=== PATIENT | female | born 1960 | race Caucasian/White ===

== ENCOUNTER → 2016-10-28 | Day surgery (SDC) | payer BC ==
[2016-10-27 11:13] VITALS: Ht 165.1 cm; Wt 97.7 kg
[~2016-10-28] VITALS: Ht 165.1 cm; Wt 97.7 kg
[~2016-10-28] MED LIST: ACYC400T PO; ALBINS/ INH; ALBU0.5N2 INH; ALBU1AER9 INH; ALPR0.5T PO; AMIT10TA6 PO; ASPI81TA28 PO; AZITTAB PO; CALC600T9 PO; CALCTAB5 PO; CETI10TA10 PO; FLUT1INH7 INH; LIDOCAINE HCL 1% MPF 5 ML VIAL ONE; MONT1TAB3 PO; MULT-506 PO; OXYB5TAB74 PO; POLY335019 PO; PRED10TA PO; PRLSR20 PO; PROB1TAB16 PO; RANI1TAB77 PO; SODIUM CHLORIDE 0.9% INJ 10 ML VIAL ONE; TRIATAB3 PO; VITA400C3 PO; VNTHFA/IN INH; VOLTAREN GEL TOP; [UNRECOGNIZED DRUG - CODE] PO
--- NOTE | 2016-10-28 14:42 | History & Physical Bridge - [place] ---
H&P Re-Evaluation Bridge Note: I have examined the patient, reviewed the History & Physical and in the interval since the performance of the History & Physical I have noted the following changes of clinical significance: No changes noted
[2016-10-28 15:06] VITALS: BP 104/66; PULSE 53; TEMP 36.6; O2SAT 95
--- NOTE | 2016-10-28 15:08 | Discharge Instructions ---
Discharge Instructions Visit Reason for Visit: Lumbar Radiculopathy Discharge Discharge Diagnosis / Problem: sacral radiculopathy Discharge Goals Goal(s): Decrease discomfort, Improve function Activity Recommendations Activity Limitations: resume your previous activity Anesthesia . Post Anesthesia Instructions: If you have had General Anesthesia or IV Sedation: * Do not drive today. * Resume driving when surgeon permits. * Do not make important decisions or sign legal documents today. * Call surgeon for: 1. Temperature elevations greater than 101 degrees F. 2. Uncontrollable pain. 3. Excessive bleeding. 4. Persistent nausea and vomiting. 5. Medication intolerance (nausea, vomiting or rash). * For nausea and vomiting use only clear liquids such as: tea, soda, bouillon until nausea subsides, then gradually increase diet as tolerated. * If you have any concerns or questions, call your surgeon's office. If physician is unavailable and it is an emergency, call 911 or go to the nearest emergency room. . Diet Recommendations Recommended Home Diet: resume previous diet Procedures Procedures Performed: CAUDAL EPIDURAL STEROID INJECTION Pending Studies Studies pending at discharge: no Medical Emergencies . Who to Call and When: Medical Emergencies: If at any time you feel your situation is an emergency, please call 911 immediately. . Non-Emergent Contact Non-Emergency issues call your: Specialist . . "Provider Documentation" section prepared by Kendall Murillo.
--- NOTE | 2016-10-28 15:55 | OPERATIVE REPORT ---
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 POSTOPERATIVE DIAGNOSIS: Same. PROCEDURE: Caudal epidural steroid injection under fluoroscopic guidance. SURGEON: Dr. Kendall Murillo. INDICATIONS: The patient is a 56-year-old white female that has had persistent sacral radicular pain following a Tarlov cyst resection. It has not responded to conservative measures including gabapentin trials. She presents today for a caudal epidural steroid injection to provide her with relief. PHYSICAL EXAMINATION: Pleasant female seated comfortably. She has a well-healed sacral incision, nontender to palpation in the lower lumbosacral area. CONSENT: Verbal and written consent was obtained from the patient. Risks and benefits were reviewed. Risks include but are not limited to epidural abscess and allergic reaction. The patient wishes to proceed. PROCEDURE: The patient was taken back to the special procedures room of [facility]. She was maintained in a prone position. Backside was cleansed with Betadine x3 and a dry sterile dressing was applied. Fluoroscope was used to identify the sacral hiatus and the overlying skin was anesthetized with 4 mL of lidocaine 1% with a 25 gauge 1.5-inch needle and a 25 gauge 3.5-inch spinal needle was then directed into the sacral canal and advanced under lateral fluoroscopic guidance. She then underwent injection after negative aspiration of 40 mg of Depo-Medrol and 4 mL of preservative free sodium chloride. Injection was well tolerated. DISPOSITION: 1. The patient is taken out into the discharge recovery area where she will be discharged home once discharge criteria have been met. 2. Follow up in the [facility] office in 2-4 weeks. I attest to the content of the Intraoperative Record and any orders documented therein. Any exceptio ns are noted below.
== END | disposition home or self-care (01) ==
LOC: X.SURG 13:42
PROVIDERS: ATTEND Physical Medicine & Rehabilitation
DX: M54.18 Radiculopathy, sacral and sacrococcygeal region (principal); L90.5 Scar conditions and fibrosis of skin

== ENCOUNTER → 2016-10-30 | Outpatient (CLI) | payer BC ==
[~2016-10-30] MED LIST changes: -LIDOCAINE HCL 1% MPF 5 ML VIAL ONE; -SODIUM CHLORIDE 0.9% INJ 10 ML VIAL ONE
--- NOTE | 2016-10-30 16:57 | DIAGNOSTIC IMAGING REPORT ---
ULTRASOUND BILATERAL LOWER EXTREMITY VENOUS CLINICAL HISTORY: Lower extremity edema. COMPARISON STUDY: No priors. TECHNIQUE: Real-time, grayscale, and color Doppler sonography of the deep veins of the right and left lower extremity was performed from the inguinal crease to the calf. Compression and augmentation were utilized. FINDINGS: There is no sonographic evidence of deep venous thrombosis identified in the right or left lower extremity. The common femoral, superficial femoral, and popliteal veins are patent and normally compressible bilaterally. The greater saphenous vein and the profunda femoris vein at the junction with the common femoral vein are clear in both legs. The visualized calf veins are patent bilaterally. IMPRESSION: There is no sonographic evidence of deep venous thrombosis identified in the right or left lower extremity. Electronically signed by: Herve Nichols M.D. 10/30/2016 4:55 PM Dictated Date/Time: 10/30/2016 4:55 PM
== END | disposition home or self-care (01) ==
LOC: C.ULTR 16:21
PROVIDERS: ATTEND Allergy & Immunology Allergy
DX: Z00.00 Encounter for general adult medical examination without abnormal findings (principal)

== ENCOUNTER → 2017-01-18 | Outpatient (CLI) | payer BC ==
[~2017-01-18] MED LIST changes: +DICL1GEL12 TOP; +DTR/5 PO; -OXYB5TAB74 PO
== END | disposition home or self-care (01) ==
LOC: C.LAB1850 16:05
PROVIDERS: ATTEND Physician Assistant Medical
DX: B99.9 Unspecified infectious disease (principal)

== ENCOUNTER → 2017-02-01 | Outpatient (CLI) | payer BC ==
--- NOTE | 2017-02-02 13:18 | MAMMOGRAPHY REPORT ---
BILATERAL DIGITAL SCREENING MAMMOGRAM TOMOSYNTHESIS WITH CAD: 02/01/2017 CLINICAL HISTORY: Routine screening. TECHNIQUE: Breast tomosynthesis in addition to standard 2D mammography was performed. Current study was also evaluated with a Computer Aided Detection (CAD) system. COMPARISON: Comparison is made to exams dated: 01/30/2016 mammogram, 01/28/2015 mammogram, 01/26/2014 mammogram, 01/25/2013 mammogram, 01/25/2012 mammogram, and 01/21/2011 mammogram - [facility] enter. BREAST COMPOSITION: There are scattered areas of fibroglandular density in both breasts. FINDINGS: No suspicious mass, architectural distortion or cluster of microcalcifications is seen. IMPRESSION: ACR BI-RADS CATEGORY 1: NEGATIVE There is no mammographic evidence of malignancy. A 1 year screening mammogram is recommended. The p atient will receive written notification of the results. Approximately 10% of breast cancers are not detected with mammography. A negative mammographic repor t should not delay biopsy if a clinically suggestive mass is present. Lilly del real/penzana:02/01/2017 16:58:18 Silk Brusher: Eliseo Chavez RT(R)(M), [facility] letter sent: Normal 1/2 BI-RADS Code: ACR BI-RADS Category 1: Negative
== END | disposition home or self-care (01) ==
LOC: C.MAMM 15:27
PROVIDERS: ATTEND Obstetrics & Gynecology
DX: Z12.31 Encounter for screening mammogram for malignant neoplasm of breast (principal)

== ENCOUNTER 2017-03-26 11:04 | Emergency (ER) | payer BC ==
[~2017-03-26] VITALS: Ht 165.1 cm; Wt 100.0 kg
[~2017-03-26 11:04] MED LIST changes: -ALBINS/ INH; -AZITTAB PO; -CALC600T9 PO; -DICL1GEL12 TOP; -PRED10TA PO; -RANI1TAB77 PO; -VNTHFA/IN INH; -VOLTAREN GEL TOP; -[UNRECOGNIZED DRUG - CODE] PO
[2017-03-26 11:16] VITALS: TEMP 36.6; Ht 165.1 cm; Wt 100.0 kg
[2017-03-26] MEDS ORDERED: [UNRECOGNIZED DRUG - CODE] PO (11:44)
[2017-03-26] MEDS ORDERED: METHYLPREDNISOLONE 125 MG VIAL IV STA (11:55)
[2017-03-26] MEDS ORDERED: ALBUT/IPRATROP 3MG/0.5MG NEB 3 ML VIAL INH STA ×2 (11:55→12:51)
--- NOTE | 2017-03-26 12:14 | EMERGENCY ROOM VISIT NOTE ---
ED Visit Note First contact with patient: 11:41 CHIEF COMPLAINT: Shortness of breath, wheezing, chest congestion HISTORY OF PRESENT ILLNESS: This 57-year-old female patient presents to the emergency department complaining of worsening shortness of breath, wheezing, chest congestion, which was gradual in onset 1 week and is moderately severe now. Patient states last , she began experiencing chills, sneezing, runny nose, fatigue. She spent most of the day in bed. Patient states she was able to get up and go see her tearoom host on Wednesday, however continued to experience the same symptoms. Patient states on Wednesday, she began experiencing a worsening cough, worsening wheezing, overall fatigue. She states she began using DayQuil at this time with minimal relief. Patient states by Wednesday, the symptoms were worsening, and she was experiencing significant postnasal drainage, sinus congestion, wheezing, and began coughing green sputum at this point. On Wednesday, patient was seen at [facility], where a chest x-ray was performed, and she was given a breathing treatment. Patient states she was told the chest x-ray was normal, and was started on 60 mg of prednisone daily 5 days, which she has finished yesterday, and Augmentin 1 tablet twice daily for 10 days. Patient states she is now on day 6. She reported initial improvement in symptoms while on prednisone, however states symptoms have worsened since she has been off of prednisone. She states it did increase her cough the first 2-3 days. Patient states she was off work earlier this week, with instructions to get plenty of rest, use her nebulizers and/or albuterol every 4 hours, and drink plenty of fluids. She states she did this and continues to do this, however is not feeling any better, and feels that her respiratory symptoms have worsened. Patient is now experiencing wheezing/ rattling in her chest, despite the use of her albuterol nebulizer/inhaler every 4 hours. Patient denies fever or chills at this point. She also denies hemoptysis, chest pain, headache, nausea, vomiting. Patient does report cough which is minimally productive, she continues to experience sinus congestion, runny nose, postnasal drainage. The patient has a history of asthma and states she often gets wheezing when she gets sick, however this is worse than she has experienced in a while. Patient states she attempted to contact her PCP for follow-up today, however was unable to make it to the appointment which was offered to her. REVIEW OF SYSTEMS: A 10 system review of systems was performed with positives and pertinent negatives listed in the history of present illness. All other systems were reviewed and are negative. ALLERGIES: Latex, doxycycline, magnesium salicylate, bupropion, fluoxetine, sertraline, gabapentin, meloxicam, citalopram, silver MEDICATIONS: Xanax, calcium, multivitamin, oxybutynin chloride, triamterene/HCTZ , vitamin E, albuterol HFA, albuterol nebulizer solution, probiotic, acyclovir, Briel, Zyrtec, aspirin, amitriptyline, Singulair, omeprazole, MiraLAX PMH: Asthma, hypertension, anxiety, herpes virus, seasonal allergies, depression , GERD, constipation. SOCIAL HISTORY: Patient lives locally with her family. She denies drug, tobacco , alcohol use. PHYSICAL EXAM: Vital Signs: Reviewed Nurse's notes. Oxygen saturation was 94 % on room air. Patient is afebrile with temperature of 36.6C. GENERAL: 57-year- old female, Alert, oriented and coherent. The patient is able to speak in complete sentences. HEAD: Normocephalic atraumatic. EARS: External auditory canals clear, tympanic membranes pearly marks without erythema or effusion bilaterally. EYES: Pupils equal round and reactive to light and accommodation. Conjunctivae without injection, sclerae without icterus. Extraocular movements intact. NOSE: Patent, turbinates without inflammation or discharge. No sinus tenderness. MOUTH: Mucous membranes moist. Tonsils are not enlarged. Pharynx without erythema or exudate. Uvula midline. Airway patent. Tongue does not deviate. NECK: Supple without nuchal rigidity. No lymphadenopathy. No thyromegaly. Cervical spine is nontender. No JVD. CHEST: Symmetrical expansion. No retractions or accessory muscle use. HEART: Regular rate and normal heart sounds, no murmur, gallop or rub. LUNGS: Breath sounds equal but significantly diminished in intensity on both sides. Bilateral wheezes heard but no rales or pleuritic rub. SKIN: Capillary refill less than 2 seconds. EXTREMITIES: No swelling, cyanosis or tenderness in the arms or legs. EMERGENCY DEPARTMENT COURSE: I examined the patient. The patient was given an albuterol/atrovent nebulizer treatment, 125 mg IV Solu-Medrol and had minimal improvement in the subjective state. Chest x-ray was completed, and reviewed by myself, Dr. De León, and radiology. Findings show: FINDINGS: Lung volumes are normal. There is no pneumothorax or pleural effusion. There is no evidence of pulmonary edema. Minimal left basilar opacity favors atelectasis. Linear right middle lobe opacity favors atelectasis. Cardiac size is normal. Mediastinal contours are normal. IMPRESSION: Linear right middle lobe opacity. The configuration favors atelectasis. A mild infectious process could appear similar. Radiographic follow up to ensure resolution is recommended. Recheck lungs: Patient continues to wheeze, no rales, rhonchi. Wheezing has improved minimally. Repeat DuoNeb treatment, recheck lungs: Patient continues to wheeze, no rales, rhonchi. Wheezing has improved minimally. Lab work ordered to r/o PE. D-Dimer <250. At this time, patient continues to report difficulty with breathing. I ordered an hour long duoneb treatment, which patient states did help significantly at this point. I and Dr. De León re-checked patient's lungs after treatment was complete, and continued to note significant wheezing in bilateral lungs, however , I feel that this continues to improve. EKG performed which showed sinus bradycardia. No ST changes. I discussed the case with Dr. De León. We discussed options with patient including admission for observation due to possible pneumonia vs. atelectasis of right middle lobe opacity. Pt. feels that she is good enough to go home. She has been normotensive, sinus rhythm, not tachycardic, and afebrile throughout ED visit. We discussed with the patient prednisone taper, adding antibiotics, and the importance of following up with her PCP or in the ED if no improvement or if symptoms worsen. Pt. is in agreement with this plan. The patient was discharged home in stable condition. DIAGNOSIS: Acute bronchitis, with history of asthma; Right middle lobe atelectasis vs. pneumonia DIFFERENTIAL DIAGNOSIS: Pneumonia, acute asthma exacerbation, pulmonary embolism , acute upper respiratory infection, acute sinusitis, bronchiectasis, pleural effusion, pneumothorax, COPD, influenza, heart failure, acute coronary syndrome , and others. DISCHARGE INSTRUCTIONS AND TREATMENT:You were prescribed a Z-Rambo to be taken as directed. This is an antibiotic. Take this medication in addition to finishing her course of Augmentin which was prescribed by urgent care earlier this week. All antibiotics have the potential to cause diarrhea. Stop this medication and contact a medical provider if you were to develop any significant adverse side effects including: wheezing, shortness of breath, passing out, vomiting, or a diffuse rash. Always take antibiotics as directed and COMPLETE the ENTIRE course regardless of the improvement of your symptoms. You have been prescribed Prednisone. This is a steroid which will help decrease your inflammation in your lungs and help your breathing. Take this medicine as prescribed. Take the ENTIRE 10 day course. Start with 50 mg daily x2 days, then taper down as directed every 2 days for 10 days.It is best to take steroids early in the morning as PM dosing can affect your sleeping patterns. Follow-up with your primary care provider in 2-3 days for recheck of your symptoms. You should have a follow-up x-ray completed in order to recheck atelectasis versus pneumonia noticed on chest x-ray in the emergency department. Follow-up sooner in the emergency department if you experience chest pain, dyspnea, coughing up blood, fever, chills, nausea, body aches, or other worsening symptoms. Continue to use albuterol every 4-6 hours as prescribed and as needed for wheezing, trouble breathing. Problem List Medical Problems: (1) Asthma Status: Chronic (2) Mitral valve prolapse Status: Chronic (3) Sinusitis Status: Chronic Current/Historical Medications Scheduled Acyclovir (Acyclovir), 1 TAB PO QAM Amitriptyline Hcl (Elavil), 1.5 TAB PO HS Aspirin (Aspirin Ec), 81 MG PO Q2D Azithromycin (Zithromax Z-Rambo), 0 PO UD Calcium (Caltrate), 600 MG PO DAILY Cetirizine Hcl (Zyrtec), 10 MG PO QAM Fluticasone Furoate-Vilanterol (Breo Ellipta 200-25 Mcg/INH), 1 PUFF INH QAM Montelukast Sodium (Singulair), 10 MG PO HS Multivitamin (Multivitamin), 1 TAB PO DAILY Omeprazole (Prilosec), 20 MG PO QAM Oxybutynin Chloride (Ditropan), 5 MG PO QAM Prednisone Tab (Prednisone), 10 MG PO QD Probiotic Product (Probiotic), 1 TAB PO DAILY Lowland Jelly-Bee Pollen-Ginseng (Arabic Ginseng Complex), 1 CAP PO DAILY Triamterene/Hctz (Triamterene/Hctz 37.5-25MG), 1 TAB PO QAM Vitamin E (Vitamin E 400 Iu), 400 INTER.UNIT PO DAILY Scheduled PRN Albuterol (Proair Hfa), 1-2 PUFFS INH QID PRN for Wheezing Albuterol 0.5% Soln (Ventolin 0.5% Soln), INH Q6H PRN for Wheezing Alprazolam (Xanax), 0.5 MG PO TID PRN for Anxiety Polyethylene Glycol 3350 (Miralax), 17 GM PO Q2D PRN for Constipation Allergies Coded Allergies: Bupropion (Verified Allergy, Unknown, unknown, 03/26/17) Citalopram (Verified Allergy, Unknown, unknown, 03/26/17) Doxycycline (Verified Allergy, Unknown, unknown, 03/26/17) Escitalopram (Verified Allergy, Unknown, unknown, 03/26/17) Fluoxetine (Verified Allergy, Unknown, unknown, 03/26/17) Gabapentin (Verified Allergy, Unknown, UNKNOWN "I DON'T REMEMBER", 03/26/17) Latex1 -Allergic Contact Dermititis (Verified Allergy, Unknown, HIVES, 03/26) Magnesium Salicylate (Verified Allergy, Unknown, "ALLERGIC TO MSG ON SALADS", 03/26/17) Meloxicam (Verified Allergy, Unknown, "NUMBNESS IN ARMS" AND VIOLENT GOLD/ MIGRAINES, 03/26/17) Sertraline (Verified Allergy, Unknown, unknown, 03/26/17) Silver (Verified Allergy, Unknown, SKIN BREAKOUT, 03/26/17) Uncoded Allergies: ANTIDPRESSANTS (Allergy, Severe, hives, sob, anaphylaxsis, 06/26/11) Vital Signs Date Time Temp Pulse Resp B/P (MAP) Pulse Ox O2 Delivery O2 Flow Rate FiO2 03/26/17 15:55 67 15 117/54 95 Room Air 03/26/17 14:58 63 16 118/70 98 03/26/17 14:57 54 03/26/17 14:45 75 16 95 Room Air 03/26/17 13:27 52 18 105/56 96 Room Air 03/26/17 12:24 58 18 106/34 94 Room Air 03/26/17 11:29 94 Room Air 03/26/17 11:16 36.6 61 22 123/65 94 Room Air Laboratory Results 03/26/17 14:40 Red Blood Count 3.94, Mean Corpuscular Volume 92.9, Mean Corpuscular Hemoglobin 30.5, Mean Corpuscular Hemoglobin Concent 32.8, Mean Platelet Volume 11.0, Neutrophils (%) (Auto) 66.9, Lymphocytes (%) (Auto) 24.8, Monocytes (%) (Auto) 4.8, Eosinophils (%) (Auto) 0.5, Basophils (%) (Auto) 0.3, Neutrophils # (Auto) 5.30, Lymphocytes # (Auto) 1.96, Monocytes # (Auto) 0.38, Eosinophils # (Auto) 0.04, Basophils # (Auto) 0.02 Test 03/26/17 14:40 White Blood Count 7.91 K/uL (4.8-10.8) Red Blood Count 3.94 M/uL (4.2-5.4) Hemoglobin 12.0 g/dL (12.0-16.0) Hematocrit 36.6 % (37-47) Mean Corpuscular Volume 92.9 fL (80-100) Mean Corpuscular Hemoglobin 30.5 pg (25-34) Mean Corpuscular Hemoglobin Concent 32.8 g/dl (32-36) Platelet Count 163 K/uL (130-400) Mean Platelet Volume 11.0 fL (7.4-10.4) Neutrophils (%) (Auto) 66.9 % Lymphocytes (%) (Auto) 24.8 % Monocytes (%) (Auto) 4.8 % Eosinophils (%) (Auto) 0.5 % Basophils (%) (Auto) 0.3 % Neutrophils # (Auto) 5.30 K/uL (1.4-6.5) Lymphocytes # (Auto) 1.96 K/uL (1.2-3.4) Monocytes # (Auto) 0.38 K/uL (0.11-0.59) Eosinophils # (Auto) 0.04 K/uL (0-0.5) Basophils # (Auto) 0.02 K/uL (0-0.2) RDW Standard Deviation 49.1 fL (36.4-46.3) RDW Coefficient of Variation 14.3 % (11.5-14.5) Immature Granulocyte % (Auto) 2.7 % Immature Granulocyte # (Auto) 0.21 K/uL (0.00-0.02) D-Dimer 220 ug/L FEU (0-500) Medications Administered Medications (Trade) Dose Ordered Sig/Vicki Route Start Time Stop Time Status Last Admin Dose Admin Albuterol/ Ipratropium (Duoneb) 3 ml NOW STAT INH 03/26/17 11:55 03/26/17 12:00 DC 03/26/17 12:26 3 ML Methylprednisolone Sodium Succinate (Solu-Medrol IV) 125 mg NOW STAT IV 03/26/17 11:55 03/26/17 12:00 DC 03/26/17 12:26 125 MG Albuterol/ Ipratropium (Duoneb) 3 ml NOW STAT INH 03/26/17 12:51 03/26/17 12:54 DC 03/26/17 13:14 3 ML Albuterol/ Ipratropium (Duoneb) 12 ml ONE ONCE INH 03/26/17 14:30 03/26/17 14:31 DC 03/26/17 14:45 12 ML Departure Information Impression Primary Impression: Acute bronchitis Additional Impressions: Asthma Atelectasis Dispostion Home / Self-Care Condition GOOD Prescriptions Prednisone Tab (PREDNISONE) 10 Mg Tab 10 MG PO QD for 10 Days, #30 TAB Take 5 tabs daily x2 days, 4 tabs daily x2 days, 3 tabs daily x2 days, 2 tabs daily x2 days, 1 tab daily x2 days. Prov: Ammy Lucero PA-C 03/26/17 Azithromycin (ZITHROMAX Z-RAMBO) 250 Mg Tab 0 PO UD, #1 PKT 2 TABS DAY 1, THEN 1 TAB DAILY FOR 4 DAYS Prov: Ammy Lucero PA-C 03/26/17 Referrals Vinayak Wood M.D. (PCP) 2-3 days Patient Instructions My [facility] Additional Instructions You were prescribed a Z-Rambo to be taken as directed. This is an antibiotic. Take this medication in addition to finishing her course of Augmentin which was prescribed by urgent care earlier this week. All antibiotics have the potential to cause diarrhea. Stop this medication and contact a medical provider if you were to develop any significant adverse side effects including: wheezing, shortness of breath, passing out, vomiting, or a diffuse rash. Always take antibiotics as directed and COMPLETE the ENTIRE course regardless of the improvement of your symptoms. You have been prescribed Prednisone. This is a steroid which will help decrease your inflammation in your lungs and help your breathing. Take this medicine as prescribed. Take the ENTIRE 10 day course. Start with 50 mg daily x2 days, then taper down as directed every 2 days for 10 days.It is best to take steroids early in the morning as PM dosing can affect your sleeping patterns. Follow-up with your primary care provider in 2-3 days for recheck of your symptoms. You should have a follow-up x-ray completed in order to recheck atelectasis versus pneumonia noticed on chest x-ray in the emergency department. Follow-up sooner in the emergency department if you experience chest pain, dyspnea, coughing up blood, fever, chills, nausea, body aches, or other worsening symptoms. Continue to use albuterol every 4-6 hours as prescribed and as needed for wheezing, trouble breathing. Work Instructions Return To Work: 3 days Additional Work Instructions: May return to work sooner if you are feeling better. Problem Qualifiers Primary Impression: Acute bronchitis Bronchitis organism: unspecified organism Qualified Codes: J20.9 - Acute bronchitis, unspecified Additional Impressions: Asthma Asthma severity: moderate persistent Asthma complication type: with acute exacerbation Qualified Codes: J45.41 - Moderate persistent asthma with (acute ) exacerbation
--- NOTE | 2017-03-26 12:40 | DIAGNOSTIC IMAGING REPORT ---
CHEST 2 VIEWS ROUTINE CLINICAL HISTORY: Wheezing. Dyspnea. COMPARISON STUDY: Chest radiograph December 24, 2015. FINDINGS: Lung volumes are normal. There is no pneumothorax or pleural effusion. There is no evidence of pulmonary edema. Minimal left basilar opacity favors atelectasis. Linear right middle lobe opacity favors atelectasis. Cardiac size is normal. Mediastinal contours are normal. IMPRESSION: Linear right middle lobe opacity. The configuration favors atelectasis. A mild infectious process could appear similar. Radiographic follow up to ensure resolution is recommended. Electronically signed by: Mehrdad Gonzalez M.D. 03/26/2017 12:39 PM Dictated Date/Time: 03/26/2017 12:31 PM
[2017-03-26] MEDS ORDERED: ALBUT/IPRATROP 3MG/0.5MG NEB 3 ML VIAL INH ONE (14:30)
[2017-03-26 14:45] VITALS: PULSE 75; O2SAT 95
[2017-03-26 15:01] LABS: BASO % 0.3 %; BASO ABS # 0.02 K/uL (0-0.2); COMPLETE YES; EOS % 0.5 %; HEMATOCRIT 36.6 % (37-47); IG% 2.7 %; LYMPH % 24.8 %; LYMPH ABS # 1.96 K/uL (1.2-3.4); MEAN CELL VOLUME 92.9 fL (80-100); MEAN CORPUSCULAR HEMOGLOBIN 30.5 pg (25-34); MEAN CORPUSCULAR HGB CONC 32.8 g/dl (32-36); MONO % 4.8 %; NEUT % 66.9 %; PLATELET COUNT 163 K/uL (130-400); RED BLOOD COUNT 3.94 M/uL (4.2-5.4); WHITE BLOOD COUNT 7.91 K/uL (4.8-10.8)
[2017-03-26] MEDS ORDERED: PRED10TA PO (16:31)
[2017-03-26] MEDS ORDERED: AZITTAB PO (16:31)
[2017-03-26 17:12] VITALS: BP 114/68; PULSE 59; O2SAT 96
--- NOTE | 2017-03-26 18:23 | EMERGENCY ROOM VISIT NOTE ---
ED Visit Note First contact with patient: 11:41 I have personally evaluated this patient examined her and reviewed the pertinent labs and data. I have discussed the case with Ammy Lucero, the physician diver assistant and agree with the plan. Please refer to the PA note. This patient has a history of asthma and comes in after wheezing. She feels severely better after receiving an hour-long neb. On my exam after she had received a neb ,she is resting comfortably, she is not tachypneic, she is speaking full sentences, and is in no respiratory distress. She is asking to go home. Her pulse ox is in the mid 90s so therefore she is non-hypoxemic. On exam of her lungs, she does have good air movement and she does have some residual wheezes. She did receive some IV steroids here as well. I have reviewed her chest x-ray and she has some atelectasis in the right midlung. It could be an early infiltrate she is on Augmentin. We will broaden her antibiotic coverage with azithromycin Z-Rambo. She has received this before. We will also increase her steroids with a taper over the last next couple days. Her d-dimer is within normal limits and in a low pretest probability makes PE highly unlikely. EKG shows sinus bradycardia without ischemic changes and no change when compared to the old EKG. She feels good and like to go home. She should follow on Wednesday for recheck and return to ER over the weekend if symptoms worsen.
[2017-07-09] MEDS ORDERED: FLUT1INH7 INH (15:36)
[2017-07-09] MEDS ORDERED: CALC600T9 PO (15:36)
[2017-07-09] MEDS ORDERED: RANI1TAB77 PO (15:36)
[2017-07-09] MEDS ORDERED: VOLTAREN GEL TOP (15:37)
[2017-07-09] MEDS ORDERED: ALBINS/ INH (16:00)
[2017-07-09] MEDS ORDERED: VNTHFA/IN INH (16:00)
[2017-09-22] MEDS ORDERED: DICL1GEL12 TOP (15:06)
== END 2017-03-26 17:13 | disposition home or self-care (01) ==
LOC: C.EDB 11:05
DX: J20.9 Acute bronchitis, unspecified (principal); J45.41 Moderate persistent asthma with (acute) exacerbation; J98.11 Atelectasis; I10 Essential (primary) hypertension; F41.9 Anxiety disorder, unspecified; F32.9 Major depressive disorder, single episode, unspecified; K21.9 Gastro-esophageal reflux disease without esophagitis; J30.2 Other seasonal allergic rhinitis; I34.1 Nonrheumatic mitral (valve) prolapse; Z79.82 Long term (current) use of aspirin; Z79.899 Other long term (current) drug therapy

== ENCOUNTER → 2017-06-25 | Outpatient (CLI) | payer BC ==
[~2017-06-25] MED LIST changes: +ALBINS/ INH; +CALC600T9 PO; -DTR/5 PO; +OXYB5TAB74 PO; +RANI1TAB77 PO; +VNTHFA/IN INH; +VOLTAREN GEL TOP; +[UNRECOGNIZED DRUG - CODE] PO
[2017-06-25 17:31] LABS: URINE APPEARANCE CLEAR (CLEAR); URINE BILIRUBIN NEG (NEG); URINE COLOR YELLOW; URINE NITRITE NEG (NEG); URINE PH 5.5 (4.5-7.5); URINE SPECIFIC GRAVITY 1.026 (1.000-1.030); UROBILINOGEN NEG (NEG)
[2017-06-25 17:34] LABS: MANUAL MICROSCOPIC REQUIRED? NO; REVIEW REQ? NO
== END | disposition home or self-care (01) ==
LOC: C.LAB1850 16:59
PROVIDERS: ATTEND Physician Assistant Medical
DX: R39.9 Unspecified symptoms and signs involving the genitourinary system (principal)

== ENCOUNTER → 2017-06-28 | Outpatient (CLI) | payer BC ==
--- NOTE | 2017-06-28 07:47 | DIAGNOSTIC IMAGING REPORT ---
ABDOMEN COMPLETE (US) CLINICAL HISTORY: R10.9 Abdominal [id number] COMPARISON STUDY: 01/23/2013 FINDINGS: The pancreas appears sonographically normal. The liver is of slightly increased echogenicity, nonspecific finding often seen in hepatic steatosis. There is suspected focal fatty sparing in the duncan hepatis region. No gallstones are visualized. There is no ductal dilatation. The common bile duct measures 4 mm. The right kidney measures 10.1 cm in length. The left kidney measures 10.1 cm in length. No renal masses are visualized. There is no hydronephrosis. The spleen measures 11.4 cm in length. A splenule is visualized. There is no evidence of abdominal aortic dilatation. IMPRESSION: 1. Increased hepatic echogenicity, a nonspecific finding most often seen in hepatic steatosis 2. No evidence of ductal dilatation 3. Ultrasonographically normal gallbladder, spleen and kidneys. Electronically signed by: Adan Smith M.D. 06/28/2017 7:46 AM Dictated Date/Time: 06/28/2017 7:44 AM
== END | disposition home or self-care (01) ==
LOC: C.ULTR 06:47
PROVIDERS: ATTEND Physician Assistant Medical
DX: R10.9 Unspecified abdominal pain (principal)

== ENCOUNTER → 2017-07-06 | Outpatient (CLI) | payer BC ==
[~2017-07-06] MED LIST changes: +SINCALIDE INJ 2 MCG in SODIUM CHLORIDE 0.9% 100ML 100 ML IV ONE
--- NOTE | 2017-07-06 13:16 | DIAGNOSTIC IMAGING REPORT ---
HEPATOBILIARY EF IMAGING CLINICAL HISTORY: 57 years-old Female presenting with reflux, bloating, epigastric pain. TECHNIQUE: Dynamic imaging of the gallbladder was initiated 65 minutes after administration of 5.6 mCi of technetium 99m Choletec. Imaging was obtained every 5 minutes over a span of 40 minutes. 2 mcg of sincalide was injected 5 minutes prior to the start of imaging. The gallbladder ejection fraction was calculated. COMPARISON: Abdominal ultrasound from 06/28/2017. FINDINGS: The hepatobiliary scan shows normal filling of the gallbladder at the start of imaging. Expected activity within the bowel also noted. Gallbladder ejection fraction measured at 14% (normal greater than 50%). IMPRESSION: 1. Abnormal gallbladder ejection fraction. This could indicate chronic cholecystitis. Electronically signed by: Efra Stahl M.D. 07/06/2017 1:15 PM Dictated Date/Time: 07/06/2017 1:12 PM
== END | disposition home or self-care (01) ==
LOC: C.NUCL 10:21
PROVIDERS: ATTEND Registered Nurse
DX: K21.9 Gastro-esophageal reflux disease without esophagitis (principal); R14.0 Abdominal distension (gaseous); R10.13 Epigastric pain; R11.2 Nausea with vomiting, unspecified; R93.2 Abnormal findings on diagnostic imaging of liver and biliary tract

== ENCOUNTER → 2017-07-19 | Day surgery (SDC) | payer BC ==
[2017-07-09 15:39] VITALS: Ht 165.1 cm; Wt 104.5 kg
[~2017-07-19] VITALS: Ht 165.1 cm; Wt 104.5 kg
[~2017-07-19] MED LIST changes: -ALBU0.5N2 INH; -ALBU1AER9 INH; -AMIT10TA6 PO; -CALCTAB5 PO; +LIDOCAINE HCL 2% 2 ML VIAL (20MG/ML) ONE; +MIDAZOLAM HCL 1 MG/ML 2ML VIAL ONE; +PROPOFOL IV EMULSION 10 MG/ML 20 ML VIAL IV ONE; -SINCALIDE INJ 2 MCG in SODIUM CHLORIDE 0.9% 100ML 100 ML IV ONE; -[UNRECOGNIZED DRUG - CODE] PO
--- NOTE | 2017-07-19 10:34 | Endo History and Physical ---
History & Physical Date of Service: Jul 19, 2017. Chief Complaint: laryngopharyngeal reflux Referring Physician: Dr. Wood History of Present Illness 57 yo CF who presents for EGD secondary to GERD. Past Surgical History Hx Cardiac Surgery: No Hx Abdominal Surgery: Yes (PARTIAL HYSTERTECTOMY) Hx of Implantable Prosthesis: No Hx Post-Op Nausea and Vomiting: No Hx Cancer Surgery: No Hx Thoracic Surgery: No Hx Orthopedic: Yes (LOWER BACK SURG/CYST REMOVAL) Hx Urinary Tract Surgery: No Family History None Social History Smoking Status: Former Smoker Hx Substance Use: No Hx Alcohol Use: Yes (OCCASIONAL) Allergies Coded Allergies: Amitriptyline (Verified Allergy, Unknown, VERY TIRED, 07/19/17) Bupropion (Verified Allergy, Unknown, unknown, 07/19/17) Citalopram (Verified Allergy, Unknown, unknown, 07/19/17) Doxycycline (Verified Allergy, Unknown, unknown, 07/19/17) Escitalopram (Verified Allergy, Unknown, unknown, 07/19/17) Fluoxetine (Verified Allergy, Unknown, unknown, 07/19/17) Gabapentin (Verified Allergy, Unknown, UNKNOWN "I DON'T REMEMBER", 07/19/17 ) Latex1 -Allergic Contact Dermititis (Verified Allergy, Unknown, HIVES, 07/19/17) Magnesium Salicylate (Verified Allergy, Unknown, "ALLERGIC TO MSG ON SALADS", 07/19/17) Meloxicam (Verified Allergy, Unknown, "NUMBNESS IN ARMS" AND VIOLENT GOLD/ MIGRAINES, 07/19/17) Sertraline (Verified Allergy, Unknown, unknown, 07/19/17) Silver (Verified Allergy, Unknown, SKIN BREAKOUT, 07/19/17) Uncoded Allergies: ANTIDPRESSANTS (Allergy, Severe, hives, sob, anaphylaxsis, 06/26/11) Current Medications Reported Home Medications Medications Dose Route/Sig Max Daily Dose Days Date Category Dose Instructions Ventolin Hfa (Albuterol) 200 Puffs/39421 Mcg Aers 1-2 Puffs INH Q6H PRN 07/09/17 Reported Proventil 0.083% 2.5MG/3ML (Albuterol Sulf) 2.5 Mg/3 Ml Nebu 2.5 Mg INH QID PRN 07/09/17 Reported [Voltaren Gel] 1 Dose TOP PRN 07/09/17 Reported 1% Ranitidine [address] (Ranitidine HCl) 150 Mg Tab 150 Mg PO HS 07/09/17 Reported Calcium + D (Calcium Carbonate-Vitamin D) 1 Tab Tab 600 Mg PO QAM 07/09/17 Reported Breo Ellipta 200-25 Mcg/INH (Fluticasone Furoate-Vilanterol) 1 Inh Inh 1 Dose INH PRN 07/09/17 Reported USES WITH ALBUTEROL NEBULIZER Miralax (Polyethylene Glycol 3350) 1 Pow Pow 17 Gm PO Q2D PRN 10/27/16 Reported Prilosec (Omeprazole) 20 Mg Capcr 40 Mg PO QAM 10/27/16 Reported Singulair (Montelukast Sodium) 10 Mg Tab 10 Mg PO HS 10/27/16 Reported Aspirin Ec (Aspirin) 81 Mg Tab 81 Mg PO Q2D 10/27/16 Reported Zyrtec (Cetirizine Hcl) 10 Mg Tab 10 Mg PO QAM 10/27/16 Reported Acyclovir 400 Mg Tab 1 Tab PO QAM 10/27/16 Reported Probiotic (Probiotic Product) 1 Tab Tab 1 Tab PO QAM 05/15/16 Reported Vitamin E 400 Iu (Vitamin E) 400 Unit Cap 400 Inter.unit PO QAM 08/10/13 Reported Triamterene/Hctz 37.5-25MG (Triamterene/HCTZ) 1 Tab Tab 1 Tab PO QAM 08/10/13 Reported Ditropan (Oxybutynin Chloride) 5 Mg Tab 5 Mg PO QAM 08/10/13 Reported Multivitamin (Multivitamins) Tab 1 Tab PO QAM 08/10/13 Reported Xanax (Alprazolam) 0.5 Mg Tab 0.5 Mg PO QAM 08/10/13 Reported AND PRN Vital Signs Weight (Kilograms): 104.55 Height (Feet): 5 Height (Inches): 5 Date Time Temp Pulse Resp B/P (MAP) Pulse Ox O2 Delivery O2 Flow Rate FiO2 07/19/17 09:52 36.5 50 20 124/50 (74) 98 Room Air Physical Exam General Appearance: WD/WN, no apparent distress Respiratory/Chest: Auscultation: breath sounds normal Cardiovascular: Heart Auscultation: RRR Abdomen: Bowel Sounds: normal Inspection & Palpation: soft, non-distended, no tenderness, guarding & rebound Assessment and Plan Assessment: 57 yo CF who presents for EGD secondary to GERD. Plan: Proceed with EGD
--- NOTE | 2017-07-19 10:52 | Discharge Instructions ---
Endoscopy Patient Instructions Date / Procedure(s) Performed Jul 19, 2017. EGD Allergy Information Coded Allergies: Amitriptyline (Verified Allergy, Unknown, VERY TIRED, 07/19/17) Bupropion (Verified Allergy, Unknown, unknown, 07/19/17) Citalopram (Verified Allergy, Unknown, unknown, 07/19/17) Doxycycline (Verified Allergy, Unknown, unknown, 07/19/17) Escitalopram (Verified Allergy, Unknown, unknown, 07/19/17) Fluoxetine (Verified Allergy, Unknown, unknown, 07/19/17) Gabapentin (Verified Allergy, Unknown, UNKNOWN "I DON'T REMEMBER", 07/19/17 ) Latex1 -Allergic Contact Dermititis (Verified Allergy, Unknown, HIVES, 07/19/17) Magnesium Salicylate (Verified Allergy, Unknown, "ALLERGIC TO MSG ON SALADS", 07/19/17) Meloxicam (Verified Allergy, Unknown, "NUMBNESS IN ARMS" AND VIOLENT GOLD/ MIGRAINES, 07/19/17) Sertraline (Verified Allergy, Unknown, unknown, 07/19/17) Silver (Verified Allergy, Unknown, SKIN BREAKOUT, 07/19/17) Uncoded Allergies: ANTIDPRESSANTS (Allergy, Severe, hives, sob, anaphylaxsis, 06/26/11) Discharge Date / Findings Jul 19, 2017. Gastritis s/p biopsies Medication Instructions Stopped Medication(s): took ASA yesterday OK to resume all medications today as prescribed Reported Home Medications Medications Dose Route/Sig Max Daily Dose Days Date Category Dose Instructions Ventolin Hfa (Albuterol) 200 Puffs/31427 Mcg Aers 1-2 Puffs INH Q6H PRN 07/09/17 Reported Proventil 0.083% 2.5MG/3ML (Albuterol Sulf) 2.5 Mg/3 Ml Nebu 2.5 Mg INH QID PRN 07/09/17 Reported [Voltaren Gel] 1 Dose TOP PRN 07/09/17 Reported 1% Ranitidine [address] (Ranitidine HCl) 150 Mg Tab 150 Mg PO HS 07/09/17 Reported Calcium + D (Calcium Carbonate-Vitamin D) 1 Tab Tab 600 Mg PO QAM 07/09/17 Reported Breo Ellipta 200-25 Mcg/INH (Fluticasone Furoate-Vilanterol) 1 Inh Inh 1 Dose INH PRN 07/09/17 Reported USES WITH ALBUTEROL NEBULIZER Miralax (Polyethylene Glycol 3350) 1 Pow Pow 17 Gm PO Q2D PRN 10/27/16 Reported Prilosec (Omeprazole) 20 Mg Capcr 40 Mg PO QAM 10/27/16 Reported Singulair (Montelukast Sodium) 10 Mg Tab 10 Mg PO HS 10/27/16 Reported Aspirin Ec (Aspirin) 81 Mg Tab 81 Mg PO Q2D 10/27/16 Reported Zyrtec (Cetirizine Hcl) 10 Mg Tab 10 Mg PO QAM 10/27/16 Reported Acyclovir 400 Mg Tab 1 Tab PO QAM 10/27/16 Reported Probiotic (Probiotic Product) 1 Tab Tab 1 Tab PO QAM 05/15/16 Reported Vitamin E 400 Iu (Vitamin E) 400 Unit Cap 400 Inter.unit PO QAM 08/10/13 Reported Triamterene/Hctz 37.5-25MG (Triamterene/HCTZ) 1 Tab Tab 1 Tab PO QAM 08/10/13 Reported Ditropan (Oxybutynin Chloride) 5 Mg Tab 5 Mg PO QAM 08/10/13 Reported Multivitamin (Multivitamins) Tab 1 Tab PO QAM 08/10/13 Reported Xanax (Alprazolam) 0.5 Mg Tab 0.5 Mg PO QAM 08/10/13 Reported AND PRN Provider Instructions Activity Restrictions - No exercising or heavy lifting for 24 hours. - Do not drink alcohol the day of the procedure. - Do not drive a car or operate machinery until the day after the procedure. - Do not make any important decisions or sign important papers in 24 hours after the procedure. Following Day: - Return to full activity which may include returning to work/school. Diet Start your diet with liquids and light foods (jello, soup, juice, toast). Then eat your usual diet if not nauseated. Treatment For Common After Affects For mild abdominal pain, bloating, or excessive gas: - Rest - Eat lightly - Lie on right side Follow-Up Information Follow-up with Dr. Wood as scheduled Anesthesia Information What You Should Know You have had a procedure that required some medicine to reduce anxiety and discomfort. This treatment is called moderate sedation. After receiving the treatment, you may be sleepy, but you will be able to breathe on your own. The effects of the treatment may last for several hours. Follow these instructions along with Activity/Diet recommendations noted above: * Do NOT do anything where dizziness or clumsiness would be dangerous. * Rest quietly at home today, then you can be up and about tomorrow. * Have a responsible person stay with you the rest of today. * You may have had an I.V. today. If so, you may take the dressing off later today. Recommendations Call your doctor if: * Trouble breathing * Continuous vomiting for more than 24 hours * Temperature above 101 degrees * Severe abdominal pain or bloating * Pain not relieved by pain medicine ordered * There is increased drainage or redness from any incision * A large amount of rectal bleeding greater than 2-3 tablespoons. (If you had a polyp/s removed or have hemorrhoids, a small amount of blood - from the rectum is to be expected.) * You have any unanswered questions or concerns. IN THE EVENT OF A SERIOUS EMERGENCY, GO TO THE NEAREST EMERGENCY ROOM Your discharge instructions were prepared by provider Tien Serrano. Patient Instructions Signature Page Dariela Dan Patient (or Guardian) Signature/Date: I have read and understand the instructions given to me by my caregivers. Caregiver/RN/Doctor Signature/Date: The above-named patient and/or guardian has received patient instructions on this date. + Original Patient Signature Page (only) stays with chart. Please make copy for patient.
--- NOTE | 2017-07-19 10:55 | GI REPORT ---
Procedure Date: 07/19/2017 9:48 AM Procedure: Upper GI endoscopy Indications: Suspected esophageal reflux Medicines: Monitored Anesthesia Care Complications: No immediate complications. Estimated Blood Loss: Estimated blood loss: none. Procedure: Pre-Anesthesia Assessment: - Prior to the procedure, a History and Physical was performed, and patient medications and allergies were reviewed. The patient's tolerance of previous anesthesia was also reviewed. The risks and benefits of the procedure and the sedation options and risks were discussed with the patient. All questions were answered, and informed consent was obtained. Prior Anticoagulants: The patient has taken aspirin, last dose was 1 day prior to procedure. ASA Grade Assessment: II - A patient with mild systemic disease. After reviewing the risks and benefits, the patient was deemed in satisfactory condition to undergo the procedure. After obtaining informed consent, the endoscope was passed under direct vision. Throughout the procedure, the patient's blood pressure, pulse, and oxygen saturations were monitored continuously. The scope was introduced through the mouth, and advanced to the second part of duodenum. The upper GI endoscopy was accomplished without difficulty. The patient tolerated the procedure well. Findings: The esophagus was normal. Localized mild inflammation characterized by erythema was found in the gastric antrum. Biopsies were taken with a cold forceps for histology. The examined duodenum was normal. Impression: - Normal esophagus. - Gastritis. Biopsied. - Normal examined duodenum. Recommendation: - Resume previous diet. - Continue present medications. - Await pathology results. - Return to primary care physician as previously scheduled. Tien Serrano DO 07/19/2017 10:55:13 AM This report has been signed electronically. Note Initiated On: 07/19/2017 9:48 AM I attest to the content of the Intraoperative Record and orders documented therein, exceptions below
[2017-07-19 11:24] VITALS: BP 117/66; PULSE 59; O2SAT 97
--- NOTE | 2017-07-19 11:33 | Anesthesiology Progress Note ---
Anesthesia Post Op Note Date & Time Jul 19, 2017 at 11:33 Vital Signs Pain Intensity: 0 Vital Signs Past 12 Hours Date Time Temp Pulse Resp B/P (MAP) Pulse Ox O2 Delivery O2 Flow Rate FiO2 07/19/17 11:24 59 20 117/66 (83) 97 Room Air 07/19/17 11:09 53 20 103/69 (80) 95 Room Air 07/19/17 10:54 64 20 111/63 (79) 98 Room Air 07/19/17 09:52 36.5 50 20 124/50 (74) 98 Room Air Notes Mental Status: alert / awake / arousable, participated in evaluation Pt Amnestic to Procedure: Yes Nausea / Vomiting: adequately controlled Pain: adequately controlled Airway Patency, RR, SpO2: stable & adequate BP & HR: stable & adequate Hydration State: stable & adequate Anesthetic Complications: no major complications apparent
== END | disposition home or self-care (01) ==
LOC: C.GI 09:11
PROVIDERS: ATTEND Internal Medicine
DX: K21.9 Gastro-esophageal reflux disease without esophagitis (principal); K29.50 Unspecified chronic gastritis without bleeding; F32.9 Major depressive disorder, single episode, unspecified; F41.9 Anxiety disorder, unspecified; J45.909 Unspecified asthma, uncomplicated; Z98.890 Other specified postprocedural states; Z87.891 Personal history of nicotine dependence; Z90.710 Acquired absence of both cervix and uterus; Z88.1 Allergy status to other antibiotic agents; Z91.040 Latex allergy status; Z79.82 Long term (current) use of aspirin; Z68.38 Body mass index [BMI] 38.0-38.9, adult

== ENCOUNTER → 2017-07-26 | Outpatient (CLI) | payer BC ==
[~2017-07-26] MED LIST changes: -LIDOCAINE HCL 2% 2 ML VIAL (20MG/ML) ONE; -MIDAZOLAM HCL 1 MG/ML 2ML VIAL ONE; -PROPOFOL IV EMULSION 10 MG/ML 20 ML VIAL IV ONE
== END | disposition home or self-care (01) ==
LOC: C.LAB1850 16:03
PROVIDERS: ATTEND Physician Assistant Medical
DX: J02.9 Acute pharyngitis, unspecified (principal)

== ENCOUNTER 2017-09-30 07:57 | Day surgery (SDC) | payer BC ==
[2017-09-22 15:07] VITALS: BMI 38.0
--- NOTE | 2017-09-22 15:25 | PAT Medication Instructions ---
Service Date Sep 22, 2017. Current Home Medication List Acyclovir (Acyclovir), 1 TAB PO QAM Albuterol Hfa (Ventolin Hfa), 1-2 PUFFS INH Q6H PRN for PRN Albuterol Sulf (Proventil 0.083% 2.5MG/3ML), 2.5 MG INH QID PRN for PRN Alprazolam (Xanax), 0.5 MG PO QAM Aspirin (Aspirin Ec), 81 MG PO Q2D Calcium Carbonate-Vitamin D (Calcium + D), 600 MG PO QAM Cetirizine Hcl (Zyrtec), 10 MG PO QAM Diclofenac Sodium (Topical) (Voltaren 1% Top Gel), 1 DOSE TOP UD PRN for Pain Fluticasone Furoate-Vilanterol (Breo Ellipta 200-25 Mcg/INH), 1 DOSE INH PRN Montelukast Sodium (Singulair), 10 MG PO HS Multivitamin (Multivitamin), 1 TAB PO QAM Omeprazole (Prilosec), 40 MG PO QAM Oxybutynin Chloride (Ditropan), 5 MG PO QAM Polyethylene Glycol 3350 (Miralax), 17 GM PO Q2D PRN for Constipation Probiotic Product (Probiotic), 1 TAB PO QAM Ranitidine HCl (Ranitidine [address]), 150 MG PO HS Triamterene/Hctz (Triamterene/Hctz 37.5-25MG), 1 TAB PO QAM Vitamin E (Vitamin E 400 Iu), 400 INTER.UNIT PO QAM Medication Instructions For Your Scheduled Surgery - Check with surgeon and prescribing physician for instructions: Aspirin (Aspirin Ec), 81 MG PO Q2D - Hold the following medications starting 09/23/17: Vitamin E (Vitamin E 400 Iu), 400 INTER.UNIT PO QAM - Hold the following medications 24 hours prior to surgery: Diclofenac Sodium (Topical) (Voltaren 1% Top Gel), 1 DOSE TOP UD PRN for Pain - Hold the following medications the morning of surgery: Triamterene/Hctz (Triamterene/Hctz 37.5-25MG), 1 TAB PO QAM Polyethylene Glycol 3350 (Miralax), 17 GM PO Q2D PRN for Constipation Probiotic Product (Probiotic), 1 TAB PO QAM Multivitamin (Multivitamin), 1 TAB PO QAM Calcium Carbonate-Vitamin D (Calcium + D), 600 MG PO QAM Cetirizine Hcl (Zyrtec), 10 MG PO QAM Oxybutynin Chloride (Ditropan), 5 MG PO QAM - Take the following medications the morning of surgery with a sip of water: Acyclovir (Acyclovir), 1 TAB PO QAM Albuterol Hfa (Ventolin Hfa), 1-2 PUFFS INH Q6H PRN for PRN (if needed) Albuterol Sulf (Proventil 0.083% 2.5MG/3ML), 2.5 MG INH QID PRN for PRN (if needed) Alprazolam (Xanax), 0.5 MG PO QAM Fluticasone Furoate-Vilanterol (Breo Ellipta 200-25 Mcg/INH), 1 DOSE INH PRN ( if needed) Omeprazole (Prilosec), 40 MG PO QAM If you have any questions please call us at [phone] or [phone] or [phone]
[2017-09-22 16:46] LABS: BASO % 0.2 %; BASO ABS # 0.01 K/uL (0-0.2); COMPLETE YES; EOS % 1.6 %; HEMATOCRIT 39.7 % (37-47); IG% 0.8 %; LYMPH % 37.5 %; LYMPH ABS # 2.35 K/uL (1.2-3.4); MEAN CELL VOLUME 93.4 fL (80-100); MEAN CORPUSCULAR HEMOGLOBIN 29.9 pg (25-34); MEAN PLATELET VOLUME 11.4 fL (7.4-10.4); MONO % 9.9 %; PLATELET COUNT 188 K/uL (130-400); RED BLOOD COUNT 4.25 M/uL (4.2-5.4); WHITE BLOOD COUNT 6.26 K/uL (4.8-10.8)
[2017-09-22 16:53] LABS: ALT/SGPT 21 U/L (12-78); BLOOD UREA NITROGEN 16 mg/dl (7-18); CALCIUM 8.9 mg/dl (8.5-10.1); CARBON DIOXIDE 30 mmol/L (21-32); CHLORIDE 104 mmol/L (98-107); CREATININE 1.06 mg/dl (0.60-1.20); GLUCOSE 101 mg/dl (70-99); POTASSIUM 3.6 mmol/L (3.5-5.1); SODIUM 140 mmol/L (136-145)
[2017-09-22 16:56] LABS: ALB/GLOB RATIO 1.1 (0.9-2); ALKALINE PHOSPHATASE 108 U/L (45-117); AST/SGOT 13 U/L (15-37)
[~2017-09-30] VITALS: Ht 165.1 cm; Wt 104.2 kg
[~2017-09-30 07:57] MED LIST changes: +CEFOXITIN IV 2,000 MG in DEXTROSE 5% 50ML 50 ML IV SCH; +CEFOXITIN IV 2,000 MG in SYRINGE 11 ML IV SCH; +CLINDAMYCIN IV 900 MG in DEXTROSE 5% 50ML IV SCH; +DICL1GEL12 TOP; +DTR/5 PO; +LACTATED RINGER'S 1000ML 1,000 ML IV SCH; -OXYB5TAB74 PO; -VOLTAREN GEL TOP
[2017-09-30 08:24] VITALS: BP 110/51; PULSE 63; TEMP 36.8; O2SAT 93; Ht 165.1 cm; Wt 104.2 kg
[2017-09-30] MEDS ORDERED: FENTANYL CITRATE INJ 50 MCG/1 ML 2 ML VIAL ONE (09:01)
[2017-09-30] MEDS ORDERED: MIDAZOLAM HCL 1 MG/ML 2ML VIAL ONE (09:02)
[2017-09-30] MEDS ORDERED: BUPIVACAINE 0.5 % 5 MG/1 ML MPF 30ML VIAL ONE (09:55)
[2017-09-30] MEDS ORDERED: EpHEDrine SULFATE INJ 50 MG/ML AMP IV PRN (10:00)
[2017-09-30] MEDS ORDERED: PROMETHAZINE HCL INJ 12.5 MG in SODIUM CHLORIDE 0.9% 50ML 50 ML IV PRN (10:00)
[2017-09-30] MEDS ORDERED: ONDANSETRON INJ 2 MG/ML 2 ML VIAL IV PRN ×2 (10:00→11:30)
[2017-09-30] MEDS ORDERED: ATROPINE SULFATE 0.1 MG/ML 5ML SYR IV PRN (10:00)
[2017-09-30] MEDS ORDERED: HYDROmorphone INJ 1 MG/ML SYR IV PRN (10:00)
[2017-09-30] MEDS ORDERED: DEXAMETHASONE SOD INJ 4 MG/ML VIAL ONE (10:37)
[2017-09-30] MEDS ORDERED: ROCURONIUM BROMIDE 10 MG/ML 5 ML VIAL IV ONE (10:37)
[2017-09-30] MEDS ORDERED: PROPOFOL IV EMULSION 10 MG/ML 20 ML VIAL IV ONE (10:37)
[2017-09-30] MEDS ORDERED: NEOSTIGMINE METHYLSULFATE 5 MG/5 ML SYR ONE (10:37)
[2017-09-30] MEDS ORDERED: KETOROLAC TROMETHAMINE 30 MG/ML VIAL ONE (10:37)
[2017-09-30] MEDS ORDERED: EpHEDrine SULFATE 50MG/5ML SYR ONE (10:37)
[2017-09-30] MEDS ORDERED: ONDANSETRON INJ 2 MG/ML 2 ML VIAL ONE (10:37)
[2017-09-30] MEDS ORDERED: LARYING-O-JET KIT (LTA) ONE ×2 (10:37)
[2017-09-30] MEDS ORDERED: LIDOCAINE HCL 2% 2 ML VIAL (20MG/ML) ONE (10:37)
[2017-09-30] MEDS ORDERED: GLYCOPYRROLATE INJ 0.2 MG/ML VIAL ONE (10:37)
--- NOTE | 2017-09-30 11:05 | [facility] Operative Report ---
Operative Report Operative Date Sep 30, 2017. Pre-Operative Diagnosis Biliary Dyskinesia Post-Operative Diagnosis biliary dyskinesia Procedure(s) Performed Laparoscopic cholecystectomy Surgeon Dr. Aleksandar Ziegler [employer] Surgeon(s) Libia Cuevas PA-C Estimated Blood Loss 3ML Findings Window of safety obtained, cystic duct and artery doubly clipped and divided. Specimens Permanent Specimen: A. Gallbladder and Contents Drains None Anesthesia GETA Complication(s) None Disposition Recovery Room / PACU Indications 57-year-old female with biliary dyskinesia, plan for laparoscopic cholecystectomy with possible cholangiogram. The risks of the procedure were discussed, all questions were answered, and the patient agreed to proceed with surgery as planned. Description of Procedure The patient was properly identified, consented, and taken to the operating room where she was placed in the supine position. General endotracheal anesthesia was induced. SCDs and a safety belt were placed. Preoperative antibiotics were administered. The patient's abdomen was prepped and draped in the standard sterile fashion. A surgical timeout was performed and all parties were in agreement that this was the correct patient and procedure to be performed and we continued as planned. An incision was made superior and to the left of the umbilicus overlying the rectus muscle and the Veress needle was inserted. Saline drop test confirmed entry into the peritoneum. The abdomen was insufflated with carbon dioxide which the patient tolerated without incident. The abdomen was then entered using the Optiview technique and a 5 mm trocar. The laparoscope was inserted and no damage from initial trocar or Veress needle placement was noted, no gross abnormalities were noted within the 4 quadrants of the abdomen. An 11 mm port was placed in the subxiphoid position and two 5 mm ports were then placed in the right subcostal position. The patient was placed in reverse Trendelenburg position and rotated towards the left. The dome of the gallbladder was retracted towards the left upper quadrant and the infundibulum was retracted toward the right lower quadrant revealing Calot' s triangle. Peritoneal attachments were taken down with electrocautery and blunt dissection. The cystic duct and artery were circumferentially dissected. A window of safety was obtained showing the cystic duct entering the gallbladder with no aberrant structures noted. The cystic duct and artery were doubly clipped and divided. The gallbladder was then lifted off the gallbladder fossa with electrocautery. The gallbladder was placed in an Endo Catch bag and removed through the umbilical port site. The right upper quadrant was irrigated and hemostasis was found to be good. 5 mm trochars were removed under direct visualization and the abdomen was allowed to collapse. The subxiphoid port site fascia was closed with 0 Vicryl suture using a suture passer. The wound was irrigated, and the skin of all ports was closed with 4-0 Monocryl subcuticular sutures. Dermabond was placed over the wounds. The physician's cook's assistant was essential and entry into the abdomen, retraction, exposure, removal of the gallbladder, and closure. The patient was extubated in the operating room and taken to the PACU where she recovered without apparent incident. All sponge, instrument and needle counts were correct at the conclusion of the procedure. The patient tolerated the procedure well. I attest to the content of the Intraoperative Record and any orders documented therein. Any exceptions are noted below.
[2017-09-30] MEDS ORDERED: SODIUM CHLORIDE 0.9% 1000ML 1,000 ML IV SCH (11:18)
[2017-09-30] MEDS: FENTANYL CITRATE INJ 50 MCG/1 ML 2 ML VIAL IV PRN ×2 (11:24→11:29)
[2017-09-30] MEDS ORDERED: OXYC-57 PO (11:24)
--- NOTE | 2017-09-30 11:26 | Discharge Instructions ---
Discharge Instructions Date of Service Sep 30, 2017. Admission Reason for Admission: Biliary Dyskinesia Discharge Discharge Diagnosis / Problem: Biliary Dyskinesia Discharge Goals Goal(s): Decrease discomfort, Improve function Activity Recommendations Activity Limitations: as noted below Lifting Limitations: no more than 10 pounds Exercise/Sports Limitations: until after follow-up appointment May Resume Sexual Activity: after follow-up appointment Shower/Bathe: tomorrow Driving or Machine Use: resume 1 day after discharge . Instructions / Follow-Up Instructions / Follow-Up Please follow-up with Dr. Ziegler in the office in 1-2 weeks. Please call the office at [phone] to make an appointment if you do not have one already. Please call the office with any questions or concerns. Current Hospital Diet Patient's current hospital diet: Discharge Diet Recommended Diet: Regular Diet Procedures Procedures Performed: Laparoscopic Cholecystectomy Pending Studies Studies pending at discharge: yes List of pending studies: Pathology report. Medical Emergencies . Who to Call and When: Medical Emergencies: If at any time you feel your situation is an emergency, please call 911 immediately. . Non-Emergent Contact Non-Emergency issues call your: Primary Care Provider, Surgeon Call Non-Emergent contact if: temperature is above 101.5, your pain is not controlled, wound has increased drainage, wound has increased redness . "Provider Documentation" section prepared by Libia Cuevas. . VTE Core Measure Inpt VTE Proph given/why not?: SCD's [place] Drug Monitoring Program Search Results: patient reviewed within database, no issues identified
[2017-09-30] MEDS ORDERED: OXYCODONE/ACETAMINOPHEN 5-325 TAB PO PRN ×2 (11:30)
--- NOTE | 2017-09-30 12:17 | Anesthesiology Progress Note ---
Anesthesia Post Op Note Date & Time Sep 30, 2017 at 12:17 Vital Signs Pain Intensity: 4 Vital Signs Past 12 Hours Date Time Temp Pulse Resp B/P (MAP) Pulse Ox O2 Delivery O2 Flow Rate FiO2 09/30/17 12:00 36.2 61 19 111/64 92 Room Air 09/30/17 11:50 51 14 112/59 100 Oxymask 10 09/30/17 11:40 56 10 115/65 100 Oxymask 10 09/30/17 11:30 71 12 92/70 100 Oxymask 10 09/30/17 11:20 36.3 84 14 122/72 99 Oxymask 10 09/30/17 08:24 36.8 63 18 110/51 (70) 93 Room Air Notes Mental Status: alert / awake / arousable, participated in evaluation Pt Amnestic to Procedure: Yes Nausea / Vomiting: adequately controlled Pain: adequately controlled Airway Patency, RR, SpO2: stable & adequate BP & HR: stable & adequate Hydration State: stable & adequate Anesthetic Complications: no major complications apparent
[2017-09-30 12:22] VITALS: BP 122/67; PULSE 65; TEMP 37.2; O2SAT 94
[2017-09-30 12:50] VITALS: BP 115/57; PULSE 50; O2SAT 99
[2017-09-30 13:20] VITALS: BP 119/73; PULSE 77; O2SAT 98
[2017-09-30 14:33] VITALS: BP 109/61; PULSE 71; TEMP 36.8; O2SAT 93
== END 2017-09-30 15:00 | disposition home or self-care (01) ==
LOC: C.ACU 07:57
PROVIDERS: ATTEND Surgery
DX: K81.1 Chronic cholecystitis (principal); J45.909 Unspecified asthma, uncomplicated; E66.9 Obesity, unspecified; K29.70 Gastritis, unspecified, without bleeding; K21.9 Gastro-esophageal reflux disease without esophagitis; Z90.710 Acquired absence of both cervix and uterus; Z79.82 Long term (current) use of aspirin

== ENCOUNTER → 2017-10-08 | Outpatient (CLI) | payer BC ==
[~2017-10-08] MED LIST changes: -CEFOXITIN IV 2,000 MG in DEXTROSE 5% 50ML 50 ML IV SCH; -CEFOXITIN IV 2,000 MG in SYRINGE 11 ML IV SCH; -CLINDAMYCIN IV 900 MG in DEXTROSE 5% 50ML IV SCH; -LACTATED RINGER'S 1000ML 1,000 ML IV SCH
== END | disposition home or self-care (01) ==
LOC: C.LAB1850 13:51
PROVIDERS: ATTEND Internal Medicine Pulmonary Disease
DX: Z22.322 Carrier or suspected carrier of Methicillin resistant Staphylococcus aureus (principal)

== ENCOUNTER 2018-02-02 17:59 | Emergency (ER) | payer BC ==
[2018-02-02 18:16] VITALS: TEMP 36.7; Ht 165.1 cm
--- NOTE | 2018-02-02 19:37 | EMERGENCY ROOM VISIT NOTE ---
History First contact with patient: 19:36 Chief Complaint: DIZZY Stated Complaint: DIZZY,LIGHTHEADED Nursing Triage Summary: pt reports she went for mamogram became pale and dizzy. for past 1.5 month has been having sx History of Present Illness The patient is a 58 year old female who presents to the Emergency Room with complaints of dizziness and fatigue. She notes that over the past month she has been suffering from general fatigue and episodes of dizziness. She notes the episodes of dizziness will occur typically when she wakes up and will be short lived. She has also had an episode of two in the shower. She notes that when she was at her mammogram appointment today she started to develop the dizziness and then apparently got very pale. The aide stopped the exam and sat the patient down and gave her water. Their recommendation was that she was to go to the ED for evaluation however she deferred for a few hours. She currently denies any sensation of dizziness and only fatigue. She also notes that over the past year she will get bilat arm tingling R>L occasionally however " I tell doctors but no body believes me." She does not currently have this symptom nor did this symptom occur with the episode of dizziness. With regards to a ROS she notes that approx 6 months prior she used to suffer from bloating and non radiating epigastric pain. In general, this pain completely resolved after her cholecystectomy this past September. Over the past month she feels the bloating has returned along with epigastric pain. The last episode of epigastric pain is currently, it is a 3/10, non radiating pain and non alleviating/ aggravating factors. She also notes a right calf pain with walking however can not Past Medical/Surgical History Medical Problems: (1) Asthma (2) Mitral valve prolapse (3) Sinusitis Family History Heart disease Lung disease Social History Smoking Status: Never Smoker Alcohol Use: occasionally Drug Use: none Marital Status: single Housing Status: lives alone Occupation Status: employed Current/Historical Medications Scheduled Acyclovir (Acyclovir), 1 TAB PO QAM Alprazolam (Xanax), 0.5 MG PO QAM Aspirin (Aspirin Ec), 81 MG PO Q2D Calcium Carbonate-Vitamin D (Calcium + D), 600 MG PO QAM Cetirizine Hcl (Zyrtec), 10 MG PO QAM Fluticasone Furoate-Vilanterol (Breo Ellipta 200-25 Mcg/INH), 1 DOSE INH PRN Montelukast Sodium (Singulair), 10 MG PO HS Multivitamin (Multivitamin), 1 TAB PO QAM Omeprazole (Prilosec), 40 MG PO QAM Oxybutynin Chloride (Ditropan), 5 MG PO QAM Probiotic Product (Probiotic), 1 TAB PO QAM Ranitidine HCl (Ranitidine [address]), 150 MG PO HS Triamterene/Hctz (Triamterene/Hctz 37.5-25MG), 1 TAB PO QAM Vitamin E (Vitamin E 400 Iu), 400 INTER.UNIT PO QAM Scheduled PRN Albuterol Hfa (Ventolin Hfa), 1-2 PUFFS INH Q6H PRN for PRN Albuterol Sulf (Proventil 0.083% 2.5MG/3ML), 2.5 MG INH QID PRN for PRN Diclofenac Sodium (Topical) (Voltaren 1% Top Gel), 1 DOSE TOP UD PRN for Pain Polyethylene Glycol 3350 (Miralax), 17 GM PO Q2D PRN for Constipation Physical Exam Vital Signs Date Time Temp Pulse Resp B/P (MAP) Pulse Ox O2 Delivery O2 Flow Rate FiO2 02/02/18 20:30 61 16 115/67 97 Room Air 02/02/18 20:16 56 02/02/18 18:16 36.7 65 18 133/76 95 Room Air Medical Decision & Procedures Laboratory Results 02/02/18 19:47 Red Blood Count 4.19, Mean Corpuscular Volume 93.6, Mean Corpuscular Hemoglobin 31.5, Mean Corpuscular Hemoglobin Concent 33.7, Mean Platelet Volume 11.3, Neutrophils (%) (Auto) 53.7, Lymphocytes (%) (Auto) 36.1, Monocytes (%) (Auto) 7.4, Eosinophils (%) (Auto) 2.0, Basophils (%) (Auto) 0.1, Neutrophils # (Auto) 3.75, Lymphocytes # (Auto) 2.52, Monocytes # (Auto) 0.52, Eosinophils # (Auto) 0.14, Basophils # (Auto) 0.01 02/02/18 19:47 Test 02/02/18 19:47 White Blood Count 6.99 K/uL (4.8-10.8) Red Blood Count 4.19 M/uL (4.2-5.4) Hemoglobin 13.2 g/dL (12.0-16.0) Hematocrit 39.2 % (37-47) Mean Corpuscular Volume 93.6 fL (80-100) Mean Corpuscular Hemoglobin 31.5 pg (25-34) Mean Corpuscular Hemoglobin Concent 33.7 g/dl (32-36) Platelet Count 207 K/uL (130-400) Mean Platelet Volume 11.3 fL (7.4-10.4) Neutrophils (%) (Auto) 53.7 % Lymphocytes (%) (Auto) 36.1 % Monocytes (%) (Auto) 7.4 % Eosinophils (%) (Auto) 2.0 % Basophils (%) (Auto) 0.1 % Neutrophils # (Auto) 3.75 K/uL (1.4-6.5) Lymphocytes # (Auto) 2.52 K/uL (1.2-3.4) Monocytes # (Auto) 0.52 K/uL (0.11-0.59) Eosinophils # (Auto) 0.14 K/uL (0-0.5) Basophils # (Auto) 0.01 K/uL (0-0.2) RDW Standard Deviation 49.0 fL (36.4-46.3) RDW Coefficient of Variation 14.5 % (11.5-14.5) Immature Granulocyte % (Auto) 0.7 % Immature Granulocyte # (Auto) 0.05 K/uL (0.00-0.02) D-Dimer 290 ug/L FEU (0-500) Anion Gap 7.0 mmol/L (3-11) Estimated GFR () 60.7 Estimated GFR (Non- 52.4 BUN/Creatinine Ratio 15.4 (10-20) Calcium Level 9.4 mg/dl (8.5-10.1) Aspartate Amino Transf (AST/SGOT) 17 U/L (15-37) Alanine Aminotransferase (ALT/SGPT) 25 U/L (12-78) Albumin 4.0 gm/dl (3.4-5.0) Departure Information Referrals Vinayak Wood M.D. (PCP) Patient Instructions My [facility]
[2018-02-02 20:19] LABS: BASO % 0.1 %; BASO ABS # 0.01 K/uL (0-0.2); EOS ABS # 0.14 K/uL (0-0.5); HEMATOCRIT 39.2 % (37-47); HEMOGLOBIN 13.2 g/dL (12.0-16.0); IG# 0.05 K/uL (0.00-0.02); LYMPH % 36.1 %; LYMPH ABS # 2.52 K/uL (1.2-3.4); MEAN CELL VOLUME 93.6 fL (80-100); MEAN CORPUSCULAR HEMOGLOBIN 31.5 pg (25-34); MEAN CORPUSCULAR HGB CONC 33.7 g/dl (32-36); MEAN PLATELET VOLUME 11.3 fL (7.4-10.4); MONO % 7.4 %; MONO ABS # 0.52 K/uL (0.11-0.59); NEUT % 53.7 %; NEUT ABS # 3.75 K/uL (1.4-6.5); PLATELET COUNT 207 K/uL (130-400); RED CELL DISTRIBUTION WIDTH CV 14.5 % (11.5-14.5); WHITE BLOOD COUNT 6.99 K/uL (4.8-10.8)
[2018-02-02 20:24] LABS: CALCIUM 9.4 mg/dl (8.5-10.1); CARBON DIOXIDE 29 mmol/L (21-32); POTASSIUM 3.4 mmol/L (3.5-5.1); SODIUM 140 mmol/L (136-145)
[2018-02-02 20:28] LABS: ALT/SGPT 25 U/L (12-78); AST/SGOT 17 U/L (15-37); BLOOD UREA NITROGEN 18 mg/dl (7-18); CREATININE 1.15 mg/dl (0.60-1.20); GLUCOSE 108 mg/dl (70-99)
[2018-02-02 20:41] LABS: ALKALINE PHOSPHATASE 124 U/L (45-117); TOTAL PROTEIN 7.5 gm/dl (6.4-8.2)
--- NOTE | 2018-02-02 21:01 | DIAGNOSTIC IMAGING REPORT ---
HEAD WITHOUT CONTRAST (CT) CLINICAL HISTORY: 58 years-old Female presenting with presyncope. TECHNIQUE: Multidetector CT imaging of the head was performed without the use of intravenous contrast. IV contrast: None. A dose lowering technique was used consistent with the principles of ALARA (as low as reasonably achievable). COMPARISON: 06/26/2011. CT DOSE (mGy.cm): The estimated cumulative dose is 700.35 mGycm. FINDINGS: Doll Wig Maker topogram: Unremarkable. Ventricles and sulci normal in size. Brain parenchyma normal in appearance with preserved marks-white differentiation. No mass effect or midline shift. No hemorrhage or acute territorial infarct. No extra-axial fluid collection. Minimal mucosal thickening in the frontal sinuses. Calvarium intact. IMPRESSION: 1. No acute intracranial abnormality. Electronically signed by: Efra Stahl M.D. 02/02/2018 9:00 PM Dictated Date/Time: 02/02/2018 8:58 PM
--- NOTE | 2018-02-02 21:41 | DIAGNOSTIC IMAGING REPORT ---
ABDOMEN 2VIEW W/PA CHEST RTN CLINICAL HISTORY: 58 years-old Female presenting with ABDOMEN PAIN. TECHNIQUE: PA view of the chest and supine and upright views of the abdomen were obtained. COMPARISON: Chest x-ray from 03/26/2017. FINDINGS: Atherosclerosis of the aortic arch. Cardiac silhouette normal in size. Bandlike opacity at the left lung base. No other focal opacity. No large effusion or pneumothorax. Cholecystectomy clips noted. Moderate stool burden throughout the colon. Nonobstructive bowel gas pattern. No gross pneumoperitoneum allowing for supine technique. Allowing for bowel gas and stool, no calcifications to suggest nephrolithiasis. Degenerative changes of the spine. IMPRESSION: 1. Minimal left basilar atelectasis or scarring. No convincing evidence of acute cardiopulmonary disease. 2. Moderate stool burden could suggest constipation. 3. No gross free air or bowel obstruction. Electronically signed by: Efra Stahl M.D. 02/02/2018 9:40 PM Dictated Date/Time: 02/02/2018 9:39 PM
[2018-02-02 22:29] VITALS: BP 102/64; PULSE 62; O2SAT 96
--- NOTE | 2018-02-03 00:31 | EMERGENCY ROOM VISIT NOTE ---
History Report prepared by Christiano: Caitlin Reed Under the Supervision of: Dr. Merlin Dos Santos D.O. First contact with patient: 19:36 Chief Complaint: DIZZY Stated Complaint: DIZZY,LIGHTHEADED Nursing Triage Summary: pt reports she went for mamogram became pale and dizzy. for past 1.5 month has been having sx History of Present Illness The patient is a 58 year old female who presents to the Emergency Room with complaints of intermittent dizziness starting 1 month ago. She experiences the dizziness in the morning when she is in the shower. She also experienced it today during her mammogram. The dizziness does not change with getting up, bending over, or moving of her head. She does not identify anything that improves or worsens her dizziness. She has been fatigued. She is having some abdominal pain which feels like the pain she had prior to her cholecystectomy. Her abdomen has been getting bigger. She has had intermittent tingling in her hands for the past year. She denies any weakness in her arms or legs. She denies any cough, rhinorrhea, chest pain, or vomiting. She had a small bowel movement today. Source of History: patient Onset: 1 month ago Position: head Quality: other (dizziness) Timing: intermittent Associated Symptoms: + abdominal pain, + fatigue, No cough, No chest pain, No vomiting, No weakness Review of Systems See HPI for pertinent positives & negatives. A total of 10 systems reviewed and were otherwise negative. Past Medical & Surgical Medical Problems: (1) Asthma (2) Mitral valve prolapse (3) Sinusitis Family History Heart disease Lung disease Social History Smoking Status: Never Smoker Alcohol Use: occasionally Drug Use: none Marital Status: single Housing Status: lives alone Occupation Status: employed Current/Historical Medications Scheduled Acyclovir (Acyclovir), 1 TAB PO QAM Alprazolam (Xanax), 0.5 MG PO QAM Aspirin (Aspirin Ec), 81 MG PO Q2D Calcium Carbonate-Vitamin D (Calcium + D), 600 MG PO QAM Cetirizine Hcl (Zyrtec), 10 MG PO QAM Fluticasone Furoate-Vilanterol (Breo Ellipta 200-25 Mcg/INH), 1 DOSE INH PRN Montelukast Sodium (Singulair), 10 MG PO HS Multivitamin (Multivitamin), 1 TAB PO QAM Omeprazole (Prilosec), 40 MG PO QAM Oxybutynin Chloride (Ditropan), 5 MG PO QAM Probiotic Product (Probiotic), 1 TAB PO QAM Ranitidine HCl (Ranitidine [address]), 150 MG PO HS Triamterene/Hctz (Triamterene/Hctz 37.5-25MG), 1 TAB PO QAM Vitamin E (Vitamin E 400 Iu), 400 INTER.UNIT PO QAM Scheduled PRN Albuterol Hfa (Ventolin Hfa), 1-2 PUFFS INH Q6H PRN for PRN Albuterol Sulf (Proventil 0.083% 2.5MG/3ML), 2.5 MG INH QID PRN for PRN Diclofenac Sodium (Topical) (Voltaren 1% Top Gel), 1 DOSE TOP UD PRN for Pain Polyethylene Glycol 3350 (Miralax), 17 GM PO Q2D PRN for Constipation Allergies Coded Allergies: Amitriptyline (Verified Allergy, Unknown, VERY TIRED, 09/22/17) Bupropion (Verified Allergy, Unknown, "FELT PSYCHO", 09/22/17) Latex1 -Allergic Contact Dermititis (Verified Allergy, Unknown, HIVES, 09/22/17) Magnesium Salicylate (Verified Allergy, Unknown, "ALLERGIC TO MSG ON SALADS", 09/22/17) Meloxicam (Verified Allergy, Unknown, "NUMBNESS IN ARMS" AND VIOLENT GOLD/ MIGRAINES, 09/22/17) Silver (Verified Allergy, Unknown, SKIN BREAKOUT, 09/22/17) Citalopram (Verified Adverse Reaction, Unknown, WEIGHT GAIN, SIGNIFICANT, 09/27/17) Doxycycline (Verified Adverse Reaction, Unknown, SEVERE NAUSEA, GI UPSET, 09/27/17) Escitalopram (Verified Adverse Reaction, Unknown, WEIGHT GAIN, "FELT WORSE ", 09/27/17) Fluoxetine (Verified Adverse Reaction, Unknown, SIGNIFICANT WEIGHT GAIN 60 LBS, 09/27/17) Gabapentin (Verified Adverse Reaction, Unknown, EXCESSIVE FATIGUE, FELT LIKE A "ZOMBIE", 09/27/17) Sertraline (Verified Adverse Reaction, Unknown, WEIGHT GAIN, FELT WORSE, 09/27/17) Physical Exam Vital Signs Date Time Temp Pulse Resp B/P (MAP) Pulse Ox O2 Delivery O2 Flow Rate FiO2 02/02/18 22:29 62 16 102/64 96 02/02/18 22:03 64 16 119/73 97 02/02/18 21:19 64 16 125/67 94 Room Air 02/02/18 20:30 61 16 115/67 97 Room Air 02/02/18 20:16 56 02/02/18 18:16 36.7 65 18 133/76 95 Room Air Physical Exam GENERAL: Sitting up in bed, alert, well appearing, well nourished, no distress, non-toxic EYE EXAM: normal conjunctiva. PERRL and EOM's intact. OROPHARYNX: no exudate, no erythema, lips, buccal mucosa, and tongue normal and mucous membranes are moist NECK: supple, no nuchal rigidity, no adenopathy, non-tender LUNGS: Clear to auscultation. Normal chest wall mechanics HEART: no murmurs, S1 normal and S2 normal ABDOMEN: abdomen soft, non-tender, normo-active bowel sounds, no masses, no rebound or guarding. BACK: Back is symmetrical on inspection and there is no deformity, no midline tenderness, no CVA tenderness. SKIN: no rashes and no bruising UPPER EXTREMITIES: upper extremities are grossly normal. LOWER EXTREMITIES: No pitting edema. NEURO EXAM: Normal sensorium, cranial nerves II-XII intact, normal speech, no weakness of arms, no weakness of legs. No drift. Finger to nose intact. Gross sensation intact. Medical Decision & Procedures ER Provider Diagnostic Interpretation: Radiology results as stated below per my review and the radiologist's interpretation: ABDOMEN 2VIEW W/PA CHEST RTN CLINICAL HISTORY: 58 years-old Female presenting with ABDOMEN PAIN. TECHNIQUE: PA view of the chest and supine and upright views of the abdomen were obtained. COMPARISON: Chest x-ray from 03/26/2017. FINDINGS: Atherosclerosis of the aortic arch. Cardiac silhouette normal in size. Bandlike opacity at the left lung base. No other focal opacity. No large effusion or pneumothorax. Cholecystectomy clips noted. Moderate stool burden throughout the colon. Nonobstructive bowel gas pattern. No gross pneumoperitoneum allowing for supine technique. Allowing for bowel gas and stool, no calcifications to suggest nephrolithiasis. Degenerative changes of the spine. IMPRESSION: 1. Minimal left basilar atelectasis or scarring. No convincing evidence of acute cardiopulmonary disease. 2. Moderate stool burden could suggest constipation. 3. No gross free air or bowel obstruction. Electronically signed by: Efra Stahl M.D. 02/02/2018 9:40 PM Dictated Date/Time: 02/02/2018 9:39 PM HEAD WITHOUT CONTRAST (CT) CLINICAL HISTORY: 58 years-old Female presenting with presyncope. TECHNIQUE: Multidetector CT imaging of the head was performed without the use of intravenous contrast. IV contrast: None. A dose lowering technique was used consistent with the principles of ALARA (as low as reasonably achievable). COMPARISON: 06/26/2011. CT DOSE (mGy.cm): The estimated cumulative dose is 700.35 mGycm. FINDINGS: Leaf Size Picker topogram: Unremarkable. Ventricles and sulci normal in size. Brain parenchyma normal in appearance with preserved marks-white differentiation. No mass effect or midline shift. No hemorrhage or acute territorial infarct. No extra-axial fluid collection. Minimal mucosal thickening in the frontal sinuses. Calvarium intact. IMPRESSION: 1. No acute intracranial abnormality. Electronically signed by: Efra Stahl M.D. 02/02/2018 9:00 PM Dictated Date/Time: 02/02/2018 8:58 PM Laboratory Results 02/02/18 19:47 Red Blood Count 4.19, Mean Corpuscular Volume 93.6, Mean Corpuscular Hemoglobin 31.5, Mean Corpuscular Hemoglobin Concent 33.7, Mean Platelet Volume 11.3, Neutrophils (%) (Auto) 53.7, Lymphocytes (%) (Auto) 36.1, Monocytes (%) (Auto) 7.4, Eosinophils (%) (Auto) 2.0, Basophils (%) (Auto) 0.1, Neutrophils # (Auto) 3.75, Lymphocytes # (Auto) 2.52, Monocytes # (Auto) 0.52, Eosinophils # (Auto) 0.14, Basophils # (Auto) 0.01 02/02/18 19:47 Test 02/02/18 19:47 02/02/18 21:10 White Blood Count 6.99 K/uL (4.8-10.8) Red Blood Count 4.19 M/uL (4.2-5.4) Hemoglobin 13.2 g/dL (12.0-16.0) Hematocrit 39.2 % (37-47) Mean Corpuscular Volume 93.6 fL (80-100) Mean Corpuscular Hemoglobin 31.5 pg (25-34) Mean Corpuscular Hemoglobin Concent 33.7 g/dl (32-36) Platelet Count 207 K/uL (130-400) Mean Platelet Volume 11.3 fL (7.4-10.4) Neutrophils (%) (Auto) 53.7 % Lymphocytes (%) (Auto) 36.1 % Monocytes (%) (Auto) 7.4 % Eosinophils (%) (Auto) 2.0 % Basophils (%) (Auto) 0.1 % Neutrophils # (Auto) 3.75 K/uL (1.4-6.5) Lymphocytes # (Auto) 2.52 K/uL (1.2-3.4) Monocytes # (Auto) 0.52 K/uL (0.11-0.59) Eosinophils # (Auto) 0.14 K/uL (0-0.5) Basophils # (Auto) 0.01 K/uL (0-0.2) RDW Standard Deviation 49.0 fL (36.4-46.3) RDW Coefficient of Variation 14.5 % (11.5-14.5) Immature Granulocyte % (Auto) 0.7 % Immature Granulocyte # (Auto) 0.05 K/uL (0.00-0.02) D-Dimer 290 ug/L FEU (0-500) Anion Gap 7.0 mmol/L (3-11) Estimated GFR () 60.7 Estimated GFR (Non- 52.4 BUN/Creatinine Ratio 15.4 (10-20) Calcium Level 9.4 mg/dl (8.5-10.1) Total Bilirubin 0.3 mg/dl (0.2-1) Aspartate Amino Transf (AST/SGOT) 17 U/L (15-37) Alanine Aminotransferase (ALT/SGPT) 25 U/L (12-78) Alkaline Phosphatase 124 U/L (45-117) Troponin I < 0.015 ng/ml (0-0.045) Total Protein 7.5 gm/dl (6.4-8.2) Albumin 4.0 gm/dl (3.4-5.0) Globulin 3.5 gm/dl (2.5-4.0) Albumin/Globulin Ratio 1.1 (0.9-2) Lipase 145 U/L (73-393) Thyroid Stimulating Hormone (TSH) 7.230 uIu/ml (0.300-4.500) Urine Color YELLOW Urine Appearance CLEAR (CLEAR) Urine pH 5.0 (4.5-7.5) Urine Specific [place] 1.025 (1.000-1.030) Urine Protein NEG (NEG) Urine Glucose (UA) NEG (NEG) Urine Ketones NEG (NEG) Urine Occult Blood NEG (NEG) Urine Nitrite NEG (NEG) Urine Bilirubin NEG (NEG) Urine Urobilinogen NEG (NEG) Urine Leukocyte Esterase NEG (NEG) Urine WBC (Auto) 1-5 /hpf (0-5) Urine RBC (Auto) 0-4 /hpf (0-4) Urine Hyaline Casts (Auto) 1-5 /lpf (0-5) Urine Epithelial Cells (Auto) 20-30 /lpf (0-5) Urine Bacteria (Auto) NEG (NEG) Laboratory results per my review. ECG Per My Interpretation Indication: weakness Rate (beats per minute): 51 Rhythm: sinus bradycardia Findings: no ectopy, other (normal axis) ED Course ED COURSE: Vital signs were reviewed and showed normal vitals. The patients medical record was reviewed The above diagnostic studies were performed and reviewed. ED treatments and interventions as stated above. 2020: The patient was evaluated in room C3. A complete history and physical examination was performed. 2157: I reevaluated the patient. She notes that she is urinating more frequently. 2239: Upon reevaluation, the patient is resting comfortably. I discussed my findings with the patient and she understands and agrees with the treatment plan. Based on the patients age, coexisting illnesses, exam and lab findings the decision to treat as an outpatient was made. The patient remained stable while under my care. The patient appeared well at the time of discharge. Medical Decision Differential diagnosis includes etiologies such as benign positional vertigo, dehydration, hypovolemia, anemia, tumor, infection, hypoglycemia, electrolyte abnormalities, cardiac sources, intracerebral event, toxicologic, neurologic, as well as others were entertained. Patient is a 58-year-old female who presents the ER for fatigue associated with intermittent dizziness with no true exacerbating or remitting factors. Patient is completely neurologically intact. CBC along with BMP, LFTs, bilirubin and troponin were unremarkable. TSH is elevated suggesting hypothyroidism. Patient was updated at bedside. CT head was negative. UA was negative. EKG was unremarkable. Patient was updated at bedside and discharged to follow-up with PCP is an outpatient. There is no signs of central cause of vertigo. Discussed with Pt concerning signs and symptoms to watch out for. Pt was instructed to follow up with their PCP and discussed with the patient their option to return to the ED at anytime for persistent or worsening symptoms. The appropriate anticipatory guidance and out-patient management, including indications for return to the emergency department, were explained at length to the patient and understood. Medication Reconcilliation Current Medication List: was personally reviewed by me Blood Pressure Screening Patient's blood pressure: Normal blood pressure Blood pressure disposition: Did not require urgent referral Impression Primary Impression: Dizziness Additional Impression: Hypothyroidism Scribe Attestation The scribe's documentation has been prepared under my direction and personally reviewed by me in its entirety. I confirm that the note above accurately reflects all work, treatment, procedures, and medical decision making performed by me. Departure Information Dispostion Home / Self-Care Forms HOME CARE DOCUMENTATION FORM, IMPORTANT VISIT INFORMATION Patient Instructions My [facility], ED Dizziness [facility] Additional Instructions Please follow up with your primary care doctor with in the next 24 hours. Any worsening of your symptoms, please return to the ED immediately. This includes any fevers greater than 100.4, worsening pain, chest pain, shortness breath, persistent nausea, vomiting, unable to eat or drink, weakness or numbness in her arms or legs, or any other concerning signs or symptoms from your standpoint. Please have your TSH followed up on by your primary care doctor as this is elevated likely suggestive that you have thyroid dysfunction. Problem Qualifiers Additional Impression: Hypothyroidism Hypothyroidism type: unspecified Qualified Codes: E03.9 - Hypothyroidism, unspecified
== END 2018-02-02 22:30 | disposition home or self-care (01) ==
LOC: C.EDB 18:00 → C.EDC 22:30
DX: R42 Dizziness and giddiness (principal); E03.9 Hypothyroidism, unspecified; J45.909 Unspecified asthma, uncomplicated; Z79.899 Other long term (current) drug therapy; Z88.8 Allergy status to other drugs, medicaments and biological substances; Z91.040 Latex allergy status; Z88.1 Allergy status to other antibiotic agents

== ENCOUNTER → 2018-02-09 | Outpatient (CLI) | payer BC ==
--- NOTE | 2018-02-09 16:01 | DIAGNOSTIC IMAGING REPORT ---
ULTRASOUND OF THE CAROTID ARTERIES CLINICAL HISTORY: LIGHTHEADED COMPARISON STUDY: None. TECHNIQUE: Real-time, grayscale, and color Doppler sonography of the carotid arteries was performed. Imaging reviewed in the transverse and longitudinal planes. NASCET criteria was utilized for stenosis calcification. FINDINGS: There is minimal atherosclerotic plaque present . The peak systolic velocity within the right internal carotid artery is 68 cm/sec. The systolic velocity ratio of right internal to common carotid artery is 0.9. The peak systolic velocity within the left internal carotid artery is 74 cm/sec. The systolic velocity ratio left internal to common carotid artery is 0.8. Antegrade flow is seen in the vertebral arteries. The external carotid arteries are patent. Blood pressure in the right arm measured 110 mm/Hg. Blood pressure in the left arm measured 109 mm/Hg. IMPRESSION: No evidence of hemodynamically significant carotid stenosis. Electronically signed by: Adan Smith M.D. 02/09/2018 3:59 PM Dictated Date/Time: 02/09/2018 3:59 PM
== END | disposition home or self-care (01) ==
LOC: C.ULTRBC 15:21
PROVIDERS: ATTEND Physician Assistant Medical
DX: R42 Dizziness and giddiness (principal)

== ENCOUNTER → 2018-02-14 | Outpatient (CLI) | payer BC ==
--- NOTE | 2018-02-14 14:12 | MAMMOGRAPHY REPORT ---
UNILATERAL RIGHT DIGITAL DIAGNOSTIC MAMMOGRAM TOMOSYNTHESIS AND TARGETED RIGHT ULTRASOUND: 02/14/2018 CLINICAL HISTORY: 58-year-old woman called back from screening mammography for a possible small area of architectural distortion in the right breast, along the posterior nipple line in the CC projection . The patient reports no prior right breast surgeries. TECHNIQUE: Spot compression right CC and MLO 2D and tomosynthesis images were obtained. COMPARISON: Comparison is made to exams dated: 02/02/2018 mammogram, 02/01/2017 mammogram, 01/30/2016 m ammogram, 01/28/2015 mammogram, 01/26/2014 mammogram, and 01/25/2013 mammogram - [facility]. BREAST COMPOSITION: There are scattered areas of fibroglandular density in the right breast. FINDINGS: The supplemental spot compression tomosynthesis views of the right breast demonstrate a pe rsistent small subtle area of architectural distortion in the slightly lateral posterior right breast near the fatglandular interface, best seen on CC tomosynthesis slice 2830/84, measuring 9 mm in tr ansverse dimension. No definite corresponding abnormality is seen on the spot compression MLO tomosy nthesis images of the right breast although this finding is thought to project inferiorly based on th e tomosynthesis localizer bar. Further evaluation with ultrasound was performed. Targeted ultrasound was performed in the right breast along the sagittal plane of the nipple and slig htly lateral to the nipple line. In the 12:00, retroareolar, 6:00, 11:00 and 7:00 axes, sonographica lly normal tissue is seen without a suspicious solid or cystic mass. No subtle area of distortion is appreciated in real-time scanning. Given the persistent nature of the subtle distortion in one plan we discussed options of tomosynthesis guided biopsy versus physiologic imaging with an MRI. We will opt to sample this area given the conspicuous nature in the CC projection for definitive characteriz ation. Differential considerations include radial scar and carcinoma. IMPRESSION: ACR BI-RADS CATEGORY 4: SUSPICIOUS, TARGETED ULTRASOUND ACR BI-RADS CATEGORY 4: SUSPICIO US There is a persistent subtle area of architectural distortion in the posterior right breast, slightly lateral to the posterior nipple line on the spot compression CC tomosynthesis images, without corres ponding abnormality identified on the spot compression MLO tomosynthesis images, and no suspicious so nographic correlate identified. Given the persistent nature in the CC projection, definitive charact erization with a stereotactic tomosynthesis guided biopsy, likely CC from below approach, is recommen ded for definitive characterization as this could represent a radial scar. These results and recommendations were discussed with the patient at the time of the exam. She tenta tively scheduled the right breast stereotactic tomosynthesis biopsy prior to leaving our department. Approximately 10% of breast cancers are not detected with mammography. A negative mammographic report should not delay biopsy if a clinically suggestive mass is present. Lilly Fong M.D. ay/:02/14/2018 12:22:00 Geophysical Support Specialist: Vidhya HERMOSILLO(Alessio)(Kate), [facility] letter sent: Abnormal 4/5 BI-RADS Code: ACR BI-RADS Category 4: Suspicious Ultrasound BI-RADS: ACR BI-RADS Category 4: Suspici ous
== END | disposition home or self-care (01) ==
LOC: C.MAMM 11:18
PROVIDERS: ATTEND Obstetrics & Gynecology
DX: N64.89 Other specified disorders of breast (principal)

== ENCOUNTER → 2018-02-24 | Outpatient (CLI) | payer BC ==
--- NOTE | 2018-02-24 13:28 | Discharge Instructions ---
Discharge Instructions Procedure Procedure Date: February 24, 2018. Reason for visit: Right Distortion. Discharge Discharge Date: February 24, 2018. Discharge Diagnosis: status post breast biopsy Instructions Activity Recommendations: Additional Limitations (see below) Return to School/Work: no limitations Recommended Home Diet: No Limitations Provider Instructions: ACTIVITY RECOMMENDATIONS: * No lifting, pushing, pulling or exercising the affected side for three days. RETURN TO SCHOOL/WORK: * You may return to work/school after the procedure, but do not perform any strenuous activities for 24 to 48 hours. MEDICATIONS: * Tylenol (two 325 mg) every four to six hours if needed for mild pain (if not allergic to Tylenol). DIET: * Resume previous diet. SPECIAL CARE INSTRUCTIONS: * Keep biopsy site dry for 24 hours. May shower after 24 hours, but do not soak (bathe) incision. * May remove Tegaderm (plastic patch) tomorrow AFTER showering. * Leave the steri-strips on for one week. Allow the steri-strips to fall off by themselves. If not off after one week, you may remove them. You may place a Bandaid crosswise over the strips, if desired. * Apply ice 10 minutes on and 10 minutes off as needed. * Wear a bra at bedtime to sleep more comfortably for 2-3 days. * Your referring physician should have the results after approximately 5 to 7 business days. * Call for unusual bleeding, fever, drainage, etc or if you have any questions call during normal business hours or after hours call Dr Oritz, . FOLLOW UP VISIT: Follow-up with Referring Physician as scheduled. Allergies Coded Allergies: Amitriptyline (Verified Allergy, Unknown, VERY TIRED, 09/22/17) Bupropion (Verified Allergy, Unknown, "FELT PSYCHO", 09/22/17) Latex1 -Allergic Contact Dermititis (Verified Allergy, Unknown, HIVES, 09/22/17) Magnesium Salicylate (Verified Allergy, Unknown, "ALLERGIC TO MSG ON SALADS", 09/22/17) Meloxicam (Verified Allergy, Unknown, "NUMBNESS IN ARMS" AND VIOLENT GOLD/ MIGRAINES, 09/22/17) Silver (Verified Allergy, Unknown, SKIN BREAKOUT, 09/22/17) Citalopram (Verified Adverse Reaction, Unknown, WEIGHT GAIN, SIGNIFICANT, 09/27/17) Doxycycline (Verified Adverse Reaction, Unknown, SEVERE NAUSEA, GI UPSET, 09/27/17) Escitalopram (Verified Adverse Reaction, Unknown, WEIGHT GAIN, "FELT WORSE ", 09/27/17) Fluoxetine (Verified Adverse Reaction, Unknown, SIGNIFICANT WEIGHT GAIN 60 LBS, 09/27/17) Gabapentin (Verified Adverse Reaction, Unknown, EXCESSIVE FATIGUE, FELT LIKE A "ZOMBIE", 09/27/17) Sertraline (Verified Adverse Reaction, Unknown, WEIGHT GAIN, FELT WORSE, 09/27/17) Carla Milan Recommendations: Call your doctor if: * Temperature above 101 degrees * Pain not relieved by pain medicine ordered * There is increased drainage or redness from any incision * You have any unanswered questions or concerns. Your Doctors Instructions noted above were prepared by provider Patricia Ortiz. Patient Signature Section: Patient Instructions Signature Page Dariela Dan Patient (or Guardian) Signature/Date: I have read and understand the instructions given to me by my caregivers. Caregiver/RN/Doctor Signature/Date: The above-named patient and/or guardian has received patient instructions on this date. + Original Patient Signature Page (only) stays with chart. Please make copy for patient.
--- NOTE | 2018-02-25 07:47 | MAMMOGRAPHY REPORT ---
STEREOTACTIC GUIDED BIOPSY RIGHT BREAST: 02/24/2018 CLINICAL HISTORY: Focal architectural distortion within the right lateral posterior breast. PATIENT CONSENT: The procedure, risks, benefits, and alternatives of stereotactic biopsy with clip pl acement were discussed with the patient, and verbal and written consent was obtained. A timeout was performed immediately prior to the procedure. PROCEDURE DESCRIPTION: With tomosynthesis stereotactic guidance, aseptic technique, and lidocaine as a local anesthetic (1% lidocaine to anesthetize the skin and 1% lidocaine with epinephrine to anesthe tize the deeper tissues), the focal architectural distortion seen on the cc view only in the right po sterior breast was sampled multiple times with a 9-gauge vacuum-assisted biopsy needle ([employer]). The path of approach was caudocranial. A metallic marker clip was placed at the biopsy site. This was confirmed on postprocedure mammograms. Direct pressure was applied at the biopsy site and hemos tasis was readily achieved. The patient tolerated the procedure without complication. She was given wound care instructions. COMPARISON: Comparison is made to exams dated: 02/14/2018 ultrasound, 02/14/2018 mammogram, 02/02/2018 mammogram, 02/01/2017 mammogram, 01/30/2016 mammogram, and 01/28/2015 mammogram - [facility]. IMPRESSION: STEREOTACTIC GUIDED BIOPSY Tomosynthesis stereotactic biopsy of architectural distortion seen within the right posterior breast on the cc view only, with clip placement. The patient will receive pathology results from her referr ing provider. Pending benign pathology results, recommend follow-up diagnostic tomosynthesis mammogr ams of the right breast in 6 months to confirm stability. Patricia Ortiz M.D. /:02/24/2018 13:52:03 Attending Technologist: Leatha Brandt, [facility] Diesel Engine Pipe Fitter: Janett CHAND)(Kate), [facility]
--- NOTE | 2018-02-25 07:50 | MAMMOGRAPHY REPORT ---
UNILATERAL RIGHT DIGITAL DIAGNOSTIC MAMMOGRAM TOMOSYNTHESIS: 02/24/2018 CLINICAL HISTORY: Status post right breast stereotactic biopsy. TECHNIQUE: Breast tomosynthesis in addition to standard 2D mammography was performed. Postprocedura l right CC and ML 2D and tomosynthesis images were obtained. COMPARISON: Comparison is made to exams dated: 02/14/2018 ultrasound, 02/14/2018 mammogram, 02/02/2018 mammogram, 02/01/2017 mammogram, 01/30/2016 mammogram, and 01/28/2015 mammogram - [facility]. BREAST COMPOSITION: There are scattered areas of fibroglandular density in the right breast. FINDINGS: A new biopsy marker clip and associated postbiopsy changes are seen at the site of the biop sied distortion within the right breast at approximately 12:00 posteriorly. Note that the architectu ral distortion is only well seen on the cc view. There is probable superior migration of the biopsy clip from the biopsy site, as the biopsy clip is located approximately 2.7 cm superior to the focal p ocket of air which likely indicates the site of biopsy, however, it is difficult to assess for migrat ion as the architectural distortion was not evident on the lateral views. No significant postbiopsy hematoma is seen. IMPRESSION: POST PROCEDURE IMAGING FOR MARKER PLACEMENT New biopsy marker clip status post right breast stereotactic biopsy. Pathology results are pending. Approximately 10% of breast cancers are not detected with mammography. A negative mammographic report should not delay biopsy if a clinically suggestive mass is present. Patricia Ortiz M.D. ah/:02/24/2018 13:57:02 Flatcar Whacker: Janett CHAND)(Kate), [facility] BI-RADS Code: Post Procedure Imaging For Marker Placement
== END | disposition home or self-care (01) ==
LOC: C.MAMM 12:35
PROVIDERS: ATTEND Obstetrics & Gynecology
DX: N64.9 Disorder of breast, unspecified (principal)

== ENCOUNTER 2019-10-20 11:42 | Observation (INO) ==
[2019-10-20] MEDS ORDERED: methylPREDNISolone 125 MG/2 ML VIAL IV STA (12:47)
[2019-10-20] MEDS ORDERED: ALBUT/IPRATROP 3MG/0.5MG NEB 3 ML VIAL INH STA (12:47)
[2019-10-20] MEDS ORDERED: SODIUM CHLORIDE 0.9% 1000ML 1,000 ML IV SCH (13:00)
--- NOTE | 2019-10-20 13:20 | XRay Report ---
XR chest 1V portable CLINICAL HISTORY: dyspnea dyspnea COMPARISON STUDY: 09/22/2019 FINDINGS: Mild stable cardiomegaly. Mild prominence pulmonary vasculature. No focal infiltrate. IMPRESSION: Mild pulmonary vascular congestion. ACT 112: Negative or not required by law. The above report was generated using voice recognition software. It may contain grammatical, syntax or spelling errors. Electronically signed by: Gabino Guevara M.D. 10/20/2019 1:19 PM
[2019-10-20 13:37] LABS: Basophils # (auto) 0.01 K/uL (0-0.2); Basophils % (auto) 0.1 %; Eosinophils # (auto) 0.01 K/uL (0-0.5); Eosinophils % (auto) 0.1 %; Hematocrit (blood only) 38.8 % (37-47); Hemoglobin 12.6 g/dL (12.0-16.0); Immature Granulocytes # (auto) 0.19 K/uL (0.00-0.02); Immature Granulocytes % (auto) 2.3 %; Lymphocytes # (auto) 1.83 K/uL (1.2-3.4); Lymphocytes % (auto) 22.3 %; Mean Corpuscular Hemoglobin 31.1 pg (25-34); Mean Corpuscular Hgb Conc 32.5 g/dL (32-36); Mean Corpuscular Volume 95.8 fL (80-100); Monocytes # (auto) 0.46 K/uL (0.11-0.59); Monocytes % (auto) 5.6 %; Neutrophils # (auto) 5.69 K/uL (1.4-6.5); Neutrophils % (auto) 69.6 %; Platelet Count 162 K/uL (130-400); RDW Coefficient of Variation 14.2 % (11.5-14.5); RDW Standard Deviation 49.7 fL (36.4-46.3); Red Blood Count 4.05 M/uL (4.2-5.4); White Blood Count 8.19 K/uL (4.8-10.8)
[2019-10-20 13:56] LABS: Alanine Aminotransferase 21 U/L (12-78); Albumin Level 3.6 gm/dl (3.4-5.0); Aspartate Aminotransferase 14 U/L (15-37); BUN Creatinine Ratio 23.3 (10-20); Blood Urea Nitrogen 26 mg/dl (7-18); Calcium 9.3 mg/dl (8.5-10.1); Carbon Dioxide 29 mmol/L (21-32); Chloride 106 mmol/L (98-107); Creatinine Clr Calc Pharmacy 61.2 ml/min; Est GFR (African American) 63.6; Est GFR (Non-African American) 54.9; Glucose 105 mg/dl (70-99); Magnesium 2.2 mg/dl (1.8-2.4); Potassium 4.2 mmol/L (3.5-5.1); Sodium 139 mmol/L (136-145)
[2019-10-20 14:01] LABS: Albumin Globulin Ratio 1.1 (0.9-2); Alkaline Phosphatase 94 U/L (45-117); Bilirubin,Total 0.3 mg/dl (0.2-1); Globulin 3.4 gm/dl (2.5-4.0); Troponin I < 0.015 ng/ml (0-0.045)
[2019-10-20] MEDS ORDERED: cefTRIAXone SODIUM 2,000 MG/70 ML BAG IV STA (14:51)
[2019-10-20] MEDS ORDERED: ALBUT/IPRATROP 3MG/0.5MG NEB 3 ML VIAL NEB STA (14:51)
--- NOTE | 2019-10-20 16:26 | Emergency Department Note ---
History of Present Illness General Chief Complaint: Asthma Stated Complaint: ASTHMA ATTACK Source: patient Mode of arrival: ambulatory Limitations: no limitations History of Present Illness Provider complaint: "asthma attack", shortness of breath and wheezing Onset (ago): day(s) 10 Severity: severe Context: recent URI Associated symptoms: productive cough Asthma History: childhood onset and history of prior ED visit Treatments Prior to Arrival: inhaled bronchodilator and other (PO steroid, azithromycin) This 59-year-old female patient presents emergency department today, ambulatory, complaining of an asthma attack/acute bronchitis. The patient states she has been sick since October 12. She reports cough, wheezing, and difficulty catching her breath since that time. She was seen at [facility] [address] last week and had a negative chest x-ray and influenza testing performed. She was diagnosed with acute bronchitis and prescribed a 60 mg prednisone taper. The patient saw her PCP on Wednesday, 5 days ago. She states she was given azithromycin in addition to the steroids. She has also been using albuterol nebulizers every 4 hours with some improvement. She returned to work yesterday and symptoms significantly worsened when she was unable to do the nebulizers every 4 hours. Today, symptoms were even worse still. She contacted her PCP and was sent to the ED for evaluation. The patient denies any fever. She states she has had asthma exacerbation similar to this in the past. She denies any chest pain, abdominal pain, nausea, vomiting, numbness, tingling, weakness, or other associated symptoms. Related Data Current Asthma Therapy: inhaled bronchodilator Home Medications Home Medications Medication Instructions Recorded Confirmed Type albuterol sulfate 2.5 mg/3 mL 2.5 mg INHALATION QID PRN #75 ml 05/09/19 10/20/19 Rx (0.083 %) solution for nebulization albuterol sulfate 90 mcg/actuation 1 puff INHALATION Q6H PRN #6.7 gm 05/09/19 10/20/19 Rx aerosol inhaler cetirizine 10 mg capsule 10 mg PO QAM #90 cap 05/09/19 10/20/19 Rx multivitamin 1 tab PO QAM #30 tab 05/09/19 10/20/19 Rx triamterene 37.5 1 tab PO QAM #90 tab 05/09/19 10/20/19 Rx mg-hydrochlorothiazide 25 mg tablet vitamin E 400 unit capsule 400 unit PO QAM #30 cap 05/09/19 10/20/19 Rx levothyroxine 125 mcg tablet 125 mcg PO DAILY #30 tab 08/11/19 10/20/19 Rx nitrofurantoin macrocrystal 100 mg 100 mg PO HS #30 cap 08/23/19 10/20/19 Rx capsule oxybutynin chloride 5 mg tablet 5 mg PO QAM #90 tab 08/23/19 10/20/19 Rx aspirin [Aspir-81] 81 mg PO Q2D 09/22/19 10/20/19 History fluticasone furoate-vilanterol 1 inh INHALATION QAM 09/22/19 10/20/19 History [Breo Ellipta] ibuprofen 400 mg PO QAM 09/22/19 10/20/19 History montelukast [Singulair] 10 mg PO HS 09/22/19 10/20/19 History omeprazole 40 mg PO QAM 09/22/19 10/20/19 History alprazolam 0.5 mg tablet 0.5 mg PO TID PRN #30 tab 09/25/19 10/20/19 Rx azithromycin 250 mg tablet See Rx Instructions PO .COMPLEX #6 10/16/19 10/20/19 Rx tab acyclovir 400 mg PO QAM 10/20/19 10/20/19 History calcium carbonate 0 mg PO QAM 10/20/19 10/20/19 History prednisone 20 mg PO DAILY 10/20/19 10/20/19 History psyllium husk [Metamucil] 1 tbsp PO QAM 10/20/19 10/20/19 History Allergies Allergy/AdvReac Type Severity Reaction Status Date / Time amitriptyline Allergy Unknown VERY TIRED Verified 10/20/19 12:37 bupropion Allergy Unknown "FELT Verified 10/20/19 12:37 PSYCHO" latex Allergy Unknown HIVES Verified 10/20/19 12:37 magnesium salicylate Allergy Unknown "ALLERGIC Verified 10/20/19 12:37 TO MSG ON SALADS" meloxicam Allergy Unknown "NUMBNESS Verified 10/20/19 12:37 IN ARMS" AND VIOLENT GOLD/MIGRAINES silver Allergy Unknown SKIN Verified 10/20/19 12:37 BREAKOUT sulfamethoxazole Allergy Verified 10/20/19 12:37 [From Bactrim] trimethoprim [From Bactrim] Allergy Verified 10/20/19 12:37 citalopram AdvReac Unknown WEIGHT Verified 10/20/19 12:37 GAIN, SIGNIFICANT doxycycline AdvReac Unknown SEVERE Verified 10/20/19 12:37 NAUSEA, GI UPSET escitalopram AdvReac Unknown WEIGHT Verified 10/20/19 12:37 GAIN, "FELT WORSE" fluoxetine AdvReac Unknown SIGNIFICANT Verified 10/20/19 12:37 WEIGHT GAIN 60 LBS gabapentin AdvReac Unknown EXCESSIVE Verified 10/20/19 12:37 FATIGUE, FELT LIKE A "ZOMBIE" sertraline AdvReac Unknown WEIGHT Verified 10/20/19 12:37 GAIN, FELT WORSE Past Med/Surg History Medical History Asthma (Acute) Peripheral edema Spinal stenosis Tarlov cyst (Inactive) Surgical History History of History of back surgery CYST REMOVED FROM LUMBAR AREA History of cholecystectomy LAP History of dilation of urethra History of endoscopic sinus surgery History of hysterectomy History of laparoscopy History of oral surgery History of sinus surgery Hx of colonoscopy Family History Mother Asthma Allergies Son Allergies Asthma Sinusitis Grandfather Allergies Asthma Social History Preferred Language: Malay Communication Ability: Effective Shop Router Required: No Beliefs That Will Affect Care: None Current Living Situation: Alone Other Information That Helps Us Care for You: No Feels Safe at Home: Yes Safety Concerns: Feels Safe At This Time Smoking Status: Former smoker Do You Dip or Chew Tobacco: No ; Second Hand Exposure: No ; Tobacco Cessation Education Requested by Patient: No Hx Alcohol Use: Yes Alcohol type: beer Alcohol Intake Frequency: Holidays/Special Occasions Hx Substance Use: No Review of Systems A total of 10 systems reviewed and were otherwise negative Physical Exam Vital Signs Vital Signs - 24 hr 10/20/19 11:49 10/20/19 13:24 10/20/19 13:38 Temperature 36.6 C Temperature Source Oral Pulse Rate 94 H Pulse Rate [Exercises] Pulse Rate [Finger] 83 51 L Respiratory Rate 20 20 16 Respiratory Rate [Exercises] Respiratory Effort / Characteristics Non-Labored Spontaneous Spontaneous Short of Breath Respiratory Depth Normal Respiratory Pattern Regular Blood Pressure 123/79 Blood Pressure [Right Arm] 103/54 L Blood Pressure Mean 93 Blood Pressure Mean [Right Arm] 70 Blood Pressure Position Sitting Pulse Oximetry 95 95 93 Pulse Oximetry [Exercises] Oxygen Delivery Method Room Air Room Air Room Air Sepsis Recent Fever Within 48 Hours No Sepsis New/Unexplained Change in Mental Status No Sepsis Action Taken by Nursing No Action Required 10/20/19 13:39 10/20/19 14:27 10/20/19 15:00 Temperature Temperature Source Pulse Rate Pulse Rate [Exercises] Pulse Rate [Finger] 48 L 58 L Respiratory Rate 16 16 Respiratory Rate [Exercises] Respiratory Effort / Characteristics Non-Labored Spontaneous Respiratory Depth Respiratory Pattern Blood Pressure Blood Pressure [Right Arm] 116/74 Blood Pressure Mean Blood Pressure Mean [Right Arm] 88 Blood Pressure Position Pulse Oximetry 94 97 93 Pulse Oximetry [Exercises] Oxygen Delivery Method Room Air Room Air Room Air Sepsis Recent Fever Within 48 Hours Sepsis New/Unexplained Change in Mental Status Sepsis Action Taken by Nursing 10/20/19 16:36 10/20/19 16:45 Temperature Temperature Source Pulse Rate Pulse Rate [Exercises] 136 H Pulse Rate [Finger] 85 Respiratory Rate 16 Respiratory Rate [Exercises] 26 H Respiratory Effort / Characteristics Respiratory Depth Respiratory Pattern Blood Pressure Blood Pressure [Right Arm] 111/43 L Blood Pressure Mean Blood Pressure Mean [Right Arm] 65 Blood Pressure Position Pulse Oximetry 93 Pulse Oximetry [Exercises] 86 L Oxygen Delivery Method Room Air Room Air Sepsis Recent Fever Within 48 Hours Sepsis New/Unexplained Change in Mental Status Sepsis Action Taken by Nursing VITALS: Vitals are noted on the nurse's note and reviewed by myself. Vital signs stable. GENERAL: This is a 59-year-old white female, in no acute distress, nondiaphoretic, well-developed well-nourished. SKIN: The skin was without rashes, erythema, edema, or bruising. There is no tenting of the skin. Capillary refill less than 2 seconds. HEAD: Normocephalic atraumatic. EARS: External auditory canals clear, tympanic membranes pearly marks without erythema or effusion bilaterally. EYES: Pupils equal round and reactive to light and accommodation. Conjunctivae without injection, sclerae without icterus. NOSE: Patent, turbinates without inflammation or discharge. No sinus tende rness. MOUTH: Mucous membranes moist. Tonsils are not enlarged. Pharynx without erythema or exudate. Uvula midline. Airway patent. Tongue does not deviate. NECK: Supple without nuchal rigidity. No lymphadenopathy. No JVD. HEART: Regular rate and rhythm without murmurs gallops or rubs. LUNGS: Diffuse wheezing with diminished breath sounds in all lung fletcher. Pt. is using accessory muscles. No retractions. ABDOMEN: Positive bowel sounds x 4. Normal tympanic percussion. Soft, nontender, without masses or organomegaly. Chu sign negative. No guarding or rebound tenderness. No CVA tenderness bilaterally. MUSCULOSKELETAL: No muscle atrophy, erythema, or edema noted. Full range of motion without joint tenderness in all extremities. No tenderness to palpation. Normal gait. NEURO: Patient was alert and oriented to person place and time. No focal neurological deficits. Course The patient was seen and evaluated as above. IV access obtained, labs drawn. Patient medicated with IV fluids, 125 mg Solu- Medrol, and a DuoNeb treatment. Imaging performed and reviewed by myself and radiologist as above. Labs reviewed by myself. I discussed the findings with the patient at bedside. She was reassessed and notes no improvement in her symptoms. Repeat examination of the breath sounds consistent with diffuse wheezing, rhonchi, and diminished breath sounds. Hour-long DuoNeb treatment performed. The patient was given a dose of IV Rocephin. The patient was reassessed. She notes some improvement, but continues to be short of breath. Repeat lung examination with mildly improved lung sounds, but ongoing diffuse wheezing and rhonchi. I did recommend admission. The patient was very hesitant. Ambulatory pulse ox trial performed. Patient desatted to 86% and heart rate increased to 130. I again recommended admission, and the patient was agreeable. I discussed the case with Dr. Ball and Lupe Saldivar PA-C regarding a dmission. They did agree to see and evaluate the patient. I discussed the case with the annual greenhouse manager. Please see hospitalist dictation regarding ongoing management care of this patient. Administered Medications Albuterol (Duoneb) 3 ml NEB Q4R AJAY Stop: 11/19/19 18:59 Last Admin: 10/20/19 20:00 Dose: 3 ml Documented by: [id number] Discontinued Medications Albuterol (Duoneb) 3 ml INH NOW STA Stop: 10/20/19 12:48 Last Admin: 10/20/19 13:21 Dose: 3 ml Documented by: [id number] Albuterol (Duoneb) 12 ml NEB NOW STA Stop: 10/20/19 14:52 Last Admin: 10/20/19 14:57 Dose: 12 ml Documented by: [id number] Sodium Chloride (Nss 1000ml) 1,000 mls @ 999 mls/hr IV .Q1H1M AJAY Stop: 10/20/19 14:00 Last Infusion: 10/20/19 14:33 Dose: 0 mls/hr Documented by: [id number] Admin: 10/20/19 13:38 Dose: 999 mls/hr Documented by: [id number] Ceftriaxone Sodium (Rocephin) 2,000 mg in 70 mls @ 140 mls/hr IV NOW STA Stop: 10/20/19 15:20 Last Infusion: 10/20/19 15:40 Dose: 0 mls/hr Documented by: [id number] Admin: 10/20/19 15:02 Dose: 140 mls/hr Documented by: [id number] Methylprednisolone (Solumedrol) 125 mg IV NOW STA Stop: 10/20/19 12:48 Last Admin: 10/20/19 13:35 Dose: 125 mg Documented by: [id number] Medical Decision Making Differential Diagnosis + Acute exacerbation, + Status asthmaticus, + bronchitis, + pulmonary embolism, + Pneumonia, + COPD exacerbation, + Pulmonary edema systolic, + Pulmonary edema dystolic, + ARDS, + Pneumothorax, + Foreign body in trachea, + pleural effusion and + ACS Medical Records Attestation: I reviewed the patient's medical records. Home Medications Current Medication List: was personally reviewed by me Laboratory Data Attestation: I reviewed the patient's lab results. No leukocytosis, anemia, thrombocytopenia. Renal, hepatic function, and electrolytes without significant abnormality. Influenza testing negative. Troponin negative. Magnesium 2.2. Result diagrams: 10/20/19 13:21 10/20/19 13:21 Lab Results 10/20/19 10/20/19 10/20/19 Range/Units 13:21 13:21 13:31 WBC 8.19 (4.8-10.8) K/uL RBC 4.05 L (4.2-5.4) M/uL Hgb 12.6 (12.0-16.0) g/dL Hct 38.8 (37-47) % MCV 95.8 (80-100) fL MCH 31.1 (25-34) pg MCHC 32.5 (32-36) g/dL RDW Std Deviation 49.7 H (36.4-46.3) fL RDW Coeff of Azul 14.2 (11.5-14.5) % Plt Count 162 (130-400) K/uL MPV 11.0 H (7.4-10.4) fL Immature Gran % (Auto) 2.3 % Neut % (Auto) 69.6 % Lymph % (Auto) 22.3 % Grainger % (Auto) 5.6 % Eos % (Auto) 0.1 % Baso % (Auto) 0.1 % Immature Gran # (Auto) 0.19 H (0.00-0.02) K/uL Neut # (Auto) 5.69 (1.4-6.5) K/uL Lymph # (Auto) 1.83 (1.2-3.4) K/uL Grainger # (Auto) 0.46 (0.11-0.59) K/uL Eos # (Auto) 0.01 (0-0.5) K/uL Baso # (Auto) 0.01 (0-0.2) K/uL Sodium 139 (136-145) mmol/L Potassium 4.2 (3.5-5.1) mmol/L Chloride 106 (98-107) mmol/L Carbon Dioxide 29 (21-32) mmol/L Anion Gap 4.0 (3-11) BUN 26 H (7-18) mg/dl Creatinine 1.10 (0.6-1.2) mg/dl Est Cr Clr Drug Dosing 61.2 ml/min Est GFR ( Amer) 63.6 Est GFR (Non-Af Amer) 54.9 BUN/Creatinine Ratio 23.3 H (10-20) Glucose 105 H (70-99) mg/dl Calcium 9.3 (8.5-10.1) mg/dl Magnesium 2.2 (1.8-2.4) mg/dl Total Bilirubin 0.3 (0.2-1) mg/dl AST 14 L (15-37) U/L ALT 21 (12-78) U/L Alkaline Phosphatase 94 (45-117) U/L Troponin I < 0.015 (0-0.045) ng/ml Total Protein 7.0 (6.4-8.2) gm/dl Albumin 3.6 (3.4-5.0) gm/dl Globulin 3.4 (2.5-4.0) gm/dl Albumin/Globulin Ratio 1.1 (0.9-2) Influenza Type A Ag Neg for Influ A (Neg) Influenza Type B Ag Neg for Influ B (Neg) Imaging Data Radiologist's Impression: XR chest 1V portable CLINICAL HISTORY: dyspnea dyspnea COMPARISON STUDY: 09/22/2019 FINDINGS: Mild stable cardiomegaly. Mild prominence pulmonary vasculature. No focal infiltrate. IMPRESSION: Mild pulmonary vascular congestion. ACT 112: Negative or not required by law. The above report was generated using voice recognition software. It may contain grammatical, syntax or spelling errors. Electronically signed by: Gabino Guevara M.D. 10/20/2019 1:19 PM ECG Data Attestation: I personally reviewed and interpreted this ECG as follows: Indication: SOB/dyspnea Rate (beats per minute): 49 Rhythm: sinus bradycardia Findings: no ST depression, no T-wave inversion, no ST elevation, no acute is chemic change, no prolonged QT and no ectopy Comparison ECG Date: from (09/22/2019) Change: no significant change Blood Pressure Blood Pressure Findings: Normal blood pressure MDM Narrative This 59-year-old female patient presents emergency department today due to approximately 10-day history of dyspnea, acute bronchitis, and coughing. The patient has been on steroids and antibiotics without significant improvement. There was some improvement with nebulizer treatments at home, but when she returned to work yesterday, symptoms flared up again. On examination here today, she was not initially tachycardic or hypoxic. Her breath sounds were diffusely diminished with significant wheezing and rhonchi throughout. She did not respond to the initial DuoNeb treatment and Solu-Medrol. An hour-long DuoNeb treatment did seem to help somewhat with her symptoms, but she continued to have wheezing and rhonchi throughout. She was resistant to admission initially, however after ambulatory pulse ox trial and desat to 86% requiring 2 L of oxygen via nasal cannula with elevation of her heart rate to 130, she was agreeable to admission for antibiotics, nebulizer treatments, and further management of the respiratory distress. The patient was treated in the ED with IV ceftriaxone. She recently finished a course of azithromycin. She will be admitted to the hospitalist service for ongoing management care of her symptoms. See hospitalist dictation. The chart was completed utilizing [employer] Speech voice recognition software. Grammatical errors, random word insertions, pronoun errors, and incomplete sentences are an occasional consequence of this system due to software limitations, ambient noise, and hardware issues. Any formal questions or concerns about the content, text, or information contained within the body of this dictation should be directly addressed to the provider for clarification. Impression & Plan Acute respiratory distress, Asthma, Bronchitis, Hypoxia Discharge Plan Visit Data *Final* Discharge Date/Time: 10/20/19 17:55 Chief Complaint: Asthma Stated Complaint: ASTHMA ATTACK ED Provider: Tomy Vance ED Midlevel Provider: Ammy Lucero Discharge Problem: Acute respiratory distress, Asthma, Bronchitis, Hypoxia Patient Disposition: Admitted As Inpatient Condition: Good Discharge Instructions Interventions: ED Discharge Assessment Last Done: 10/20/19 17:55
--- NOTE | 2019-10-20 16:58 | History & Physical Report ---
Date of Service October 20, 2019 Assessment & Plan (1) Acute respiratory distress: (2) Hypoxia: (3) Asthma: (4) Bronchitis: (5) Allergic rhinitis: - Acute exacerbation asthma, bronchitis and respiratory distress with hypoxia with O2 sats =86% upon admission, on 2L now with improved O2 sats in the low 90s. - Admit to med surg with tele - Pt was treated with solumedrol 125 mg IV in the ER, will continue with 60 mg Q8H for next day and then can taper down - Finished zpack today, ceftriaxone in the ER, will continue empirically - Order magnesium 1 mg IV ordered to see if this improves her sx. - Flu swab was negative at urgent care on 08/12 per PCP documentation - Supportive care with mucinex, tessalon pearls, o2 and titrate as ablve, sputum culture, duonebs Q4H, got a 1 hour long neb in the ER (6) Obesity: - BMI = 35.5 - Diet and exercise to be encouraged upon discharge (7) Chronic back pain: - Stable (8) GERD (gastroesophageal reflux disease): - Continue (9) Depression: (10) Anxiety: - Continue alprazolam for depression/anxiety - Noted several recent panic attacks with her worsening respiratory symptoms. (11) Osteoarthritis: - stable (12) Hypothyroidism: - Cont levothyroxine 125 mcg daily (13) Recurrent UTI: - Hx of E. coli uti in the past, has followed with Dr. Woody with urology and is on extended abx therapy with nitrofurantoin and oxybutynin, cont while admitted with issues regarding recurrent UTI. (14) DVT prophylaxis: - teds, scds CODE: Full code Dispo: From home, lives alone, likely to be in the hospital for next 1-2 days. History of Present Illness Primary Care Provider: Vinayak Wood MD This is a 59 yo F with PMHx of asthma, former smoker, allergic rhinitis, anxiety, panic attacks, chronic sinusitis, GERD, migraine GOLD, spondylosis, chronic sinusitis, urinary incontinence, recurrent UTI, biliary dyskinesia s/p cholecystectomy and Tarlov cyst s/p surgery with chronic LBP who presents with worsening SOB. She was evaluated by urgent care on 10/14/19 c/o cough that started on 10/12. She was evaluated with CXR and flu swab which were both negative. She was started on prednisone taper (starting 60 mg x 3d, 40 mg x 3d, 20 mg x3d, 10 mg x 3 d and then 10 mg QOD x 3 doses) and was prescribed ne bulizers. She then followed up with her PCP on 10/16/19 where she was treated with zpak, and told to continue the taper. Currently she is on Prednisone 10 mg daily(day1) and just finished the zpack today. She reports that her cough is not significantly improved since starting any of these medications. She is still bringing up slightly white sputum. She has gone into coughing fits throughout the day despite nebulizer use, steroids, azithromycin. Other symptoms include generalized fatigue, chills, denies fevers or sweats. She lives at home by herself, no recent sick contacts. 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 CXR reviewed: Mild pulmonary vasculature Patient was hypoxic at 86% on room air upon arrival, now improved with being on 2 L via NC No WBC, afebrile Allergies Allergy/AdvReac Type Severity Reaction Status Date / Time amitriptyline Allergy Unknown VERY TIRED Verified 10/20/19 12:37 bupropion Allergy Unknown "FELT Verified 10/20/19 12:37 PSYCHO" latex Allergy Unknown HIVES Verified 10/20/19 12:37 magnesium salicylate Allergy Unknown "ALLERGIC Verified 10/20/19 12:37 TO MSG ON SALADS" meloxicam Allergy Unknown "NUMBNESS Verified 10/20/19 12:37 IN ARMS" AND VIOLENT GOLD/MIGRAINES silver Allergy Unknown SKIN Verified 10/20/19 12:37 BREAKOUT sulfamethoxazole Allergy Verified 10/20/19 12:37 [From Bactrim] trimethoprim [From Bactrim] Allergy Verified 10/20/19 12:37 citalopram AdvReac Unknown WEIGHT Verified 10/20/19 12:37 GAIN, SIGNIFICANT doxycycline AdvReac Unknown SEVERE Verified 10/20/19 12:37 NAUSEA, GI UPSET escitalopram AdvReac Unknown WEIGHT Verified 10/20/19 12:37 GAIN, "FELT WORSE" fluoxetine AdvReac Unknown SIGNIFICANT Verified 10/20/19 12:37 WEIGHT GAIN 60 LBS gabapentin AdvReac Unknown EXCESSIVE Verified 10/20/19 12:37 FATIGUE, FELT LIKE A "ZOMBIE" sertraline AdvReac Unknown WEIGHT Verified 10/20/19 12:37 GAIN, FELT WORSE Home Medications Home Medications Medication Instructions Recorded Confirmed Type albuterol sulfate 2.5 mg/3 mL 2.5 mg INHALATION QID PRN #75 ml 05/09/19 10/20/19 Rx (0.083 %) solution for nebulization albuterol sulfate 90 mcg/actuation 1 puff INHALATION Q6H PRN #6.7 gm 05/09/19 10/20/19 Rx aerosol inhaler cetirizine 10 mg capsule 10 mg PO QAM #90 cap 05/09/19 10/20/19 Rx multivitamin 1 tab PO QAM #30 tab 05/09/19 10/20/19 Rx triamterene 37.5 1 tab PO QAM #90 tab 05/09/19 10/20/19 Rx mg-hydrochlorothiazide 25 mg tablet vitamin E 400 unit capsule 400 unit PO QAM #30 cap 05/09/19 10/20/19 Rx levothyroxine 125 mcg tablet 125 mcg PO DAILY #30 tab 08/11/19 10/20/19 Rx nitrofurantoin macrocrystal 100 mg 100 mg PO HS #30 cap 08/23/19 10/20/19 Rx capsule oxybutynin chloride 5 mg tablet 5 mg PO QAM #90 tab 08/23/19 10/20/19 Rx aspirin [Aspir-81] 81 mg PO Q2D 09/22/19 10/20/19 History fluticasone furoate-vilanterol 1 inh INHALATION QAM 09/22/19 10/20/19 History [Breo Ellipta] ibuprofen 400 mg PO QAM 09/22/19 10/20/19 History montelukast [Singulair] 10 mg PO HS 09/22/19 10/20/19 History omeprazole 40 mg PO QAM 09/22/19 10/20/19 History alprazolam 0.5 mg tablet 0.5 mg PO TID PRN #30 tab 09/25/19 10/20/19 Rx azithromycin 250 mg tablet See Rx Instructions PO .COMPLEX #6 10/16/19 10/20/19 Rx tab acyclovir 400 mg PO QAM 10/20/19 10/20/19 History calcium carbonate 0 mg PO QAM 10/20/19 10/20/19 History prednisone 20 mg PO DAILY 10/20/19 10/20/19 History psyllium husk [Metamucil] 1 tbsp PO QAM 10/20/19 10/20/19 History Past Med/Surg History Medical History Asthma (Acute) Peripheral edema Spinal stenosis Tarlov cyst (Inactive) Surgical History History of History of back surgery CYST REMOVED FROM LUMBAR AREA History of cholecystectomy LAP History of dilation of urethra History of endoscopic sinus surgery History of hysterectomy History of laparoscopy History of oral surgery History of sinus surgery Hx of colonoscopy Family History Mother Asthma Allergies Son Allergies Asthma Sinusitis Grandfather Allergies Asthma Social History Preferred Language: Maldivian Communication Ability: Effective Activity Specialist Required: No Beliefs That Will Affect Care: None Current Living Situation: Alone Other Information That Helps Us Care for You: No Feels Safe at Home: Yes Safety Concerns: Feels Safe At This Time Smoking Status: Former smoker Do You Dip or Chew Tobacco: No ; Second Hand Exposure: No ; Tobacco Cessation Education Requested by Patient: No Hx Alcohol Use: Yes Alcohol type: beer Alcohol Intake Frequency: Holidays/Special Occasions Hx Substance Use: No Review of Systems Review of Systems: Constitutional: No fever, sweats, + chills, + generalized fatigue Eyes: No diplopia, no worsening or blurred vision ENT: normal hearing, no trouble swallowing Respiratory: + cough, +sputum, + dyspnea at rest and on exertion Cardiovascular: No chest pain, tightness or palpitations Abdomen: No pain, nausea, vomiting, diarrhea or constipation Musculoskeletal: No joint pain, calf pain, swelling Neurologic: + Generalized weakness, no numbness/tingling, or balance problems Psychiatric: No anxiety or depression Skin: No rash or itch Physical Exam Physical Exam: General: awake, alert, + mild distress, + obese, BMI 35.5 Head: Normocephalic, atraumatic ENT: PERRL, EOMI, no pharyngeal exudate, mucous membranes moist Chest: + Diffuse expiratory wheeze, + coarse breath sounds throughout, on 2 L via NC with O2 sats of low 90s at bedside, no adventitious breath sounds Cardiac: Regular rate and rhythm, no murmur, no JVD, normal peripheral pulses, good capillary refill Abdominal: NABS x 4 quadrants, soft, nondistended, nontender to palpation, no rebound, guarding or tenderness Extremities: Normal inspection, no peripheral edema or erythema, calfs nontender to palpation Psych: Normal mood and affect Neuro: AAO x 3, strength intact bilaterally and related 5/5, no motor deficits, speech is clear, no peripheral sensory deficits Skin: no rash or erythema Results & Data Vital Signs (Past 12 Hours) Vital Signs Temp Pulse Pulse Pulse Resp Resp BP 10/20/19 16:45 136 H 26 H 10/20/19 16:36 85 16 10/20/19 15:00 58 L 16 10/20/19 14:27 48 L 16 10/20/19 13:39 10/20/19 13:38 51 L 16 10/20/19 13:24 83 20 10/20/19 11:49 36.6 C 94 H 20 123/79 BP Pulse Ox Pulse Ox 10/20/19 16:45 86 L 10/20/19 16:36 111/43 L 93 10/20/19 15:00 93 10/20/19 14:27 116/74 97 10/20/19 13:39 94 10/20/19 13:38 103/54 L 93 10/20/19 13:24 95 10/20/19 11:49 95 Diagnostic Findings XR chest 1V portable CLINICAL HISTORY: dyspnea dyspnea COMPARISON STUDY: 09/22/2019 FINDINGS: Mild stable cardiomegaly. Mild prominence pulmonary vasculature. No focal infiltrate. IMPRESSION: Mild pulmonary vascular congestion. Code Status & VTE Plan Code Status Full code Supervising Physician Co-Signing Physician Notes Patient seen and examined, chart reviewed, case discussed with MARY BETH Saldivar and I agree with her assessment and plan as documented above. Briefly, patient is a 59yo C female presenting with acute exacerbation of asthma. On exam she is afebrile, HD stable, receiving neb treatment, +cough HEENT - MMM, neck supple, no JVD Heart - +S1/S2, regular, no m/r/g Lungs - coarse rhonchi bilaterally with diffuse inspiratory and expiratory wheezing Abd - +BS, soft, NT/ND Ext - no edema Labs and images reviewed. Assessment/Plan - -Solumedrol, Nebs, Magnesium -Remainder of plan as above PG Care Time/CCT Total # of Minutes Spent Total Time Spent with Patient: Total time spent is greater than 50% in coordination of care (as documented) at patient's floor/unit and/or counseling patient:
[2019-10-20] MEDS ORDERED: ACETAMINOPHEN 325 MG TAB PO PRN (17:16)
[2019-10-20] MEDS ORDERED: ONDANSETRON INJ 2 MG/ML 2 ML VIAL IV PRN (17:16)
[2019-10-20] MEDS ORDERED: MAGNESIUM SULFATE / D5W 1 GM/100 ML BAG IV STA (18:15)
[2019-10-20] MEDS ORDERED: ALBUTEROL HFA 8 GM INHALER INH PRN (19:31)
[2019-10-20] MEDS ORDERED: ALBUTEROL 0.083% NEBU SOLN 3 ML VIAL INH PRN (19:31)
[2019-10-20] MEDS ORDERED: cefTRIAXone SODIUM 1,000 MG/50 ML BAG IV STA (19:39)
[2019-10-20] MEDS: ALBUT/IPRATROP 3MG/0.5MG NEB 3 ML VIAL NEB SCH ×2 (20:00→22:33)
[2019-10-20] MEDS: BENZONATATE 100 MG CAPSULE PO SCH (20:39)
[2019-10-20] MEDS: guaiFENesin 600 MG TABCR PO SCH (20:41)
[2019-10-20] MEDS: MONTELUKAST SODIUM 10 MG TABLET PO SCH (21:40)
[2019-10-20] MEDS: methylPREDNISolone 60 MG in SYRINGE 0 ML IV SCH (21:40)
[2019-10-20] MEDS: nitrofurantoin macrocrystaL 50 MG CAP PO SCH (21:40)
[2019-10-20] MEDS ORDERED: methylPREDNISolone 125 MG/2 ML VIAL IV SCH (22:00)
[2019-10-21] MEDS: ALBUT/IPRATROP 3MG/0.5MG NEB 3 ML VIAL NEB SCH ×6 (02:29→23:23)
[2019-10-21] MEDS: LEVOTHYROXINE SODIUM 125 MCG TABLET PO SCH (05:47)
[2019-10-21] MEDS: methylPREDNISolone 60 MG in SYRINGE 0 ML IV SCH ×3 (05:48→23:05)
[2019-10-21 07:26] LABS: Hematocrit (blood only) 37.3 % (37-47); Mean Corpuscular Hgb Conc 32.2 g/dL (32-36); Mean Corpuscular Volume 96.4 fL (80-100); Mean Platelet Volume 11.5 fL (7.4-10.4); Platelet Count 153 K/uL (130-400); RDW Coefficient of Variation 14.5 % (11.5-14.5); RDW Standard Deviation 50.5 fL (36.4-46.3); Red Blood Count 3.87 M/uL (4.2-5.4); White Blood Count 10.41 K/uL (4.8-10.8)
--- NOTE | 2019-10-21 07:47 | Electrocardiogram Report ---
Test Reason : Blood Pressure : / mmHG Vent. Rate : 049 BPM Atrial Rate : 049 BPM P-R Int : 166 ms QRS Dur : 096 ms QT Int : 480 ms P-R-T Axes : 042 003 028 degrees QTc Int : 433 ms Sinus bradycardia Otherwise normal ECG When compared with ECG of 22-SEP-2019 15:53, No significant change was found Confirmed by Randall Oneill ([id number]) on 10/21/2019 7:47:16 AM Referred By: REFERRED SELF Confirmed By:Richi Oneill
[2019-10-21 07:58] LABS: Albumin Level 3.2 gm/dl (3.4-5.0); BUN Creatinine Ratio 22.7 (10-20); Calcium 9.2 mg/dl (8.5-10.1); Creatinine Clr Calc Pharmacy 58.2 ml/min; Est GFR (African American) 60.3; Potassium 4.1 mmol/L (3.5-5.1)
[2019-10-21 08:01] LABS: Albumin Globulin Ratio 0.9 (0.9-2); Bilirubin,Total 0.3 mg/dl (0.2-1); Globulin 3.5 gm/dl (2.5-4.0); Total Protein 6.7 gm/dl (6.4-8.2)
[2019-10-21] MEDS: ASPIRIN 81 MG ECTAB PO SCH (08:25)
[2019-10-21] MEDS: TRIAMTERENE/HCTZ 37.5/25MG TAB PO SCH (08:25)
[2019-10-21] MEDS: OXYBUTYNIN CHLORIDE 5 MG TAB PO SCH (08:25)
[2019-10-21] MEDS: PSYLLIUM 58.6% POWDER PACKET PO SCH (08:25)
[2019-10-21] MEDS: guaiFENesin 600 MG TABCR PO SCH ×2 (08:26→20:46)
[2019-10-21] MEDS: PANTOprazole 40 MG TAB PO SCH (08:26)
[2019-10-21] MEDS: BENZONATATE 100 MG CAPSULE PO SCH ×3 (08:26→20:46)
[2019-10-21] MEDS: ACYCLOVIR 400 MG TAB PO SCH (08:26)
[2019-10-21] MEDS: TOCOPHERYL, DL-ALPHA 400 UNITS CAP PO SCH (08:26)
[2019-10-21] MEDS: MULTIVITAMIN TAB PO SCH (08:26)
[2019-10-21] MEDS: CETIRIZINE HCL 10 MG TABLET PO SCH (08:27)
[2019-10-21] MEDS: ALPRAZolam 0.5 MG TABLET PO PRN (08:33)
[2019-10-21] MEDS: [UNRECOGNIZED DRUG - OTHER] INH SCH (16:37)
[2019-10-21] MEDS: VILANTEROL INH SCH (16:37)
--- NOTE | 2019-10-21 20:11 | Hospitalist Progress Note ---
Date of Service October 21, 2019 Assessment & Plan (1) Acute respiratory distress: 2nd asthma exacerbation - distress quickly resolved following admission. (2) Asthma: with exacerbation. cont IV steroids; no change at this time. but anticipate weaning tomorrow. cont nebs. cont inhalers. cont mucinex BID. add incentive lucy and flutter valve. (3) Allergic rhinitis: cont home meds (4) Obesity: - BMI = 35.5 (5) Chronic back pain: - Stable; no issues (6) GERD (gastroesophageal reflux disease): (7) Depression: (8) Anxiety: alprazolam prn anxiety (9) Osteoarthritis: (10) Hypothyroidism: - Cont levothyroxine 125 mcg daily - TSH 08/2019 wnl (11) Recurrent UTI: cont macrobid UTI prophy (12) DVT prophylaxis: SCS ambulating Subjective patient states she is feeling better. no further distress. wheezing improved. minimal cough. no dyspnea. eating well. no fevers. Review of Systems Constitutional: no fever Respiratory: no hemoptysis and no sputum production Cardiovascular: no chest pain Gastrointestinal: no abdominal pain Physical Exam Constitutional: well developed and well nourished; no acute distress ENMT: external ear and nose normal, oropharynx normal Respiratory: no respiratory distress, no labored breathing and does not use accessory muscles Auscultation: + wheezes; no crackles Cardiovascular: RRR, no murmur, no edema Heart Sounds: normal S1 and normal S2 Vessels: posterior tibial pulses present and dorsalis pedis pulses present; no JVD Extremities: no edema Gastrointestinal (Abdomen): normal bowel sounds, soft, nontender, no hepatosplenomegaly Psychiatric: A+Ox3, euthymic affect Results & Data Vital Signs (Past 12 Hours) Vital Signs Temp Pulse Pulse Resp BP BP Pulse Ox 10/21/19 19:46 70 16 93 10/21/19 19:21 36.5 C 73 20 122/69 91 10/21/19 19:14 68 10/21/19 15:20 36.6 C 55 L 18 110/71 91 10/21/19 15:10 59 L 18 95 10/21/19 11:07 65 18 96 Laboratory Results Laboratory Results - last 24 hr 10/21/19 10/21/19 07:03 07:03 WBC 10.41 RBC 3.87 L Hgb 12.0 Hct 37.3 MCV 96.4 MCH 31.0 MCHC 32.2 RDW Std Deviation 50.5 H RDW Coeff of Azul 14.5 Plt Count 153 MPV 11.5 H Sodium 138 Potassium 4.1 Chloride 106 Carbon Dioxide 26 Anion Gap 6.0 BUN 26 H Creatinine 1.15 Est Cr Clr Drug Dosing 58.2 Est GFR ( Amer) 60.3 Est GFR (Non-Af Amer) 52.0 BUN/Creatinine Ratio 22.7 H Glucose 137 H Calcium 9.2 Total Bilirubin 0.3 AST 10 L ALT 20 Alkaline Phosphatase 87 Total Protein 6.7 Albumin 3.2 L Globulin 3.5 Albumin/Globulin Ratio 0.9 PG Care Time/CCT Total # of Minutes Spent Total Time Spent with Patient: Total time spent is greater than 50% in coordination of care (as documented) at patient's floor/unit and/or counseling patient: (1) Asthma Asthma complication type: with acute exacerbation Asthma persistence: persistent Asthma severity: severe Qualified Code(s): J45.51 - Severe persistent asthma with (acute) exacerbation
[2019-10-21] MEDS: nitrofurantoin macrocrystaL 50 MG CAP PO SCH (20:45)
[2019-10-21] MEDS: MONTELUKAST SODIUM 10 MG TABLET PO SCH (20:46)
[2019-10-22] MEDS: ALBUT/IPRATROP 3MG/0.5MG NEB 3 ML VIAL NEB SCH ×6 (02:42→22:50)
[2019-10-22] MEDS: LEVOTHYROXINE SODIUM 125 MCG TABLET PO SCH (06:05)
[2019-10-22] MEDS: methylPREDNISolone 60 MG in SYRINGE 0 ML IV SCH ×2 (06:05→17:40)
[2019-10-22 06:43] LABS: Hemoglobin 12.7 g/dL (12.0-16.0); Mean Corpuscular Hemoglobin 31.7 pg (25-34); Mean Corpuscular Hgb Conc 33.4 g/dL (32-36); Mean Corpuscular Volume 94.8 fL (80-100); Mean Platelet Volume 11.7 fL (7.4-10.4); Platelet Count 173 K/uL (130-400); RDW Coefficient of Variation 14.6 % (11.5-14.5); RDW Standard Deviation 50.5 fL (36.4-46.3); Red Blood Count 4.01 M/uL (4.2-5.4); White Blood Count 13.65 K/uL (4.8-10.8)
[2019-10-22 07:19] LABS: Albumin Level 3.3 gm/dl (3.4-5.0); BUN Creatinine Ratio 27.8 (10-20); Calcium 9.2 mg/dl (8.5-10.1); Creatinine Clr Calc Pharmacy 64.8 ml/min; Est GFR (African American) 68.9; Est GFR (Non-African American) 59.5; Potassium 4.2 mmol/L (3.5-5.1)
[2019-10-22 07:21] LABS: Albumin Globulin Ratio 0.9 (0.9-2); Bilirubin,Total 0.4 mg/dl (0.2-1); Globulin 3.7 gm/dl (2.5-4.0)
[2019-10-22] MEDS: VILANTEROL INH SCH (08:02)
[2019-10-22] MEDS: PANTOprazole 40 MG TAB PO SCH (08:02)
[2019-10-22] MEDS: OXYBUTYNIN CHLORIDE 5 MG TAB PO SCH (08:02)
[2019-10-22] MEDS: TOCOPHERYL, DL-ALPHA 400 UNITS CAP PO SCH (08:02)
[2019-10-22] MEDS: [UNRECOGNIZED DRUG - OTHER] INH SCH (08:02)
[2019-10-22] MEDS: guaiFENesin 600 MG TABCR PO SCH ×2 (08:03→20:13)
[2019-10-22] MEDS: PSYLLIUM 58.6% POWDER PACKET PO SCH (08:03)
[2019-10-22] MEDS: TRIAMTERENE/HCTZ 37.5/25MG TAB PO SCH (08:03)
[2019-10-22] MEDS: CETIRIZINE HCL 10 MG TABLET PO SCH (08:03)
[2019-10-22] MEDS: BENZONATATE 100 MG CAPSULE PO SCH ×3 (08:03→20:13)
[2019-10-22] MEDS: ACYCLOVIR 400 MG TAB PO SCH (08:03)
[2019-10-22] MEDS: MULTIVITAMIN TAB PO SCH (08:03)
[2019-10-22] MEDS: ALPRAZolam 0.5 MG TABLET PO PRN (08:09)
--- NOTE | 2019-10-22 11:31 | XRay Report ---
XR chest 2V PA/lateral CLINICAL HISTORY: asthma flare, r/o pneumonia COMPARISON STUDY: Chest radiograph October 20, 2019. A chest CT August 10, 2013. FINDINGS: Lung volumes are normal. Linear bibasilar opacities reflect atelectasis. There is no pneumo thorax or pleural effusion. Cardiac size is normal. Mediastinal contours are normal. There is no evid ence for pulmonary edema. IMPRESSION: No acute cardiopulmonary findings. ACT 112: Negative or not required by law. Electronically signed by: Mehrdad Gonzalez M.D. 10/22/2019 11:29 AM
--- NOTE | 2019-10-22 18:32 | Hospitalist Progress Note ---
Date of Service October 22, 2019 Assessment & Plan (1) Asthma: with exacerbation. IMPROVING. cont IV steroids but wean from q8h dosing to q12h. cont nebs. cont inhalers. cont mucinex BID. cont incentive lucy and flutter valve. obtained repeat chest x-ray today to r/o complicating pneumonia - cxr was free of infiltrates. (2) Acute respiratory distress: at time of ER presentation - 2nd asthma exacerbation. distress quickly resolved following admission. (3) Allergic rhinitis: cont home meds (4) Obesity: BMI 35.5 (5) Chronic back pain: Stable; no pain while here (6) GERD (gastroesophageal reflux disease): cont PPI (7) Depression: (8) Anxiety: cont alprazolam prn (9) Osteoarthritis: stable, no complaints today (10) Hypothyroidism: Cont levothyroxine 125 mcg daily TSH 08/2019 wnl (11) Recurrent UTI: cont macrobid for UTI prophy (12) DVT prophylaxis: SCS ambulating home tomorrow? worst case scenario on Wednesday Subjective pt again reports feeling better. mild cough only. no dyspnea at rest or with exertion. minimal sputum production. tele stable with NSR. denies any new complaints. using incentive lucy and flutter valve. Review of Systems Constitutional: no fever, no chills, no fatigue and no anorexia Respiratory: no chest congestion and no hemoptysis Cardiovascular: no chest pain, no dyspnea at rest and no dyspnea on exertion Gastrointestinal: no abdominal pain, no nausea and no vomiting Physical Exam Constitutional: well developed and well nourished; no acute distress ENMT: external ear and nose normal, oropharynx normal Respiratory: no respiratory distress, no labored breathing and does not use accessory muscles Auscultation: + diminished lung sounds (bases) and + wheezes (but improved today; better airation as well ); no crackles Cardiovascular: RRR, no murmur, no edema Heart Sounds: normal S1 and normal S2 Vessels: posterior tibial pulses present and dorsalis pedis pulses present; no JVD Extremities: no edema Gastrointestinal (Abdomen): normal bowel sounds, soft, nontender, no hepatosplenomegaly Psychiatric: A+Ox3, euthymic affect Results & Data Vital Signs (Past 12 Hours) Vital Signs Temp Pulse Pulse Resp BP BP Pulse Ox 10/22/19 16:01 68 10/22/19 16:00 36.5 C 57 L 18 102/63 94 10/22/19 14:32 69 18 96 10/22/19 11:53 36.4 C L 73 16 106/69 90 10/22/19 11:07 67 18 96 10/22/19 07:46 36.4 C L 51 L 20 114/69 92 10/22/19 07:26 63 10/22/19 07:19 65 16 96 Laboratory Results Laboratory Results - last 24 hr 10/22/19 10/22/19 06:01 06:01 WBC 13.65 H RBC 4.01 L Hgb 12.7 Hct 38.0 MCV 94.8 MCH 31.7 MCHC 33.4 RDW Std Deviation 50.5 H RDW Coeff of Azul 14.6 H Plt Count 173 MPV 11.7 H Sodium 139 Potassium 4.2 Chloride 106 Carbon Dioxide 26 Anion Gap 7.0 BUN 29 H Creatinine 1.03 Est Cr Clr Drug Dosing 64.8 Est GFR ( Amer) 68.9 Est GFR (Non-Af Amer) 59.5 BUN/Creatinine Ratio 27.8 H Glucose 127 H Calcium 9.2 Total Bilirubin 0.4 AST 7 L ALT 20 Alkaline Phosphatase 86 Total Protein 7.0 Albumin 3.3 L Globulin 3.7 Albumin/Globulin Ratio 0.9 PG Care Time/CCT Total # of Minutes Spent Total Time Spent with Patient: Total time spent is greater than 50% in coordination of care (as documented) at patient's floor/unit and/or counseling patient: (1) Asthma Asthma complication type: with acute exacerbation Asthma persistence: persistent Asthma severity: severe Qualified Code(s): J45.51 - Severe persistent asthma with (acute) exacerbation
[2019-10-22] MEDS: MONTELUKAST SODIUM 10 MG TABLET PO SCH (20:13)
[2019-10-22] MEDS: nitrofurantoin macrocrystaL 50 MG CAP PO SCH (20:14)
[2019-10-23] MEDS ORDERED: COUGH DROP (SUGAR FREE) LOZ 24 LOZ/1 BOX BUCCAL STA (00:07)
[2019-10-23] MEDS ORDERED: COUGH DROP (SUGAR FREE) LOZ 24 LOZ/1 BOX BUCCAL ONE (00:12)
[2019-10-23] MEDS: ALBUT/IPRATROP 3MG/0.5MG NEB 3 ML VIAL NEB SCH ×6 (02:30→23:11)
[2019-10-23] MEDS: methylPREDNISolone 60 MG in SYRINGE 0 ML IV SCH ×2 (05:37→17:29)
[2019-10-23] MEDS: LEVOTHYROXINE SODIUM 125 MCG TABLET PO SCH (05:38)
[2019-10-23] MEDS: VILANTEROL INH SCH (07:54)
[2019-10-23] MEDS: [UNRECOGNIZED DRUG - OTHER] INH SCH (07:54)
[2019-10-23] MEDS: ASPIRIN 81 MG ECTAB PO SCH (07:55)
[2019-10-23] MEDS: OXYBUTYNIN CHLORIDE 5 MG TAB PO SCH (07:55)
[2019-10-23] MEDS: MULTIVITAMIN TAB PO SCH (07:55)
[2019-10-23] MEDS: TRIAMTERENE/HCTZ 37.5/25MG TAB PO SCH (07:55)
[2019-10-23] MEDS: PSYLLIUM 58.6% POWDER PACKET PO SCH (07:55)
[2019-10-23] MEDS: guaiFENesin 600 MG TABCR PO SCH ×2 (07:55→20:44)
[2019-10-23] MEDS: ACYCLOVIR 400 MG TAB PO SCH (07:56)
[2019-10-23] MEDS: BENZONATATE 100 MG CAPSULE PO SCH ×3 (07:56→20:43)
[2019-10-23] MEDS: CETIRIZINE HCL 10 MG TABLET PO SCH (07:56)
[2019-10-23] MEDS: TOCOPHERYL, DL-ALPHA 400 UNITS CAP PO SCH (07:56)
[2019-10-23] MEDS: ALPRAZolam 0.5 MG TABLET PO PRN (07:56)
[2019-10-23] MEDS: PANTOprazole 40 MG TAB PO SCH (07:56)
[2019-10-23 08:20] LABS: Hematocrit (blood only) 38.6 % (37-47); Hemoglobin 12.8 g/dL (12.0-16.0); Mean Corpuscular Hemoglobin 31.4 pg (25-34); Mean Corpuscular Hgb Conc 33.2 g/dL (32-36); Mean Corpuscular Volume 94.8 fL (80-100); Mean Platelet Volume 11.8 fL (7.4-10.4); Platelet Count 171 K/uL (130-400); RDW Coefficient of Variation 14.5 % (11.5-14.5); RDW Standard Deviation 49.8 fL (36.4-46.3); Red Blood Count 4.07 M/uL (4.2-5.4); White Blood Count 13.77 K/uL (4.8-10.8)
[2019-10-23 08:54] LABS: Albumin Level 3.6 gm/dl (3.4-5.0); BUN Creatinine Ratio 24.2 (10-20); Bilirubin,Total 0.3 mg/dl (0.2-1); Calcium 9.5 mg/dl (8.5-10.1); Creatinine Clr Calc Pharmacy 61.1 ml/min; Est GFR (African American) 63.6; Est GFR (Non-African American) 54.9; Globulin 3.5 gm/dl (2.5-4.0); Potassium 3.9 mmol/L (3.5-5.1); Total Protein 7.1 gm/dl (6.4-8.2)
--- NOTE | 2019-10-23 13:58 | Hospitalist Progress Note ---
Date of Service October 23, 2019 Assessment & Plan (1) Asthma: With exacerbation. - Taper steroids to oral tomorrow. - Continue nebs, inhalers, Mucinex, incentive spirometer & flutter valve. (2) Acute respiratory distress: At time of ER presentation - 2nd asthma exacerbation. - Resolved (3) Allergic rhinitis: Cont home meds (4) Obesity: BMI 35.5 (5) Chronic back pain: Stable; no pain while here. (6) GERD (gastroesophageal reflux disease): Cont PPI (7) Depression: (8) Anxiety: Cont alprazolam PRN -> Has lots of work stressors. (9) Osteoarthritis: Stable, no complaints today (10) Hypothyroidism: TSH 08/2019 was normal. - Cont levothyroxine 125 mcg daily (11) Recurrent UTI: Cont macrobid for UTI prophy - No current needs inpatient (12) DVT prophylaxis: SCDs; ambulating Subjective Reports overnight she had lots of coughing because her steroids were reduced. Reports no fevers/chills, chest pain, abdominal pain, nausea, or vomiting. Physical Exam Constitutional: WD/WN, vitals as above Eyes: EOM intact bilaterally; no conjunctival abnormality ENMT: external ear and nose normal, oropharynx normal Neck: trachea midline, no thyromegaly normal visual inspection Respiratory: normal respiratory effort; no respiratory distress Auscultation: + wheezes (Mild end-expiratory) Cardiovascular: RRR, no murmur, no edema Gastrointestinal (Abdomen): Inspection/Auscultation: abdomen normal to inspection; abdomen not distended Musculoskeletal: no cyanosis or clubbing, extremities motor strength 5/5 Skin: no rashes, warm and dry Neurologic: moves all extremities and awake Psychiatric: Orientation: alert, oriented to person and cooperative Results & Data Vital Signs (Past 12 Hours) Vital Signs Temp Pulse Pulse Resp BP BP Pulse Ox 10/23/19 12:42 36.8 C 68 18 118/75 95 10/23/19 11:25 86 22 94 10/23/19 07:31 63 10/23/19 07:08 36.6 C 57 L 18 113/70 93 10/23/19 06:57 63 18 93 10/23/19 05:30 96 H 20 138/71 94 10/23/19 03:20 36.5 C 65 18 111/71 95 10/23/19 02:30 60 16 95 PG Care Time/CCT Total # of Minutes Spent Total Time Spent with Patient: Total time spent is greater than 50% in coordination of care (as documented) at patient's floor/unit and/or counseling patient: (1) Asthma Asthma complication type: with acute exacerbation Asthma persistence: persistent Asthma severity: severe Qualified Code(s): J45.51 - Severe persistent asthma with (acute) exacerbation
[2019-10-23] MEDS: MONTELUKAST SODIUM 10 MG TABLET PO SCH (20:43)
[2019-10-23] MEDS: nitrofurantoin macrocrystaL 50 MG CAP PO SCH (20:44)
[2019-10-24] MEDS: ALBUT/IPRATROP 3MG/0.5MG NEB 3 ML VIAL NEB SCH ×3 (02:24→11:05)
[2019-10-24] MEDS: LEVOTHYROXINE SODIUM 125 MCG TABLET PO SCH (06:04)
[2019-10-24] MEDS: BENZONATATE 100 MG CAPSULE PO SCH (08:09)
[2019-10-24] MEDS: PANTOprazole 40 MG TAB PO SCH (08:09)
[2019-10-24] MEDS: CETIRIZINE HCL 10 MG TABLET PO SCH (08:09)
[2019-10-24] MEDS: ACYCLOVIR 400 MG TAB PO SCH (08:09)
[2019-10-24] MEDS: VILANTEROL INH SCH (08:09)
[2019-10-24] MEDS: TOCOPHERYL, DL-ALPHA 400 UNITS CAP PO SCH (08:09)
[2019-10-24] MEDS: [UNRECOGNIZED DRUG - OTHER] INH SCH (08:09)
[2019-10-24] MEDS: TRIAMTERENE/HCTZ 37.5/25MG TAB PO SCH (08:10)
[2019-10-24] MEDS: PSYLLIUM 58.6% POWDER PACKET PO SCH (08:10)
[2019-10-24] MEDS: MULTIVITAMIN TAB PO SCH (08:10)
[2019-10-24] MEDS: OXYBUTYNIN CHLORIDE 5 MG TAB PO SCH (08:10)
[2019-10-24] MEDS: guaiFENesin 600 MG TABCR PO SCH (08:10)
[2019-10-24] MEDS: ALPRAZolam 0.5 MG TABLET PO PRN (08:12)
[2019-10-24] MEDS ORDERED: predniSONE 20 MG TAB PO SCH (09:00)
--- NOTE | 2019-10-24 15:47 | Discharge Summary ---
Date of Service October 24, 2019 Admission HPI Per Admitting Provider This is a 59 yo F with PMHx of asthma, former smoker, allergic rhinitis, anxiety, panic attacks, chronic sinusitis, GERD, migraine GOLD, spondylosis, chronic sinusitis, urinary incontinence, recurrent UTI, biliary dyskinesia s/p cholecystectomy and Tarlov cyst s/p surgery with chronic LBP who presents with worsening SOB. She was evaluated by urgent care on 10/14/19 c/o cough that started on 10/12. She was evaluated with CXR and flu swab which were both negative. She was started on prednisone taper (starting 60 mg x 3d, 40 mg x 3d, 20 mg x3d, 10 mg x 3 d and then 10 mg QOD x 3 doses) and was prescribed nebulize rs. She then followed up with her PCP on 10/16/19 where she was treated with zpak, and told to continue the taper. Currently she is on Prednisone 10 mg daily(day1) and just finished the zpack today. She reports that her cough is not significantly improved since starting any of these medications. She is still bringing up slightly white sputum. She has gone into coughing fits throughout the day despite nebulizer use, steroids, azithromycin. Other symptoms include generalized fatigue, chills, denies fevers or sweats. She lives at home by herself, no recent sick contacts. 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 CXR reviewed: Mild pulmonary vasculature Patient was hypoxic at 86% on room air upon arrival, now improved with being on 2 L via NC No WBC, afebrile Principal Diagnosis Asthma exacerbation Discharge Exam Constitutional WD/WN, vitals as above Eyes EOM intact bilaterally; no conjunctival abnormality ENMT external ear and nose normal, oropharynx normal Neck trachea midline, no thyromegaly normal visual inspection Respiratory normal respiratory effort; no respiratory distress Auscultation: + wheezes (Mild end-expiratory) Cardiovascular RRR, no murmur, no edema Gastrointestinal (Abdomen) Inspection/Auscultation: abdomen normal to inspection; abdomen not distended Musculoskeletal no cyanosis or clubbing, extremities motor strength 5/5 Skin no rashes, warm and dry Neurologic moves all extremities and awake Psychiatric Orientation: alert, oriented to person and cooperative Discharge Data Allergies Allergy/AdvReac Type Severity Reaction Status Date / Time amitriptyline Allergy Unknown VERY TIRED Verified 10/20/19 12:37 bupropion Allergy Unknown "FELT Verified 10/20/19 12:37 PSYCHO" latex Allergy Unknown HIVES Verified 10/20/19 12:37 magnesium salicylate Allergy Unknown "ALLERGIC Verified 10/20/19 12:37 TO MSG ON SALADS" meloxicam Allergy Unknown "NUMBNESS Verified 10/20/19 12:37 IN ARMS" AND VIOLENT GOLD/MIGRAINES silver Allergy Unknown SKIN Verified 10/20/19 12:37 BREAKOUT sulfamethoxazole Allergy Verified 10/20/19 12:37 [From Bactrim] trimethoprim [From Bactrim] Allergy Verified 10/20/19 12:37 citalopram AdvReac Unknown WEIGHT Verified 10/20/19 12:37 GAIN, SIGNIFICANT doxycycline AdvReac Unknown SEVERE Verified 10/20/19 12:37 NAUSEA, GI UPSET escitalopram AdvReac Unknown WEIGHT Verified 10/20/19 12:37 GAIN, "FELT WORSE" fluoxetine AdvReac Unknown SIGNIFICANT Verified 10/20/19 12:37 WEIGHT GAIN 60 LBS gabapentin AdvReac Unknown EXCESSIVE Verified 10/20/19 12:37 FATIGUE, FELT LIKE A "ZOMBIE" sertraline AdvReac Unknown WEIGHT Verified 10/20/19 12:37 GAIN, FELT WORSE Consultations 10/20/19 16:51 ED Decision to Admit Stat 10/20/19 17:17 Consult Case Management - Discharge Planning Routine Hospital Course (1) Asthma: With exacerbation. - On IV steroids. Tapered to oral on discharge with a prolonged taper. - Continue nebs, inhalers, Mucinex, incentive spirometer & flutter valve as outpatient. Follow up with Dr. Wood in the clinic. (2) Acute respiratory distress: At time of ER presentation - 2nd asthma exacerbation. - Resolved (3) Allergic rhinitis: Cont home meds (4) Obesity: BMI 35.5 (5) Chronic back pain: Stable; no pain while here. (6) GERD (gastroesophageal reflux disease): Cont PPI (7) Depression: (8) Anxiety: Cont alprazolam PRN -> Has lots of work stressors. (9) Osteoarthritis: Stable, no complaints today (10) Hypothyroidism: TSH 08/2019 was normal. - Cont levothyroxine 125 mcg daily (11) Recurrent UTI: Cont macrobid for UTI prophy - No current needs inpatient (12) DVT prophylaxis: SCDs; ambulating Total Time Total Time Spent Total Time Spent (In Minutes): 35 Discharge Plan Discharge Items Patient Disposition: Home - Self-Care Reason For Visit: ACUTE HYPOXIC RESPIRATORY DISTRESS Discharge Diagnosis: Asthma exacerbation Condition on Discharge: Good Activity: Resume your previous activity Non-emergency contact: Primary Care Provider and Flea Market S[employer] Call non-emergency contact if: your symptoms worsen and your temperature is above 101 Follow-up/Referrals: Vinayak Wood MD [Primary Care Provider] - Diet: Regular Addtl Attending Provider Instructions: You were admitted for a severe asthma exacerbation. Please take your steroid as follows: Prednisone 40 mg (4 tablets) tomorrow and , Prednisone 30 mg (3 tablets) on Wednesday, Prednisone 20 mg (2 tablets) on Wednesday, Prednisone 10 mg (1 tablet) on Wednesday, then stop. You should not return to work this week unless you feel much better. You can return to work on October 30 without restrictions. Pending Studies at Discharge: No Stand-Alone Forms: My [facility], Work/School Release (Inpt), Smoking Cessation Medications and DC Order Prescriptions: New benzonatate [Tessalon Perles] 100 mg Capsule 100 mg PO TID PRN (Reason: cough) Qty: 21 RF: 0 guaifenesin [Mucinex] 600 mg Tablet Extended Release 12hr 1,200 mg PO Q12 Qty: 30 RF: 0 prednisone 10 mg tablet 10 mg PO DAILY Qty: 14 RF: 0 Continued vitamin E 400 unit capsule 400 unit PO QAM Qty: 30 RF: 0 triamterene-hydrochlorothiazid 37.5-25 mg tablet 1 tab PO QAM Qty: 90 RF: 0 multivitamin tablet 1 tab PO QAM Qty: 30 RF: 0 Zyrtec 10 mg capsule 10 mg PO QAM Qty: 90 RF: 3 albuterol sulfate [Ventolin HFA] 90 mcg/actuation HFA aerosol inhaler 1 puff INHALATION Q6H PRN (Reason: SOB) Qty: 6.7 RF: 11 levothyroxine 125 mcg tablet 125 mcg PO DAILY Qty: 30 RF: 5 alprazolam 0.5 mg tablet 0.5 mg PO TID PRN (Reason: Anxiety) Qty: 30 RF: 0 nitrofurantoin macrocrystal 100 mg capsule 100 mg PO HS Qty: 30 RF: 6 oxybutynin chloride 5 mg tablet 5 mg PO QAM Qty: 90 RF: 3 omeprazole 40 mg capsule,delayed release(DR/EC) 40 mg PO QAM RF: 0 aspirin [Aspir-81] 81 mg tablet,delayed release (DR/EC) 81 mg PO Q2D RF: 0 ibuprofen 200 mg tablet 400 mg PO QAM RF: 0 montelukast [Singulair] 10 mg tablet 10 mg PO HS RF: 0 Breo Ellipta 200-25 mcg/dose blister with device 1 inh INHALATION QAM RF: 0 calcium carbonate 260 mg calcium (648 mg) Tablet 0 mg PO QAM RF: 0 Metamucil 3.4 gram/5.4 gram Powder 1 tbsp PO QAM RF: 0 acyclovir 400 mg tablet 400 mg PO QAM RF: 0 albuterol sulfate 2.5 mg /3 mL (0.083 %) solution for nebulization 2.5 mg INHALATION QID PRN (Reason: SOB) Qty: 75 RF: 1 Discontinued azithromycin 250 mg tablet See Rx Instructions PO .COMPLEX Qty: 6 RF: 0 prednisone 20 mg tablet 20 mg PO DAILY RF: 0 Discharge Orders: Discharge Order (Routine); Ordered 10/24/19 Ordered By: Sergio Woody Admission Data Admit Date/Time: 10/20/19 17:16 Attending Provider: Sergio Woody Admit Provider: Tashia Ball Primary Care Provider: Vinayak Wood Other Providers: Sergio Woody Other Interventions: Discharge Summary Assessment (RN) Last Done: 10/24/19 11:09 DC Date/Time DO NOT enter until pt leaves facility: 10/24/19 12:55
== END 2019-10-24 12:55 | disposition home or self-care (01) ==
LOC: ED 11:42 → 2N 17:16 → SUATTDRO 17:16 → INTOOBSV 17:16 → 2N 17:55

== ENCOUNTER 2022-04-21 09:27 | Inpatient (IN) ==
--- NOTE | 2022-04-02 10:07 | PAT Medication Instructions ---
Medication Instructions Date of Service April 02, 2022 Home Medications Medication Instructions Recorded cetirizine 10 mg capsule (Zyrtec) 10 mg PO QAM #90 cap 05/09/19 multivitamin 1 tab PO QAM #30 tab 05/09/19 vitamin E 400 unit capsule 400 unit PO QAM #30 cap 05/09/19 albuterol sulfate 2.5 mg INHALATION QID PRN #75 ml 10/24/19 ipratropium bromide 0.02 % 2.5 ml INH Q6H PRN #150 ml 12/18/19 solution for inhalation epinephrine 0.3 mg/0.3 mL 0.3 mg IM Q20M PRN #2 ea 03/18/20 injection, auto-injector (EpiPen 2-Rambo) ipratropium bromide 21 mcg (0.03 See Rx Instructions .ROUTE 05/07/21 %) nasal spray .COMPLEX #30 ml montelukast 10 mg tablet See Rx Instructions .ROUTE 08/11/21 .COMPLEX #90 tab esomeprazole magnesium 40 mg 40 mg PO QAM #90 cap 08/20/21 capsule,delayed release albuterol sulfate 90 mcg/actuation 1 puff INHALATION Q6H PRN #6.7 gm 09/19/21 aerosol inhaler (Ventolin HFA) fluticasone furoate 200 1 inh INHALATION QAM #3 inhaler 09/19/21 mcg-vilanterol 25 mcg/dose inhalation powder (Breo Ellipta) omalizumab 150 mg subcutaneous 300 mg SQ .COMPLEX #2 ea 12/16/21 solution (Xolair) alprazolam 0.5 mg tablet 0.5 mg PO TID PRN #90 tab 12/18/21 azelastine 205.5 mcg (0.15 %) 1 spray INTNAS BID PRN #30 ml 12/18/21 nasal spray acyclovir 400 mg tablet 400 mg PO QAM #90 tab 01/26/22 oxybutynin chloride 5 mg tablet 5 mg PO BID #60 tab 01/28/22 hydrochlorothiazide 25 mg tablet 37.5 mg PO QAM #45 tab 02/02/22 prednisone 10 mg tablet See Rx Instructions PO DAILY #30 03/06/22 tab phentermine 15 mg capsule 15 mg PO QAM #30 cap 03/24/22 tramadol 50 mg tablet 50 mg PO BID PRN #30 tab 03/26/22 cetirizine 10 mg capsule (Zyrtec) 10 mg PO QAM multivitamin 1 tab PO QAM vitamin E 400 unit capsule 400 unit PO QAM calcium carbonate 260 mg calcium (648 mg) tablet 250 mg PO QAM psyllium husk 3.4 gram/5.4 gram oral powder (Metamucil) 1 tbsp PO QAM albuterol sulfate 2.5 mg INHALATION QID PRN ipratropium bromide 0.02 % solution for inhalation 2.5 ml INH Q6H PRN epinephrine 0.3 mg/0.3 mL injection, auto-injector (EpiPen 2-Rambo) 0.3 mg IM Q20M PRN famotidine 20 mg tablet 20 mg PO HS ipratropium bromide 21 mcg (0.03 %) nasal spray See Rx Instructions aspirin 81 mg tablet,delayed release 81 mg PO Q2D diclofenac sodium 1 % topical gel 2 g TOPICAL QID PRN levothyroxine 137 mcg tablet (Synthroid) 137 mcg PO HS montelukast 10 mg tablet See Rx Instructions .ROUTE .COMPLEX esomeprazole magnesium 40 mg capsule,delayed release 40 mg PO QAM glucosamine-chondroitin 500 mg-400 mg capsule 1 cap PO BID albuterol sulfate 90 mcg/actuation aerosol inhaler (Ventolin HFA) 1 puff INHALATION Q6H PRN fluticasone furoate 200 mcg-vilanterol 25 mcg/dose inhalation powder (Breo Ellipta) 1 inh INHALATION QAM omalizumab 150 mg subcutaneous solution (Xolair) 300 mg SQ .COMPLEX alprazolam 0.5 mg tablet 0.5 mg PO TID PRN azelastine 205.5 mcg (0.15 %) nasal spray 1 spray INTNAS BID PRN acyclovir 400 mg tablet 400 mg PO QAM oxybutynin chloride 5 mg tablet 5 mg PO BID hydrochlorothiazide 25 mg tablet 37.5 mg PO QAM prednisone 10 mg tablet See Rx Instructions PO DAILY phentermine 15 mg capsule 15 mg PO QAM ibuprofen 125 mg-acetaminophen 250 mg tablet (Advil Dual Action) 2 tab PO BID olopatadine 0.1 % eye drops (Pataday Twice Daily Relief) 1 drp OPHTHALMIC (EYE) BID tramadol 50 mg tablet 50 mg PO BID PRN Continue as directed epinephrine 0.3 mg/0.3 mL injection, auto-injector (EpiPen 2-Rambo) 0.3 mg IM Q20M PRN (if needed) ipratropium bromide 21 mcg (0.03 %) nasal spray See Rx Instructions prednisone 10 mg tablet See Rx Instructions PO DAILY omalizumab 150 mg subcutaneous solution (Xolair) 300 mg SQ .COMPLEX ASK your surgeon for instructions diclofenac sodium 1 % topical gel 2 g TOPICAL QID PRN ibuprofen 125 mg-acetaminophen 250 mg tablet (Advil Dual Action) 2 tab PO BID STOP taking 2 weeks before surgery vitamin E 400 unit capsule 400 unit PO QAM glucosamine-chondroitin 500 mg-400 mg capsule 1 cap PO BID STOP taking 5 days before surgery phentermine 15 mg capsule 15 mg PO QAM DO NOT take the morning of surgery cetirizine 10 mg capsule (Zyrtec) 10 mg PO QAM multivitamin 1 tab PO QAM calcium carbonate 260 mg calcium (648 mg) tablet 250 mg PO QAM psyllium husk 3.4 gram/5.4 gram oral powder (Metamucil) 1 tbsp PO QAM oxybutynin chloride 5 mg tablet 5 mg PO BID hydrochlorothiazide 25 mg tablet 37.5 mg PO QAM Take morning of surgery With a small sip of water, OTHERWISE NOTHING TO EAT OR DRINK AFTER MIDNIGHT: albuterol sulfate 2.5 mg INHALATION QID PRN (if needed) ipratropium bromide 0.02 % solution for inhalation 2.5 ml INH Q6H PRN (if needed) aspirin 81 mg tablet,delayed release 81 mg PO Q2D (unless surgeon directed otherwise) esomeprazole magnesium 40 mg capsule,delayed release 40 mg PO QAM albuterol sulfate 90 mcg/actuation aerosol inhaler (Ventolin HFA) 1 puff INHALATION Q6H PRN (use if needed; please bring with you to hospital day of surgery if possible) fluticasone furoate 200 mcg-vilanterol 25 mcg/dose inhalation powder (Breo Ellipta) 1 inh INHALATION QAM alprazolam 0.5 mg tablet 0.5 mg PO TID PRN (if needed) azelastine 205.5 mcg (0.15 %) nasal spray 1 spray INTNAS BID PRN (if needed) acyclovir 400 mg tablet 400 mg PO QAM olopatadine 0.1 % eye drops (Pataday Twice Daily Relief) 1 drp OPHTHALMIC (EYE) BID tramadol 50 mg tablet 50 mg PO BID PRN (if needed) Take evening before surgery albuterol sulfate 2.5 mg INHALATION QID PRN (if needed) ipratropium bromide 0.02 % solution for inhalation 2.5 ml INH Q6H PRN (if needed) famotidine 20 mg tablet 20 mg PO HS levothyroxine 137 mcg tablet (Synthroid) 137 mcg PO HS montelukast 10 mg tablet See Rx Instructions .ROUTE .COMPLEX albuterol sulfate 90 mcg/actuation aerosol inhaler (Ventolin HFA) 1 puff INHALATION Q6H PRN (if needed) alprazolam 0.5 mg tablet 0.5 mg PO TID PRN (if needed) azelastine 205.5 mcg (0.15 %) nasal spray 1 spray INTNAS BID PRN (if needed) oxybutynin chloride 5 mg tablet 5 mg PO BID olopatadine 0.1 % eye drops (Pataday Twice Daily Relief) 1 drp OPHTHALMIC (EYE) BID tramadol 50 mg tablet 50 mg PO BID PRN (if needed) Other Notes If you have any questions please call us at [phone] or [phone] or [phone] or [phone]
--- NOTE | 2022-04-07 11:29 | Anesthesiology Consultation ---
Date of Service April 07, 2022 Assessment & Plan (1) Encounter for pre-operative examination: - Patient acceptable risk for surgery pending surgeon-ordered PCP preop evaluation (04/08; SUSANG). - COVID screening: Per assessment on 04/07: No known COVID-19 positive contacts or current COVID-19 related symptoms. Travel screen negative. Patient vaccinated. Surgeon arranging preop COVID testing. Awaiting results. - S/P Lap suze (09/30/17): MAC 3.0, ETT 7.0 at [facility]. No issues per post-op anesthesia progress note. Chart Review Chart Review: Patient seen in Pre Admission Testing Teaching & Discussion Pre-Anesthesia Teaching/Discussion Notes: Instructed NPO after midnight before surgery,except medications with 15 cc of water. Medication instructions provided according to the PAT guidelines. History Surgery Operation Date: 04/21/22 07:45 Proposed Procedures p L5 -S1 Decompression and Fusion, Spinal Cord Monitoring - Kendall Loyd, Height/Weight Height: 5 ft 5 in Weight: 96.1 kg Allergies Allergy/AdvReac Type Severity Reaction Status Date / Time dog dander Allergy Unknown Itchy, Verified 04/03/22 10:50 hives horse dander Allergy Unknown Itchy, Verified 04/03/22 10:50 hives house dust Allergy Unknown Itchy, Verified 04/03/22 10:50 hives latex Allergy Unknown Hives Verified 04/03/22 10:50 magnesium salicylate Allergy Unknown Allergic Verified 04/03/22 10:50 to "MSG on salads" meloxicam Allergy Unknown Arm Verified 04/03/22 10:50 numbness, violent headaches, migraines mirabegron [From Myrbetriq] Allergy Unknown Heart Verified 04/03/22 10:50 fluttering, headaches, neck rash silver Allergy Unknown Skin Verified 04/03/22 10:50 outbreak tree and shrub pollen Allergy Unknown Itchy Verified 04/03/22 10:50 amitriptyline AdvReac Unknown Very tired Verified 04/03/22 10:50 bupropion AdvReac Unknown [place] Verified 04/03/22 10:50 "psycho" citalopram AdvReac Unknown Significant Verified 04/03/22 10:50 weight gain doxycycline AdvReac Unknown Severe Verified 04/03/22 10:50 nausea, GI upset escitalopram AdvReac Unknown Weight Verified 04/03/22 10:50 gain, felt worse fluoxetine AdvReac Unknown Significant Verified 04/03/22 10:50 weight gain gabapentin AdvReac Unknown Excessive Verified 04/03/22 10:50 fatigue, zombie-like feeling sertraline AdvReac Unknown Weight Verified 04/03/22 10:50 gain, felt worse topiramate AdvReac Unknown Unknown Verified 03/26/22 08:07 Medications Home Medications Medication Instructions Recorded Confirmed Last Taken cetirizine 10 mg capsule (Zyrtec) 10 mg PO QAM #90 cap 05/09/19 03/26/22 08/03/21 multivitamin 1 tab PO QAM #30 tab 05/09/19 03/26/22 08/03/21 vitamin E 400 unit capsule 400 unit PO QAM #30 cap 05/09/19 03/26/22 08/03/21 calcium carbonate 260 mg calcium 250 mg PO QAM 10/20/19 03/26/22 08/03/21 (648 mg) tablet psyllium husk 3.4 gram/5.4 gram 1 tbsp PO QAM 10/20/19 03/26/22 Unknown oral powder (Metamucil) albuterol sulfate 2.5 mg INHALATION QID PRN #75 ml 10/24/19 03/26/22 Unknown ipratropium bromide 0.02 % 2.5 ml INH Q6H PRN #150 ml 12/18/19 03/26/22 08/03/21 solution for inhalation epinephrine 0.3 mg/0.3 mL 0.3 mg IM Q20M PRN #2 ea 03/18/20 03/26/22 Unknown injection, auto-injector (EpiPen 2-Rambo) famotidine 20 mg tablet 20 mg PO HS 04/21/21 03/26/22 08/03/21 ipratropium bromide 21 mcg (0.03 See Rx Instructions .ROUTE 05/07/21 03/26/22 08/03/21 %) nasal spray .COMPLEX #30 ml aspirin 81 mg tablet,delayed 81 mg PO Q2D 07/29/21 03/26/22 08/01/21 release diclofenac sodium 1 % topical gel 2 g TOPICAL QID PRN 07/29/21 03/26/22 Unknown levothyroxine 137 mcg tablet 137 mcg PO HS 07/29/21 03/26/22 08/03/21 (Synthroid) montelukast 10 mg tablet See Rx Instructions .ROUTE 08/11/21 03/26/22 Unknown .COMPLEX #90 tab esomeprazole magnesium 40 mg 40 mg PO QAM #90 cap 08/20/21 03/26/22 Unknown capsule,delayed release glucosamine-chondroitin 500 mg-400 1 cap PO BID cap 08/20/21 03/26/22 Unknown mg capsule albuterol sulfate 90 mcg/actuation 1 puff INHALATION Q6H PRN #6.7 gm 09/19/21 03/26/22 Unknown aerosol inhaler (Ventolin HFA) fluticasone furoate 200 1 inh INHALATION QAM #3 inhaler 09/19/21 03/26/22 Unknown mcg-vilanterol 25 mcg/dose inhalation powder (Breo Ellipta) omalizumab 150 mg subcutaneous 300 mg SQ .COMPLEX #2 ea 12/16/21 03/26/22 Unknown solution (Xolair) alprazolam 0.5 mg tablet 0.5 mg PO TID PRN #90 tab 12/18/21 03/26/22 Unknown azelastine 205.5 mcg (0.15 %) 1 spray INTNAS BID PRN #30 ml 12/18/21 03/26/22 Unknown nasal spray acyclovir 400 mg tablet 400 mg PO QAM #90 tab 01/26/22 03/26/22 Unknown oxybutynin chloride 5 mg tablet 5 mg PO BID #60 tab 01/28/22 03/26/22 Unknown hydrochlorothiazide 25 mg tablet 37.5 mg PO QAM #45 tab 02/02/22 03/26/22 Unknown prednisone 10 mg tablet See Rx Instructions PO DAILY #30 03/06/22 03/26/22 Unknown tab phentermine 15 mg capsule 15 mg PO QAM #30 cap 03/24/22 03/26/22 Unknown ibuprofen 125 mg-acetaminophen 250 2 tab PO BID 03/26/22 03/26/22 Unknown mg tablet (Advil Dual Action) olopatadine 0.1 % eye drops 1 drp OPHTHALMIC (EYE) BID 03/26/22 03/26/22 Unknown (Pataday Twice Daily Relief) tramadol 50 mg tablet 50 mg PO BID PRN #30 tab 03/26/22 Unknown Past Medical History Medical History Anxiety Asthma Controlled Chronic sinusitis Depression Hx GERD (gastroesophageal reflux disease) Herpes zoster Acyclovir daily x years Hypothyroidism IBS (irritable bowel syndrome) Hx Migraine Hx Mitral valve prolapse Remotely noted Trace to mild MR with no MVP noted per 04/06/17 echo Peripheral edema Poor historian Spinal stenosis Tarlov cyst UTI (urinary tract infection) Recurrent Current UTI symptoms- prescribed cephalexin x3 days but has not taken yet. Preop UA being drawn at [facility] 04/07/22 prior to starting abx. Exercise / Class Metabolic Activity III < 4 Walking/Shop/Light housework (+ boats) Past Family History Family History Mother Asthma Allergies Son Allergies Asthma Sinusitis Grandfather Allergies Asthma Other No family history of adverse response to anesthesia No family history of bleeding disorder Denies family history of Ovarian cancer Crohn's disease Cardiac disorder Breast cancer Colorectal cancer Cancer Inflammatory bowel disease Hypertension Stroke Past Surgical History Surgical History History of back surgery Tarlov cyst excision (lumbar) History of dilation of urethra History of endoscopic sinus surgery History of hysterectomy History of laparoscopic cholecystectomy Lap suze (09/30/17): MAC 3.0, ETT 7.0 at [facility]. No issues per post-op anesthesia progress note. History of laparoscopy Diagnostic History of oral surgery History of sinus surgery Hx of colonoscopy Past Anesthesia History No Hx of Anesthesia Complications and No Family Hx of Anesthesia Complications History of PONV No Hx of PONV and Hx of Motion Sickness (+ boats) Social History Smoking Status: Former smoker Do You Dip or Chew Tobacco: No Smoking End Date: Quit several years Hx Alcohol Use: Yes (OCC.) Alcohol type: beer alcohol intake frequency: holidays/special occasions only Hx Substance Use: No substance use type: does not use Review of Systems Patient denies chest pain, shortness of breath, dyspnea on exertion, fever, chills, cough, wheezing, palpitations. Physical Exam Vital Signs VITALS BP 111/71 P 56 TEMP 98.2 SP02 97%RA RESP 16 PHYSICAL Full cervical extension range of motion. Full TMJ range of motion. TMD 3.5 finger breaths Mallampati Score 1 Dentition: missing molars, crown on molars Lungs: clear throughout to auscultation Cardiac: regular rate and rhythm, I/ systolic murmur Spine: normal Carotid arteries: negative bruit Extremities: no edema Lab Results Anesthesia Preop Results Results Anesthesia Widget: 2 WBC 6.15 K/uL (4.8-10.8) 04/07/22 Hgb 12.4 g/dL (12.0-16.0) 04/07/22 Hct 37.8 % (37-47) 04/07/22 Plt 193 K/uL (130-400) 04/07/22 Na 141 mmol/L (136-145) 04/07/22 K 3.3 mmol/L (3.5-5.1) L 04/07/22 Cl 103 mmol/L (98-107) 04/07/22 CO2 33 mmol/L (21-32) H 04/07/22 BUN 18 mg/dl (6-23) 04/07/22 Creat 0.90 mg/dl (0.6-1.2) 04/07/22 Glucose Level 92 mg/dl (70-99(Fasting)) 04/07/22 PT 10.5 Seconds (9.0-12.0) 04/07/22 PTT 24.8 Seconds (21.0-31.0) 04/07/22 INR 1.0 (0.9-1.1) 04/07/22 Urine Color Yellow 04/07/22 Urine Appearance Clear (Clear) 04/07/22 Urine pH 7.0 (4.5-7.5) 04/07/22 Urine Specific Ferguson 1.012 (1.000-1.030) 04/07/22 Urine Protein Negative (Negative) 04/07/22 Urine Glucose (UA) Negative (Negative) 04/07/22 Urine Ketones Negative (Negative) 04/07/22 Urine Blood Negative (Negative) 04/07/22 Urine Nitrite Negative (Negative) 04/07/22 Urine Bilirubin Negative (Negative) 04/07/22 Urine Urobilinogen Negative (Negative) 04/07/22 Urine Leukocyte Esterase Trace (Negative) H 04/07/22 Urine WBC (Auto) 1-5 /hpf (0-5) 04/07/22 Urine RBC (Auto) 0-4 /hpf (0-4) 04/07/22 Urine Hyaline Casts (Auto) 1-5 /lpf (0-5) 04/07/22 Urine Epithelial Cells (Auto) 10-20 /lpf (0-5) H 04/07/22 Urine Bacteria (Auto) Negative (Negative) 04/07/22 Blood Type A Positive 04/07/22 Antibody Screen NEGATIVE 04/07/22 Testing Electrocardiogram Date: 04/07/22 SB at 52bpm. Otherwise normal ECG. unconfirmed report. Chest X-Ray Date: 04/07/22 FINDINGS: Frontal and lateral radiographs of the chest demonstrate the cardiomediastinal silhouette to be within normal limits. The lungs are clear of alveolar opacities. There is no evidence for effusion bilaterally. There is no evidence for vascular congestion. There is no acute osseous pathology. IMPRESSION: No acute cardiopulmonary disease. Stress Test Date: 11/20/19 Stress echo/ECG negative for ischemia at 114% MPHR. EF 55 to 60%. Mild to moderate concentric LVH. No significant valvular disease. 7 METS.
[~2022-04-21 09:27] MED LIST changes: +ACETAMINOPHEN 500 MG TAB PO SCH; -ACYC400T PO; -ALBINS/ INH; -ALPR0.5T PO; -ASPI81TA28 PO; -CALC600T9 PO; -CETI10TA10 PO; +CeleBREX 200 MG CAP PO SCH; -DICL1GEL12 TOP; -DTR/5 PO; -FLUT1INH7 INH; +LR 15ML/HR IV SCH; -MONT1TAB3 PO; -MULT-506 PO; -POLY335019 PO; -PRLSR20 PO; -PROB1TAB16 PO; -RANI1TAB77 PO; -TRIATAB3 PO; -VITA400C3 PO; -VNTHFA/IN INH; +ceFAZolin 2000MG 2,000 MG/15 ML SYR IV SCH
[2022-04-21] MEDS ORDERED: LIDOCAINE 2% 2 ML VIAL/AMP(20MG/ML) INFIL ONE (10:44)
[2022-04-21] MEDS ORDERED: DEXAMETHASONE SOD INJ 4 MG/ML VIAL ONE (10:44)
[2022-04-21] MEDS ORDERED: PROPOFOL IV EMULSION 10 MG/ML 20 ML VIAL IV ONE (10:44)
[2022-04-21] MEDS ORDERED: ONDANSETRON INJ 2 MG/ML 2 ML VIAL ONE (10:44)
[2022-04-21] MEDS ORDERED: ROCURONIUM BROMIDE 10 MG/ML 5 ML VIAL IV ONE (10:44)
[2022-04-21] MEDS ORDERED: MIDAZOLAM HCL 1 MG/ML 2ML VIAL ONE (10:45)
[2022-04-21] MEDS ORDERED: fentaNYL citrate 100 MCG/2 ML VIAL ONE (10:45)
[2022-04-21] MEDS ORDERED: PROMETHAZINE HCL 12.5 MG in SODIUM CHLORIDE 0.9% 50 ML IV PRN ×2 (11:43→15:51)
[2022-04-21] MEDS ORDERED: ONDANSETRON INJ 2 MG/ML 2 ML VIAL IV PRN ×2 (11:43→15:51)
[2022-04-21] MEDS ORDERED: HYDROmorphone INJ 1 MG/ML SYRINGE IV PRN ×2 (11:43→15:51)
[2022-04-21] MEDS ORDERED: ATROPINE SULFATE 0.1 MG/ML 10ML SYR IV PRN (11:43)
--- NOTE | 2022-04-21 11:45 | History & Physical Bridge Note ---
Date of Service April 21, 2022 History & Physical Bridge Note I have examined the patient, reviewed the History & Physical and in the interval since the performance of the History & Physical I have noted the following changes of clinical significance: no changes noted
--- NOTE | 2022-04-21 11:46 | History & Physical Report ---
Date of Service April 21, 2022 Assessment & Plan (1) Neurogenic claudication due to lumbar spinal stenosis: Plan: L5-S1 decompression and fusion History of Present Illness Chief Complaint: Back and leg pain Primary Care Provider: Vinayak Wood MD This is a 62-year-old female presents with chronic persistent back and leg pain after failing course of nonoperative care she is here for surgical intervention. Allergies Allergy/AdvReac Type Severity Reaction Status Date / Time dog dander Allergy Unknown Itchy, Verified 04/21/22 09:46 hives horse dander Allergy Unknown Itchy, Verified 04/21/22 09:46 hives house dust Allergy Unknown Itchy, Verified 04/21/22 09:46 hives latex Allergy Unknown Hives Verified 04/21/22 09:46 magnesium salicylate Allergy Unknown Allergic Verified 04/21/22 09:46 to "MSG on salads" meloxicam Allergy Unknown Arm Verified 04/21/22 09:46 numbness, violent headaches, migraines mirabegron [From Myrbetriq] Allergy Unknown Heart Verified 04/21/22 09:46 fluttering, headaches, neck rash silver Allergy Unknown Skin Verified 04/21/22 09:46 outbreak tree and shrub pollen Allergy Unknown Itchy Verified 04/21/22 09:46 amitriptyline AdvReac Unknown Very tired Verified 04/21/22 09:46 bupropion AdvReac Unknown [place] Verified 04/21/22 09:46 "psycho" citalopram AdvReac Unknown Significant Verified 04/21/22 09:46 weight gain doxycycline AdvReac Unknown Severe Verified 04/21/22 09:46 nausea, GI upset escitalopram AdvReac Unknown Weight Verified 04/21/22 09:46 gain, felt worse fluoxetine AdvReac Unknown Significant Verified 04/21/22 09:46 weight gain gabapentin AdvReac Unknown Excessive Verified 04/21/22 09:46 fatigue, zombie-like feeling sertraline AdvReac Unknown Weight Verified 04/21/22 09:46 gain, felt worse topiramate AdvReac Unknown Unknown Verified 04/21/22 09:46 Home Medications Medication Instructions Recorded Confirmed Type cetirizine 10 mg capsule (Zyrtec) 10 mg PO QAM #90 cap 05/09/19 04/21/22 Rx multivitamin 1 tab PO QAM #30 tab 05/09/19 04/21/22 Rx vitamin E 400 unit capsule 400 unit PO QAM #30 cap 05/09/19 04/21/22 Rx calcium carbonate 260 mg calcium 250 mg PO QAM 10/20/19 04/21/22 History (648 mg) tablet psyllium husk 3.4 gram/5.4 gram 1 tbsp PO QAM 10/20/19 04/21/22 History oral powder (Metamucil) albuterol sulfate 2.5 mg INHALATION QID PRN #75 ml 10/24/19 04/21/22 Rx ipratropium bromide 0.02 % 2.5 ml INH Q6H PRN #150 ml 12/18/19 04/21/22 Rx solution for inhalation epinephrine 0.3 mg/0.3 mL 0.3 mg IM Q20M PRN #2 ea 03/18/20 04/21/22 Rx injection, auto-injector (EpiPen 2-Rambo) famotidine 20 mg tablet 20 mg PO HS 04/21/21 04/21/22 History ipratropium bromide 21 mcg (0.03 See Rx Instructions .ROUTE 05/07/21 04/21/22 Rx %) nasal spray .COMPLEX #30 ml aspirin 81 mg tablet,delayed 81 mg PO Q2D 07/29/21 04/21/22 History release diclofenac sodium 1 % topical gel 2 g TOPICAL QID PRN 07/29/21 04/21/22 History levothyroxine 137 mcg tablet 137 mcg PO HS 07/29/21 04/21/22 History (Synthroid) montelukast 10 mg tablet See Rx Instructions .ROUTE 08/11/21 04/21/22 Rx .COMPLEX #90 tab esomeprazole magnesium 40 mg 40 mg PO QAM #90 cap 08/20/21 04/21/22 Rx capsule,delayed release glucosamine-chondroitin 500 mg-400 1 cap PO BID cap 08/20/21 04/21/22 History mg capsule albuterol sulfate 90 mcg/actuation 1 puff INHALATION Q6H PRN #6.7 gm 09/19/21 04/21/22 Rx aerosol inhaler (Ventolin HFA) fluticasone furoate 200 1 inh INHALATION QAM #3 inhaler 09/19/21 04/21/22 Rx mcg-vilanterol 25 mcg/dose inhalation powder (Breo Ellipta) omalizumab 150 mg subcutaneous 300 mg SQ .COMPLEX #2 ea 12/16/21 04/21/22 Rx solution (Xolair) alprazolam 0.5 mg tablet 0.5 mg PO TID PRN #90 tab 12/18/21 04/21/22 Rx azelastine 205.5 mcg (0.15 %) 1 spray INTNAS BID PRN #30 ml 12/18/21 04/21/22 Rx nasal spray acyclovir 400 mg tablet 400 mg PO QAM #90 tab 01/26/22 04/21/22 Rx oxybutynin chloride 5 mg tablet 5 mg PO BID #60 tab 01/28/22 04/21/22 Rx hydrochlorothiazide 25 mg tablet 37.5 mg PO QAM #45 tab 02/02/22 04/21/22 Rx prednisone 10 mg tablet See Rx Instructions PO DAILY #30 03/06/22 04/21/22 Rx tab phentermine 15 mg capsule 15 mg PO QAM #30 cap 03/24/22 04/21/22 Rx ibuprofen 125 mg-acetaminophen 250 2 tab PO BID 03/26/22 04/21/22 History mg tablet (Advil Dual Action) olopatadine 0.1 % eye drops 1 drp OPHTHALMIC (EYE) BID 03/26/22 04/21/22 History (Pataday Twice Daily Relief) tramadol 50 mg tablet 50 mg PO BID PRN #30 tab 03/26/22 04/21/22 Rx ibuprofen 125 mg-acetaminophen 250 2 tab PO BID tab 04/08/22 04/21/22 History mg tablet (Advil Dual Action) Past Med/Surg History Medical History Anxiety Asthma Chronic sinusitis Depression GERD (gastroesophageal reflux disease) Herpes zoster Hypothyroidism IBS (irritable bowel syndrome) Migraine Mitral valve prolapse Peripheral edema Poor historian Spinal stenosis Tarlov cyst UTI (urinary tract infection) Surgical History History of back surgery History of dilation of urethra History of endoscopic sinus surgery History of hysterectomy History of laparoscopic cholecystectomy History of laparoscopy History of oral surgery History of sinus surgery Hx of colonoscopy Family History Mother Asthma Allergies Son Allergies Asthma Sinusitis Grandfather Allergies Asthma Other No family history of adverse response to anesthesia No family history of bleeding disorder Denies family history of Ovarian cancer Crohn's disease Cardiac disorder Breast cancer Colorectal cancer Cancer Inflammatory bowel disease Hypertension Stroke Social History Smoking Status: Never smoker Smoking End Date: Quit several years; Second Hand Exposure: No; Do You Dip or Chew Tobacco: No; Tobacco Cessation Education Requested by Patient: No Hx Alcohol Use: Yes (OCC.) Alcohol type: beer Hx Substance Use: No Preferred Language: Belgian Communication Ability: Effective Tire Service Technician Required: No Beliefs That Will Affect Care: None Current Living Situation: Alone current occupational status: employed current occupation: [employer] Other Information That Helps Us Care for You: No Feels Safe at Home: Yes Safety Concerns: Feels Safe At This Time Assistive Devices: Cane and Glasses Physical Exam Physical Exam: Patient is alert and oriented Heart regular rhythm Lungs clear Results & Data Results & Data ([facility]) Vital Signs (Past 12 Hours) Vital Signs Temp Pulse Resp BP Pulse Ox 04/21/22 10:07 36.7 C 56 L 18 107/66 97
[2022-04-21] MEDS ORDERED: BUPIVACAINE/EPINEPHRINE 0.25% 1:200,000 30 ML VIAL ONE (12:06)
[2022-04-21] MEDS ORDERED: ceFAZolin 330 MG/ML 1 GM VIAL ONE (12:06)
[2022-04-21] MEDS ORDERED: SCOPOLAMINE 1 MG TDSY TD ONE (12:11)
[2022-04-21] MEDS ORDERED: Nursing to Pharmacy Communication SCH (12:15)
[2022-04-21] MEDS ORDERED: HYDROmorphone INJ 2 MG/ML SYR/VIAL ONE (12:30)
[2022-04-21] MEDS ORDERED: FLOSEAL HEMOSTATIC MATRIX 10ML TOP ONE (12:57)
[2022-04-21] MEDS ORDERED: ePHEDrine sulfate 50 MG/ML AMP ONE (13:18)
[2022-04-21] MEDS ORDERED: NEOSTIGMINE METHYLSULFATE 1 MG/ML 10ML VIAL ONE (13:53)
[2022-04-21] MEDS ORDERED: GLYCOPYRROLATE 0.2 MG/ML VIAL ONE (13:53)
--- NOTE | 2022-04-21 14:03 | Operative Report ---
Post Operative Report Pre & Post Diagnosis Operation Date: 04/21/22 10:55 Pre-Op Diagnosis: Neurogenic claudication due to lumbar spinal stenosis L5-S1 Spondylolisthesis L5-S1 Post-Op Diagnosis: Same I identified the patient and participated in the time-out.: Yes Procedure Operation Date: 04/21/22 10:55 Actual Procedures #1 revision decompression with medial facetectomies and foraminotomies L5-S1. #2 posterior spinal fusion L5-S1. #3 placement posterior instrumentation L5-S1. #4 interbody fusion L5-S1. #5 placement of Spira 12 x 26 mm L5-S1. #6 placement locally harvested morselized autograft in the posterior gutters. #7 placement I factor and interbody space and infuse collagen sponge, master graft in the posterior lateral gutters. Surgeon Kendall Loyd, DO Cable Hooker Nae Milton Estimated Blood Loss 50 Findings See Below The patient is 5 foot 5 weighing 93 kg with a BMI in excess of 34. The patient's body habitus did contribute to significant technical difficulty required deeper retractors and longer instruments in order to perform her procedure. This at least 50% increased operative time. Specimens None Indications This is a 62-year-old female who presents above-mentioned diagnosis after failed course of nonoperative care she is here for the above-mentioned procedure. Description of Procedure Patient was met with identified informed consent obtained. Patient was then taken to the operative suite underwent ablation placed in a prone position on the Rik table on top of the Mendel frame. All bony prominences well-padded eyes inspected to ensure no external pressure placed upon them. This point the lumbar spine was prepped and draped in normal sterile fashion. Sharp dissection with the assistance of Bovie cautery performed down to and exposing the remaining lamina and transverse processes of L5 and sacral ala bilaterally. From caudal to cephalad fashion revision complete laminectomy of L5 was performed including medial facetectomies and foraminotomies. Pedicle screws then placed in L5 and S1 levels bilaterally with assistance of fluoroscopy and appropriate sized juan placed. By way of entrance foraminal approach on the left complete discectomy of L5-S1 was performed endplates curetted to subcortical being bone and a 12 x 26 mm spiral cage filled I factor tapped in position. The rods were then compressed locked into final position bilaterally. The transverse processes of L5 and sacral ala burred to subcortically bone. Infuse collagen sponge master graft and local autograft was placed in the posterior gutters. 15 round MIKAELA drain inserted. The incision was then closed with 1 Vicryl in the fascia 2-0 Vicryl subcutaneously and 4 Monocryl for final skin closure. Steri-Strip sterile dressings placed. Patient waken taken back in stable condition. Please note spinal cord monitoring was utilized at the procedure no changes noted. Lastly Nae Milton was present out the entire procedure and while the patient positioning complex portions of the surgery and final skin closure. I attest to the content of the Intraoperative Record and any orders documented therein. Any exceptions are noted below.
--- NOTE | 2022-04-21 14:22 | Fluoroscopy Report ---
FL lumbar spine 2-3V CLINICAL HISTORY: L5-S1 DECOMPRESSION AND FUSION TECHNIQUE: 2 views were obtained with the C-arm in the OR with the above procedure. Total fluoroscopy time was 27.5 seconds. Total skin dose was 26.3 mGy. Comparison: None available at the time of this dictation. FINDINGS/IMPRESSION: Intraoperative images were obtained of L5-S1 decompression and fusion. Please correlate with intraoperative fluoroscopy and operative report. ACT 112: Negative or not required by law. Electronically signed by: Jose Hayward M.D. 04/21/2022 2:20 PM
--- NOTE | 2022-04-21 15:10 | Anesthesiology Progress Note ---
Date of Service April 21, 2022 Anesthesia Post Procedure Vital Signs Vital Signs: Temp Pulse Pulse Resp BP Pulse Ox 04/21/22 14:50 72 16 119/72 99 04/21/22 14:40 75 12 127/74 99 04/21/22 14:30 81 10 L 129/83 100 04/21/22 14:24 36.3 C L 67 12 136/75 97 04/21/22 10:07 36.7 C 56 L 18 107/66 97 Transfer of Care Handoff Completed per policy Notes Mental Status: alert / awake / arousable Patient Amnestic to Procedure: Yes Nausea / Vomiting: adequately controlled Pain: adequately controlled Airway Patency, RR, SpO2: stable & adequate BP & HR: stable & adequate Hydration State: stable & adequate Anesthetic Complications: no major complications apparent
[2022-04-21] MEDS ORDERED: LORazepam 0.5 MG in SYRINGE 0.25 ML IV PRN (15:51)
[2022-04-21] MEDS ORDERED: METOCLOPRAMIDE HCL INJ 5 MG/ML 2 ML VIAL IV PRN (15:51)
[2022-04-21] MEDS ORDERED: MAGNESIUM HYDROXIDE SUSP 30 ML UDC PO PRN (15:51)
[2022-04-21] MEDS ORDERED: traMADol HCL 50 MG TABLET PO PRN (15:51)
[2022-04-21] MEDS ORDERED: diphenhydrAMINE Capsule 25 MG CAP PO PRN (15:51)
[2022-04-21] MEDS ORDERED: NALOXONE HCL 0.4 MG/1 ML VIAL/CARP IV PRN (15:51)
[2022-04-21] MEDS ORDERED: ALBUTEROL HFA 8 GM INHALER INH PRN (15:51)
[2022-04-21] MEDS ORDERED: SOD PHOSPHATE/SOD BIPHOSPHATE ENEMA 132 ML BTL PR PRN (15:51)
[2022-04-21] MEDS ORDERED: ALUMINUM/MAGNESIUM SUSP 30 ML UDC PO PRN (15:51)
[2022-04-21] MEDS ORDERED: ASPIRIN 81 MG ECTAB PO SCH (15:51)
[2022-04-21] MEDS ORDERED: FAMOTIDINE 20 MG TAB PO PRN (15:51)
[2022-04-21] MEDS ORDERED: bisacodyL 10 MG SUPP PR PRN (15:51)
[2022-04-21] MEDS ORDERED: LORazepam 0.5 MG TAB PO PRN (15:51)
[2022-04-21] MEDS ORDERED: HYDROmorphone INJ 0.5 MG/0.5 ML SYR IV PRN (15:51)
[2022-04-21] MEDS ORDERED: ACETAMINOPHEN 1,000 MG/100 ML VIAL IV PRN (15:51)
[2022-04-21] MEDS ORDERED: hydrOXYzine HCl 25 MG TAB PO PRN (15:51)
[2022-04-21] MEDS ORDERED: DO NOT ADMINISTER FLU VACCINE PRN (15:51)
[2022-04-21] MEDS ORDERED: [UNRECOGNIZED DRUG - REMARK] NAE PRN (15:51)
[2022-04-21] MEDS ORDERED: ALBUTEROL 0.083% NEBU SOLN 3 ML VIAL INH PRN (15:51)
[2022-04-21] MEDS ORDERED: DO NOT ADMINISTER PNEUMOCOCCAL VACCINE PRN (15:51)
[2022-04-21] MEDS ORDERED: ACETAMINOPHEN 500 MG TAB PO PRN (15:51)
[2022-04-21] MEDS ORDERED: IPRATROPIUM BROMIDE NEB SOLN 0.02% 2.5 ML VIAL INH PRN (15:51)
[2022-04-21] MEDS ORDERED: ONDANSETRON 4 MG OD TAB PO PRN (15:51)
[2022-04-21] MEDS: LACTATED RINGER'S 1,000 ML IV SCH ×2 (15:55→22:26)
[2022-04-21] MEDS: ASPIRIN 81 MG ECTAB PO SCH (17:50)
[2022-04-21] MEDS: oxyCODONE HCL IR 5 MG TAB (IMMEDIATE RELEASE) PO PRN (17:54)
--- NOTE | 2022-04-21 20:06 | Consultation ---
Date of Consultation April 21, 2022 Assessment & Plan (1) Neurogenic claudication due to lumbar spinal stenosis: s/p L5-S1 decompression/fusion procedure today by Dr Loyd. defer IV fluid management, pain meds, disposition to primary orthopedic team. patient reports not just b/l leg paresthesias but also numbness of hands. given her ambulatory issues will check B12 level in am. (2) Hypothyroidism: TSH 06/2021 wnl. Cont synthroid. (3) Depression: she is not currently on medications for such at this time. (4) GERD (gastroesophageal reflux disease): cont PPI. cont H2 charline. (5) Chronic sinusitis: noted. continue home singulair, zyrtec, etc. (6) Asthma: no exacerbation at this time. continue home inhalers. continue albuterol nebs prn. pulmonary toilet. (7) Recurrent UTI: patient reports having been treated for UTI in the last few weeks but I do not see any recent urine culture. [id number] she had a fairly normal-appearing u/a in late March, and at this time she has no UTI symptoms. simply monitor. her medical history does not show any dx of HTN but she is on HCTZ at home. uncertain if she takes this for inner ear pathology, edema, etc. will hold the HCTZ tomorrow am while awaiting her AM labs. check mag level as well for stability. Thank you for this consult. Our team will follow with you. History of Present Illness Requesting Physician: Robin Loyd DO Reason for Consultation: post-op medical management Attending Physician: Kendall Loyd DO History of Present Illness 62yo female with severe, persistent asthma, chronic low back pain, allergies, recurrent UTIs, hypothyroidism and GERD presented today for elective L5-S1 decompression-fusion procedure by Dr Loyd. I saw her post-op on the orthopedic floor where she was resting comfortably. She denied any dyspnea, chest pain, abd pain or nausea. She tolerated a light dinner this evening without any GI intolerance. She reports low back pain but nothing worse than baseline. She also reports chronic LE numbness b/l but this, too, is similar to prior. She reports having had a UTI a few weeks ago but this is fully resolved. She had diarrhea following the antibiotics for the UTI but the diarrhea is also resolved. Allergies Allergy/AdvReac Type Severity Reaction Status Date / Time dog dander Allergy Unknown Itchy, Verified 04/21/22 09:46 hives horse dander Allergy Unknown Itchy, Verified 04/21/22 09:46 hives house dust Allergy Unknown Itchy, Verified 04/21/22 09:46 hives latex Allergy Unknown Hives Verified 04/21/22 09:46 magnesium salicylate Allergy Unknown Allergic Verified 04/21/22 09:46 to "MSG on salads" meloxicam Allergy Unknown Arm Verified 04/21/22 09:46 numbness, violent headaches, migraines mirabegron [From Myrbetriq] Allergy Unknown Heart Verified 04/21/22 09:46 fluttering, headaches, neck rash silver Allergy Unknown Skin Verified 04/21/22 09:46 outbreak tree and shrub pollen Allergy Unknown Itchy Verified 04/21/22 09:46 amitriptyline AdvReac Unknown Very tired Verified 04/21/22 09:46 bupropion AdvReac Unknown [place] Verified 04/21/22 09:46 "psycho" citalopram AdvReac Unknown Significant Verified 04/21/22 09:46 weight gain doxycycline AdvReac Unknown Severe Verified 04/21/22 09:46 nausea, GI upset escitalopram AdvReac Unknown Weight Verified 04/21/22 09:46 gain, felt worse fluoxetine AdvReac Unknown Significant Verified 04/21/22 09:46 weight gain gabapentin AdvReac Unknown Excessive Verified 04/21/22 09:46 fatigue, zombie-like feeling sertraline AdvReac Unknown Weight Verified 04/21/22 09:46 gain, felt worse topiramate AdvReac Unknown Unknown Verified 04/21/22 09:46 Home Medications Medication Instructions Recorded Confirmed Type cetirizine 10 mg capsule (Zyrtec) 10 mg PO QAM #90 cap 05/09/19 04/21/22 Rx multivitamin 1 tab PO QAM #30 tab 05/09/19 04/21/22 Rx vitamin E 400 unit capsule 400 unit PO QAM #30 cap 05/09/19 04/21/22 Rx calcium carbonate 260 mg calcium 250 mg PO QAM 10/20/19 04/21/22 History (648 mg) tablet psyllium husk 3.4 gram/5.4 gram 1 tbsp PO QAM 10/20/19 04/21/22 History oral powder (Metamucil) albuterol sulfate 2.5 mg INHALATION QID PRN #75 ml 10/24/19 04/21/22 Rx ipratropium bromide 0.02 % 2.5 ml INH Q6H PRN #150 ml 12/18/19 04/21/22 Rx solution for inhalation epinephrine 0.3 mg/0.3 mL 0.3 mg IM Q20M PRN #2 ea 03/18/20 04/21/22 Rx injection, auto-injector (EpiPen 2-Rambo) famotidine 20 mg tablet 20 mg PO HS 04/21/21 04/21/22 History ipratropium bromide 21 mcg (0.03 See Rx Instructions .ROUTE 05/07/21 04/21/22 Rx %) nasal spray .COMPLEX #30 ml aspirin 81 mg tablet,delayed 81 mg PO Q2D 07/29/21 04/21/22 History release diclofenac sodium 1 % topical gel 2 g TOPICAL QID PRN 07/29/21 04/21/22 History levothyroxine 137 mcg tablet 137 mcg PO HS 07/29/21 04/21/22 History (Synthroid) montelukast 10 mg tablet See Rx Instructions .ROUTE 08/11/21 04/21/22 Rx .COMPLEX #90 tab esomeprazole magnesium 40 mg 40 mg PO QAM #90 cap 08/20/21 04/21/22 Rx capsule,delayed release glucosamine-chondroitin 500 mg-400 1 cap PO BID cap 08/20/21 04/21/22 History mg capsule albuterol sulfate 90 mcg/actuation 1 puff INHALATION Q6H PRN #6.7 gm 09/19/21 04/21/22 Rx aerosol inhaler (Ventolin HFA) fluticasone furoate 200 1 inh INHALATION QAM #3 inhaler 09/19/21 04/21/22 Rx mcg-vilanterol 25 mcg/dose inhalation powder (Breo Ellipta) omalizumab 150 mg subcutaneous 300 mg SQ .COMPLEX #2 ea 12/16/21 04/21/22 Rx solution (Xolair) alprazolam 0.5 mg tablet 0.5 mg PO TID PRN #90 tab 12/18/21 04/21/22 Rx azelastine 205.5 mcg (0.15 %) 1 spray INTNAS BID PRN #30 ml 12/18/21 04/21/22 Rx nasal spray acyclovir 400 mg tablet 400 mg PO QAM #90 tab 01/26/22 04/21/22 Rx oxybutynin chloride 5 mg tablet 5 mg PO BID #60 tab 01/28/22 04/21/22 Rx hydrochlorothiazide 25 mg tablet 37.5 mg PO QAM #45 tab 02/02/22 04/21/22 Rx prednisone 10 mg tablet See Rx Instructions PO DAILY #30 03/06/22 04/21/22 Rx tab phentermine 15 mg capsule 15 mg PO QAM #30 cap 03/24/22 04/21/22 Rx ibuprofen 125 mg-acetaminophen 250 2 tab PO BID 03/26/22 04/21/22 History mg tablet (Advil Dual Action) olopatadine 0.1 % eye drops 1 drp OPHTHALMIC (EYE) BID 03/26/22 04/21/22 History (Pataday Twice Daily Relief) tramadol 50 mg tablet 50 mg PO BID PRN #30 tab 03/26/22 04/21/22 Rx ibuprofen 125 mg-acetaminophen 250 2 tab PO BID tab 04/08/22 04/21/22 History mg tablet (Advil Dual Action) Patient History Medical History Anxiety Asthma Controlled Chronic sinusitis Depression Hx GERD (gastroesophageal reflux disease) Herpes zoster Acyclovir daily x years Hypothyroidism IBS (irritable bowel syndrome) Hx Migraine Hx Mitral valve prolapse Remotely noted Trace to mild MR with no MVP noted per 04/06/17 echo Peripheral edema Poor historian Spinal stenosis Tarlov cyst UTI (urinary tract infection) Recurrent Current UTI symptoms- prescribed cephalexin x3 days but has not taken yet. Preop UA being drawn at [facility] 04/07/22 prior to starting abx. Surgical History History of back surgery Tarlov cyst excision (lumbar) History of dilation of urethra History of endoscopic sinus surgery History of hysterectomy History of laparoscopic cholecystectomy Lap suze (09/30/17): MAC 3.0, ETT 7.0 at [facility]. No issues per post-op anesthesia progress note. History of laparoscopy Diagnostic History of oral surgery History of sinus surgery Hx of colonoscopy Family History Mother Asthma Allergies Son Allergies Asthma Sinusitis Grandfather Allergies Asthma Other No family history of adverse response to anesthesia No family history of bleeding disorder Denies family history of Ovarian cancer Crohn's disease Cardiac disorder Breast cancer Colorectal cancer Cancer Inflammatory bowel disease Hypertension Stroke Social History (Updated 04/21/22 @ 21:23 by Tyrone Frances) Smoking Status: Former smoker Tobacco Type: Cigarettes Years Smoked: 20; Cigarettes Per Day: 0.5-1ppd; Smoking End Date: Quit several years; Second Hand Exposure: No; Do You Dip or Chew Tobacco: No; Tobacco Cessation Education Requested by Patient: No Hx Alcohol Use: Yes Alcohol type: beer Alcohol Intake Frequency: 2-4 x/Month Hx Substance Use: No Preferred Language: Georgian Communication Ability: Effective Upholstery Handler Required: No Beliefs That Will Affect Care: None Current Living Situation: Alone Current Living Situation Comment: [place] current occupational status: employed current occupation: [employer]; also was hairdresser for many years How many Children do You have: 2 How many Children do You have Comment: sons Other Information That Helps Us Care for You: No Feels Safe at Home: Yes Safety Concerns: Feels Safe At This Time Assistive Devices: Cane and Glasses Review of Systems Review of Systems: gen - no fevers or chills, good appetite, no recent weight loss eyes - no visual loss HENT - no ear pain, sore throat, congestion neck - denies pain cv - no chest pain pulm - no cough, wheeze, or dyspnea GI - no nausea, emesis or abd pain; no recent rectal bleeding - no dysuria at this time musculo - chronic low back pain neuro - chronic paresthesias of hands and legs/feet; was using cane x 2 months because of leg weakness skin - no rash endo - no diabetes Physical Exam Physical Exam: gen - tired appearing but NAD, follows commands, answers all questions eyes - PERRL HENT - MMM, no thrush neck - no JVD, no masses heart - RRR, s1 s2, 2/6 systolic murmur LLSB lungs - CTA b/l, no wheeze, no rales abd - soft NT ND BS+; No HSM ext - no edema, pulses 2+ b/l neuro - strength 5/5 all muscle groups of b/l legs skin - no rash; dressings in place low back psych - a/o x 3 lymph - no cervical lymphadenopathy Results & Data ([facility]) Vital Signs (Past 12 Hours) Vital Signs Temp Pulse Pulse Resp BP Pulse Ox 04/21/22 18:38 36.5 C 60 14 140/83 98 04/21/22 17:35 36.4 C L 63 18 116/75 99 04/21/22 16:35 36.4 C L 58 L 16 118/76 98 04/21/22 16:05 36.4 C L 63 16 113/74 97 04/21/22 15:30 36.3 C L 67 13 124/65 98 04/21/22 15:20 65 14 128/63 97 04/21/22 15:10 70 14 123/63 98 04/21/22 15:00 68 14 123/65 99 04/21/22 14:50 72 16 119/72 99 04/21/22 14:40 75 12 127/74 99 04/21/22 14:30 81 10 L 129/83 100 04/21/22 14:24 36.3 C L 67 12 136/75 97 04/21/22 10:07 36.7 C 56 L 18 107/66 97 Laboratory Results Laboratory Results - last 24 hr 04/21/22 09:40 SARS-CoV-2, RNA, NAAT NEGATIVE PG Care Time/CCT Total # of Minutes Spent Total Time Spent with Patient: Total time spent is greater than 50% in coordination of care (as documented) at patient's floor/unit and/or counseling patient: Coding Level of Care Code 51716 Inpt Consult Level 3 Diagnoses Neurogenic claudication due to lumbar spinal stenosis M48.062 Hypothyroidism E03.9 Depression F32.9 GERD (gastroesophageal reflux disease) K21.9 Chronic sinusitis J32.9 Asthma J45.909 Recurrent UTI N39.0
[2022-04-21] MEDS ORDERED: [UNRECOGNIZED DRUG - OTHER] PO SCH (21:00)
[2022-04-21] MEDS ORDERED: OLOPATADINE 0.1% OP SCH (21:00)
[2022-04-21] MEDS: ceFAZolin 2000MG 2,000 MG/15 ML SYR IV SCH (21:34)
[2022-04-21] MEDS: DOCUSATE SODIUM/SENNA 50/8.6MG TAB PO SCH (21:34)
[2022-04-21] MEDS: OXYBUTYNIN CHLORIDE 5 MG TAB PO SCH (21:35)
[2022-04-21] MEDS: FAMOTIDINE 20 MG TAB PO SCH (21:35)
[2022-04-21] MEDS: MONTELUKAST SODIUM 10 MG TABLET PO SCH (21:35)
[2022-04-22] MEDS: oxyCODONE HCL IR 5 MG TAB (IMMEDIATE RELEASE) PO PRN ×3 (03:36→20:57)
[2022-04-22] MEDS: ceFAZolin 2000MG 2,000 MG/15 ML SYR IV SCH (03:36)
[2022-04-22] MEDS: LACTATED RINGER'S 1,000 ML IV SCH (05:13)
[2022-04-22] MEDS: LEVOTHYROXINE SODIUM 137 MCG TABLET PO SCH (05:14)
[2022-04-22] MEDS: POLYETHYLENE (MIRALAX) 17 GM PACK PO SCH ×3 (05:14→17:49)
[2022-04-22 06:23] LABS: Basophils # (auto) 0.01 K/uL (0-0.2); Basophils % (auto) 0.1 %; Hematocrit (blood only) 32.1 % (37-47); Hemoglobin 10.9 g/dL (12.0-16.0); Immature Granulocytes # (auto) 0.06 K/uL (0.00-0.02); Immature Granulocytes % (auto) 0.6 %; Lymphocytes # (auto) 1.39 K/uL (1.2-3.4); Lymphocytes % (auto) 13.6 %; Mean Corpuscular Hemoglobin 31.7 pg (25-34); Mean Corpuscular Volume 93.3 fL (80-100); Mean Platelet Volume 11.2 fL (7.4-10.4); Monocytes % (auto) 6.9 %; Neutrophils # (auto) 8.03 K/uL (1.4-6.5); Neutrophils % (auto) 78.8 %; Platelet Count 162 K/uL (130-400); RDW Coefficient of Variation 13.7 % (11.5-14.5); RDW Standard Deviation 46.4 fL (36.4-46.3); Red Blood Count 3.44 M/uL (4.2-5.4); White Blood Count 10.19 K/uL (4.8-10.8)
[2022-04-22 06:44] LABS: BUN Creatinine Ratio 12.7 (10-20); Calcium 8.5 mg/dl (8.5-10.1); Creatinine Clr Calc Pharmacy 92.8 ml/min; Est GFR (African American) 105.8 ml/min; Est GFR (Non-African American) 91.3 ml/min; Magnesium 1.9 mg/dl (1.7-2.4); Potassium 3.4 mmol/L (3.5-5.1)
[2022-04-22] MEDS: MULTIVITAMIN TAB PO SCH (08:05)
[2022-04-22] MEDS: PANTOprazole 40 MG TAB PO SCH (08:05)
[2022-04-22] MEDS: CALCIUM CARBONATE 1250MG TAB PO SCH (08:05)
[2022-04-22] MEDS: FLUTICASONE/VILANTEROL 200/25MCG 14 PUFFS/INHALER INH SCH (08:05)
[2022-04-22] MEDS: OXYBUTYNIN CHLORIDE 5 MG TAB PO SCH ×2 (08:06→20:52)
[2022-04-22] MEDS: ACYCLOVIR 400 MG TAB PO SCH (08:06)
[2022-04-22] MEDS: dexAMETHasone 6 MG in SYRINGE 0 ML IV SCH (08:07)
[2022-04-22] MEDS ORDERED: POTASSIUM CHLORIDE CRTAB 20 MEQ TABCR PO STA (08:25)
[2022-04-22] MEDS ORDERED: hydroCHLOROthiazide 25 MG TAB PO SCH (09:00)
[2022-04-22] MEDS ORDERED: PHENTERMINE 15 MG PO SCH (09:00)
--- NOTE | 2022-04-22 10:13 | Orthopedic Progress Note ---
Date of Service April 22, 2022 Assessment & Plan (1) Neurogenic claudication due to lumbar spinal stenosis: Plan: At this time continue physical therapy monitor MIKAELA output hopefully discharge home in the next few days. Admission and Anticipated Discharge Date Admission Date: April 21, 2022 Subjective His back pain is controlled leg symptoms markedly improved Physical Exam Physical Exam: Patient is standing and walking with a walker. She is comfortable. Is good strength testing. Results & Data ([facility]) Vital Signs (Past 12 Hours) Vital Signs Temp Pulse Resp BP Pulse Ox 04/22/22 07:25 96 04/22/22 07:14 36.6 C 52 L 16 95/56 L 04/22/22 03:12 36.4 C L 47 L 16 93/57 L 98 04/21/22 22:54 36.4 C L 48 L 16 99/62 L 98
--- NOTE | 2022-04-22 16:54 | Hospitalist Progress Note ---
Date of Service April 22, 2022 Assessment & Plan (1) Neurogenic claudication due to lumbar spinal stenosis: Plan: 62yo female with PMHxx of severe persistent asthma, chronic low back pain, allergies, recurrent UTIs, hypothyroidism, and GERD presented for elective L5-S1 decompression-fusion procedure by Dr Loyd. Hospital team consulted for management of chronic conditions. (1) Neurogenic claudication due to lumbar spinal stenosis: -s/p L5-S1 decompression/fusion procedure (04/22) by Dr. Loyd -defer IV fluid management, pain meds, disposition to primary orthopedic team -pt denies leg pain and paraesthesias since surgery (2) Hypothyroidism: -TSH 06/2021 wnl. -Cont Synthroid. (3) Depression: -not currently on medications at this time. (4) GERD (gastroesophageal reflux disease): -cont PPI. -cont H2 charline. (5) Asthma, Chronic sinusitis: -continue Singulair, albuterol prn, azelastine prn, atrovent prn -no exacerbation at this time. -pulmonary toilet. (6) Recurrent UTI: -patient reports having been treated for UTI in the last few weeks -however, normal-appearing UA in late March, and at this time remains without UTI symptoms -cont. to monitor (7) Chronic bilateral hand edema -pt reports medication was prescribed for such diagnosis; no h/o HTN -unsure chronic need for medication to begin with it, will need to f/u with pcp outpatient -hold HCTZ regardless for now, given soft BPs Thank you consulting the hospital team. From our aspect, patient is medically stable. We will sign off for now but please contact us if any issues or questions arise. (2) Hypothyroidism: (3) Depression: (4) GERD (gastroesophageal reflux disease): (5) Asthma: (6) Chronic sinusitis: Admission and Anticipated Discharge Date Admission Date: April 21, 2022 Supervising Physician Co-Signing Physician Notes I personally examined the patient and verified all mcknight points of history and exam, discussed case, and agree with decision making with Dr Bell. Generally feeling okay. No shortness of breath. Pain under control. Trying to walk as much as she can. Vitals noted, in general she is awake and alert pleasant no distress. HEENT normocephalic atraumatic mucous membranes moist. Breathing unlabored no accessory muscle use good effort. Skin shows no rashes no pallor or icterus. Neuro without focal deficits. Status post lumbar surgeryper Ortho. Hypothyroidism/asthma/chronic medical problemsall appear to be stable. Hold hydrochlorothiazide at least until PCP follow-up. Otherwise appears to be medically stable. We will be available as needed but will sign off of active management at this time. Subjective Patient seen at bedside this morning. Sitting in chair comfortably. Feeling much better since yesterday. Denies leg pain or numbness. Chronic bilateral hand numbness still present but only mildly swollen. Denies chest pain, SOB, fever, headache, N/V. Review of Systems Review of Systems: All systems reviewed & are unremarkable except as noted in HPI & below Physical Exam Physical Exam: Constitutional: in no acute distress, pleasant.. Vitals as above. HEENT: Moist mucous membranes. Neck: Supple. Trachea midline. Lungs: Clear to auscultation bilaterally with good effort. Cardiac: Regular rate and rhythm. No murmurs. Good distal extremity pulses. Abdomen: Soft, nontender, and nondistended.No guarding. MSK: No cyanosis or clubbing. Extremities motor strength 5/5. Skin: No rashes, warm, dry. Neurologic: Grossly intact cranial nerves Results & Data Results & Data ([facility]) Vital Signs (Past 12 Hours) Vital Signs Temp Pulse Pulse Resp BP Pulse Ox 04/22/22 14:44 36.7 C 63 20 94/59 L 95 04/22/22 11:04 36.8 C 53 L 20 109/62 98 04/22/22 07:25 96 04/22/22 07:14 36.6 C 52 L 16 95/56 L Laboratory Results 04/22/22 04/22/22 04/22/22 Range/Units 05:54 05:54 05:54 WBC 10.19 (4.8-10.8) K/uL RBC 3.44 L (4.2-5.4) M/uL Hgb 10.9 L (12.0-16.0) g/dL Hct 32.1 L (37-47) % MCV 93.3 (80-100) fL MCH 31.7 (25-34) pg MCHC 34.0 (32-36) g/dL RDW Std Deviation 46.4 H (36.4-46.3) fL RDW Coeff of Azul 13.7 (11.5-14.5) % Plt Count 162 (130-400) K/uL MPV 11.2 H (7.4-10.4) fL Immature Gran % (Auto) 0.6 % Neut % (Auto) 78.8 % Lymph % (Auto) 13.6 % [place] % (Auto) 6.9 % Eos % (Auto) 0.0 % Baso % (Auto) 0.1 % Neut # (Auto) 8.03 H (1.4-6.5) K/uL Lymph # (Auto) 1.39 (1.2-3.4) K/uL [place] # (Auto) 0.70 H (0.11-0.59) K/uL Eos # (Auto) 0.00 (0-0.5) K/uL Baso # (Auto) 0.01 (0-0.2) K/uL Immature Gran # (Auto) 0.06 H (0.00-0.02) K/uL Sodium 141 (136-145) mmol/L Potassium 3.4 L (3.5-5.1) mmol/L Chloride 105 (98-107) mmol/L Carbon Dioxide 30 (21-32) mmol/L Anion Gap 6 (3-11) BUN 9 (6-23) mg/dl Creatinine 0.71 (0.6-1.2) mg/dl Est Cr Clr Drug Dosing 92.8 ml/min Est GFR ( Amer) 105.8 ml/min Est GFR (Non-Af Amer) 91.3 ml/min BUN/Creatinine Ratio 12.7 (10-20) Glucose 132 H (70-99(Fasting)) mg/dl Calcium 8.5 (8.5-10.1) mg/dl Magnesium 1.9 (1.7-2.4) mg/dl Hepatitis C Ab (EIA) Pending Hep C Ab Signal/Cutoff Pending Resident Activity Tracking Resident Involvement: Resident Care Provided Care Provided: Adult Hospital Medicine
--- NOTE | 2022-04-22 19:19 | Billing Data ---
Date of Service April 22, 2022 Coding Level of Care Code 94815 Subseq Hosp Care Lvl 2
[2022-04-22] MEDS: DOCUSATE SODIUM/SENNA 50/8.6MG TAB PO SCH (20:52)
[2022-04-22] MEDS: MONTELUKAST SODIUM 10 MG TABLET PO SCH (20:53)
[2022-04-22] MEDS: FAMOTIDINE 20 MG TAB PO SCH (20:53)
[2022-04-23] MEDS: POLYETHYLENE (MIRALAX) 17 GM PACK PO SCH ×4 (00:15→16:31)
[2022-04-23] MEDS: LEVOTHYROXINE SODIUM 137 MCG TABLET PO SCH (05:56)
[2022-04-23] MEDS: oxyCODONE HCL IR 5 MG TAB (IMMEDIATE RELEASE) PO PRN ×3 (06:01→20:32)
[2022-04-23] MEDS: PANTOprazole 40 MG TAB PO SCH (07:34)
[2022-04-23] MEDS: CALCIUM CARBONATE 1250MG TAB PO SCH (07:35)
[2022-04-23] MEDS: MULTIVITAMIN TAB PO SCH (07:35)
[2022-04-23] MEDS: ACYCLOVIR 400 MG TAB PO SCH (07:35)
[2022-04-23] MEDS: FLUTICASONE/VILANTEROL 200/25MCG 14 PUFFS/INHALER INH SCH (07:35)
[2022-04-23] MEDS: dexAMETHasone 6 MG in SYRINGE 0 ML IV SCH (07:36)
[2022-04-23] MEDS: OXYBUTYNIN CHLORIDE 5 MG TAB PO SCH ×2 (07:37→20:26)
--- NOTE | 2022-04-23 08:20 | Orthopedic Progress Note ---
Date of Service April 23, 2022 Assessment & Plan (1) Neurogenic claudication due to lumbar spinal stenosis: Plan: This time we will continue physical therapy monitor MIKAELA output anticipate discharge home tomorrow. Admission and Anticipated Discharge Date Admission Date: April 21, 2022 Subjective Back pain is controlled leg symptoms improved Physical Exam Physical Exam: Patient is in bed. She appears comfortable. Is good strength testing. Results & Data ([facility]) Vital Signs (Past 12 Hours) Vital Signs Temp Pulse Resp BP Pulse Ox 04/23/22 06:21 36.8 C 60 18 98/61 L 95 04/23/22 00:28 52 L 18 97 04/22/22 23:01 36.6 C 48 L 18 103/68 94
[2022-04-23] MEDS: ASPIRIN 81 MG ECTAB PO SCH (16:32)
[2022-04-23] MEDS: DOCUSATE SODIUM/SENNA 50/8.6MG TAB PO SCH (20:25)
[2022-04-23] MEDS: MONTELUKAST SODIUM 10 MG TABLET PO SCH (20:26)
[2022-04-23] MEDS: FAMOTIDINE 20 MG TAB PO SCH (20:26)
[2022-04-24] MEDS: POLYETHYLENE (MIRALAX) 17 GM PACK PO SCH ×3 (00:04→12:06)
[2022-04-24] MEDS: LEVOTHYROXINE SODIUM 137 MCG TABLET PO SCH (05:37)
[2022-04-24] MEDS: FLUTICASONE/VILANTEROL 200/25MCG 14 PUFFS/INHALER INH SCH (08:07)
[2022-04-24] MEDS: PANTOprazole 40 MG TAB PO SCH (08:07)
[2022-04-24] MEDS: CALCIUM CARBONATE 1250MG TAB PO SCH (08:08)
[2022-04-24] MEDS: MULTIVITAMIN TAB PO SCH (08:10)
[2022-04-24] MEDS: OXYBUTYNIN CHLORIDE 5 MG TAB PO SCH (08:10)
[2022-04-24] MEDS: dexAMETHasone 6 MG in SYRINGE 0 ML IV SCH (08:12)
--- NOTE | 2022-04-24 10:49 | Discharge Summary ---
Date of Service April 24, 2022 Admission HPI Per Admitting Provider This is a 62-year-old female presents with chronic persistent back and leg pain after failing course of nonoperative care she is here for surgical intervention. Principal Diagnosis Lumbar spinal stenosis with neurogenic claudication Discharge Data Allergies Allergy/AdvReac Type Severity Reaction Status Date / Time dog dander Allergy Unknown Itchy, Verified 04/21/22 09:46 hives horse dander Allergy Unknown Itchy, Verified 04/21/22 09:46 hives house dust Allergy Unknown Itchy, Verified 04/21/22 09:46 hives latex Allergy Unknown Hives Verified 04/21/22 09:46 magnesium salicylate Allergy Unknown Allergic Verified 04/21/22 09:46 to "MSG on salads" meloxicam Allergy Unknown Arm Verified 04/21/22 09:46 numbness, violent headaches, migraines mirabegron [From Myrbetriq] Allergy Unknown Heart Verified 04/21/22 09:46 fluttering, headaches, neck rash silver Allergy Unknown Skin Verified 04/21/22 09:46 outbreak tree and shrub pollen Allergy Unknown Itchy Verified 04/21/22 09:46 amitriptyline AdvReac Unknown Very tired Verified 04/21/22 09:46 bupropion AdvReac Unknown [place] Verified 04/21/22 09:46 "psycho" citalopram AdvReac Unknown Significant Verified 04/21/22 09:46 weight gain doxycycline AdvReac Unknown Severe Verified 04/21/22 09:46 nausea, GI upset escitalopram AdvReac Unknown Weight Verified 04/21/22 09:46 gain, felt worse fluoxetine AdvReac Unknown Significant Verified 04/21/22 09:46 weight gain gabapentin AdvReac Unknown Excessive Verified 04/21/22 09:46 fatigue, zombie-like feeling sertraline AdvReac Unknown Weight Verified 04/21/22 09:46 gain, felt worse topiramate AdvReac Unknown Unknown Verified 04/21/22 09:46 Consultations 04/21/22 15:51 Consult Hospitalist Routine Procedures Performed Operation Date: 04/21/22 10:55 Actual Procedures p L5 -S1 Decompression and Fusion, Interbody Fusion, Application of I-Factor, Spinal Cord Monitoring(Not Applicable) - Kendall Loyd DO Ordered Studies 04/21/22 10:55 FL lumbar spine 2-3V Routine Hospital Course (1) Neurogenic claudication due to lumbar spinal stenosis: Patient with lumbar decompression fusion tolerated this well was taken to orthopedic for postoperative. Postop day 1 she was up and ambulating. Postop day 2 on postop day 3 MIKAELA drainage decreased appropriately. Pain well controlled. Excellent strength testing. Separately discharged home. Discharge orders instructions found in chart for further review. Total Time Total Time Spent Total Time Spent (In Minutes): 20 minutes Discharge Plan Discharge Items Patient Disposition: Home - Home Health Services Reason For Visit: Unspesified Thorasic, Thoracolumbar and Lumbosacra Discharge Diagnosis: Lumbar spinal stenosis with radiculopathy Activity: As commented below Non-emergency contact: Primary Care Provider Call non-emergency contact if: you have any medication questions Follow-up/Referrals: Vinayak Wood MD [Primary Care Provider] - Diet: Regular Addtl Attending Provider Instructions: ACTIVITY RECOMMENDATIONS: SELF CARE INSTRUCTIONS AFTER THORACIC/LUMBAR FUSIONS 1. You may walk to your tolerance. It is good exercise for your legs and back. Expect some back and intermittent leg aches and pains. 2. You may perform "counter-top" level activities (make a sandwich, shandra with a project, etc.). 3. No bending or lifting of more than 10 pounds or back twisting of any nature (roll like a log when turning in bed). 4. You may ride in a car for 20-30 minutes at a time. No driving until after your first visit with your doctor. 5. Frequent changes of position and restricting sitting to 30 minutes at a time will help limit the amount of back spasms and stiffness you may experience. 6. You may discontinue the use of ambulatory aids (cane, crutches, etc.) once your strength and confidence allow. 7. You may health care coordinator the shower and let water strike your incision when you arrive home at least once daily. Do not take a tub bath, sit in a hot tub or go into a swimming pool until after your first recheck in the office. SPECIAL CARE INSTRUCTIONS: VERY IMPORTANT TO READ AND REVIEW A. Your surgical incision has been closed with a cosmetic suture under the skin that will dissolve in about 6 weeks. In 14 days, you can use a pair of clean scissors and cut the suture that is left outside of the skin at the ends of your incision. 1. The small skin tapes can be removed 7 days after surgery if they have not fallen off by that point. 2. You may keep the wound open to air as much as possible to promote healing after post-op day number 5 unless told otherwise by your doctor. 3. If you think the wound looks like it is becoming infected (redness or worsening drainage) and/or you are experiencing fever, chill or worsening back pain and muscle spasms, contact the office so that we may evaluate you as soon as possible. B. Complications are uncommon, but please contact us if you have any signs or symptoms of: 1. wound infection (fever higher than 102.5 degrees F, redness, separation of wound, drainage, or increasing pain from the incision) 2. blood clots in legs (pain, swelling, redness and warmth in legs) 3. urinary tract infection (fever higher than 102.5 degrees F, burning upon urination or increased frequency of urination) 4. nerve problems (inability to walk on your toes or heels, numbness, loss of bowel or bladder control) 5. any other symptoms that concern you C. Please call the office at if you have any concerns or questions about your operation or recovery. D. No smoking! Smoking drastically decreases the chance of a solid fusion. E. Do not take any anti-inflammatory medications (Indocin, Advil, Motrin, Aspirin, Naprosyn, etc.) as these may inhibit the chance of a solid fusion. Tylenol is okay to take for pain. MANAGING PAIN AFTER SPINAL SURGERY 1. Narcotic medication is intended for short-term use and will be provided for surgical pain. Surgical pain usually lasts for a period of 4-6 weeks. Narcotic medication includes Percocet, Vicodin, Darvocet, Tylenol #3 or Lortab. 2. Longer-term pain is more appropriately treated with non-narcotic medication such as Tylenol ES. 3. Muscle spasm is not appropriately treated with narcotics. Muscle relaxers such as Soma, Flexeril or Skelaxin can be used along with Tylenol ES. 4. Remember that we all live with some "aches and pains". This is not unusual or uncommon after an injury or as we get older. a. Back pain is expected and may include muscle spasms for 4 to 6 weeks after surgery. The pain should gradually improve. If the pain worsens for no apparent reason, please contact the office. b. Intermittent leg pain may also be experienced and should not be concerned about unless it worsens for no apparent reason. If so, please contact the office. 5. We will provide appropriate medication within the normal guidelines of their prescribed use. We will also be very cautious and aware of potential abuse and extended duration of patients' medication needs. a. Pain medications are for your comfort and to assist with sleep and rest so that the tissue can heal. They are not provided in order to return to normal activity and should not be used through the day. To do so or worsening pain at night can result from ongoing tissue damage and dev elopment of tolerance to the prescribed medicine. 6. Please allow 2-3 days to process refills. Prescriptions will not be mailed but must be picked up at the office. FOLLOW UP VISIT: Keep your scheduled follow-up appointment. Any questions, please call the office at . Pending Studies at Discharge: No Stand-Alone Forms: My [facility] [employer], Smoking Cessation Medications and DC Order Prescriptions: New tramadol 50 mg tablet 50 mg PO Q6H PRN (Reason: pain, moderate) Qty: 30 RF: 0 oxycodone 5 mg tablet 5 mg PO Q6H PRN (Reason: pain, severe) Qty: 30 RF: 0 Continued vitamin E 400 unit capsule 400 unit PO QAM Qty: 30 RF: 0 multivitamin tablet 1 tab PO QAM Qty: 30 RF: 0 Zyrtec 10 mg capsule 10 mg PO QAM Qty: 90 RF: 3 epinephrine [EpiPen 2-Rambo] 0.3 mg/0.3 mL auto-injector 0.3 mg IM Q20M PRN (Reason: anaphylaxis) Qty: 2 RF: 0 ipratropium bromide 21 mcg (0.03 %) spray,non-aerosol See Rx Instructions .ROUTE .COMPLEX Qty: 30 RF: 11 montelukast 10 mg tablet See Rx Instructions .ROUTE .COMPLEX Qty: 90 RF: 3 albuterol sulfate [Ventolin HFA] 90 mcg/actuation HFA aerosol inhaler 1 puff INHALATION Q6H PRN (Reason: SOB) Qty: 6.7 RF: 11 Breo Ellipta 200-25 mcg/dose blister with device 1 inh INHALATION QAM Qty: 3 RF: 3 Xolair 150 mg recon soln 300 mg SQ .COMPLEX Qty: 2 RF: 11 acyclovir 400 mg tablet 400 mg PO QAM Qty: 90 RF: 3 oxybutynin chloride 5 mg tablet 5 mg PO BID Qty: 60 RF: 5 hydrochlorothiazide 25 mg tablet 37.5 mg PO QAM Qty: 45 RF: 11 phentermine 15 mg capsule 15 mg PO QAM Qty: 30 RF: 1 tramadol 50 mg tablet 50 mg PO BID PRN (Reason: pain) Qty: 30 RF: 0 famotidine 20 mg tablet 20 mg PO HS RF: 0 azelastine 205.5 mcg (0.15 %) spray,non-aerosol 1 spray INTNAS BID PRN (Reason: Congestion) Qty: 30 RF: 11 alprazolam 0.5 mg tablet 0.5 mg PO TID PRN (Reason: Anxiety) Qty: 90 RF: 2 glucosamine-chondroitin 500-400 mg capsule 1 cap PO BID RF: 0 esomeprazole magnesium 40 mg capsule,delayed release(DR/EC) 40 mg PO QAM Qty: 90 RF: 3 ipratropium bromide 0.02 % solution 2.5 ml INH Q6H PRN (Reason: shortness of breath or wheezing) Qty: 150 RF: 1 prednisone 10 mg tablet See Rx Instructions PO DAILY Qty: 30 RF: 0 Advil Dual Action 125-250 mg tablet 2 tab PO BID RF: 0 calcium carbonate 260 mg calcium (648 mg) Tablet 250 mg PO QAM RF: 0 Metamucil 3.4 gram/5.4 gram Powder 1 tbsp PO QAM RF: 0 albuterol sulfate 2.5 mg /3 mL (0.083 %) solution for nebulization 2.5 mg INHALATION QID PRN (Reason: SOB) Qty: 75 RF: 1 levothyroxine [Synthroid] 137 mcg tablet 137 mcg PO HS RF: 0 aspirin 81 mg Tablet,Delayed Release (Dr/Ec) 81 mg PO Q2D RF: 0 diclofenac sodium 1 % Gel 2 g TOPICAL QID PRN (Reason: Pain) RF: 0 Advil Dual Action 125-250 mg Tablet 2 tab PO BID RF: 0 olopatadine [Pataday Twice Daily Relief] 0.1 % Drops 1 drp OPHTHALMIC (EYE) BID RF: 0 Discharge Orders: Discharge Order (Routine); Ordered 04/24/22 Ordered By: Kendall Loyd Admission Data Admit Date/Time: 04/21/22 14:09 Attending Provider: Kendall Loyd Admit Provider: Kendall Loyd Primary Care Provider: Vinayak Wood Other Providers: Tomy Rogers
== END 2022-04-24 14:33 | disposition home health service (06) | DRG 455 ==
LOC: ASU 09:27 → 3E 14:09